=== PATIENT | male | born 1990 | race Caucasian/White ===

== ENCOUNTER 2021-03-14 10:24 | Observation (INO) | payer OTHER, SELFPAY ==
[2021-03-14] VITALS (25 sets, daily range): BP systolic 106–146; BP diastolic 57–96; PULSE 90–110; RESP 12–28; TEMP 36.2–38.9; O2SAT 98–100; BMI 34.5; BMI 48.9
--- NOTE | ~2021-03-14 | XR_ITS ---
EXAMINATION: XR abdomen obstructive series DATE: 03/15/2021 08:59 INDICATION: Assess for free intraperineal gas TECHNIQUE: Frontal supine and upright views of the abdomen were obtained. COMPARISON: CT dated 03/14/2021 FINDINGS: Small amount of gas scattered throughout the nondilated colon. No dilated gas-filled loops of bowel t o suggest obstruction. No free intraperitoneal gas appreciated. Visualized lung bases are clear. Hea rt size is normal. IMPRESSION: 1. No free intraperitoneal gas or dilated gas-filled loops of bowel to suggest obstruction. Reviewed, dictated and finalized at location A.
--- NOTE | ~2021-03-14 | CT_ITS ---
EXAMINATION: CT abdomen pelvis w con DATE: 03/14/2021 12:49 INDICATION: Left lower quadrant abdominal pain TECHNIQUE: Computed tomography (CT) of the abdomen and pelvis was performed with 100 mL Omnipaque-350 intravenous contrast. Automated exposure control and iterative reconstruction technique were employe d. The dose-length product was 1445.41 mGy-cm. COMPARISON: None FINDINGS: Lung bases are clear. Heart size is normal. No pericardial or pleural effusion. Liver, gallbladder, s pleen, pancreas, bilateral adrenal glands and kidneys are normal. Moderate diverticulosis with descen ding and sigmoid colon predominance. Prominent inflammatory stranding surrounding an approximately 4 x 3 cm region of phlegmonous change and a few small foci of extraluminal gas along the posterior aracelis in of the junction of the descending and sigmoid colon consistent with diverticulitis with microperfo ration. No organized abscess or more remote free intraperitoneal gas. Small bowel and appendix are no rmal. Bladder is normal. Minimal likely reactive free fluid in the deep pelvis. No pathologically enl arged abdominal or pelvic lymphadenopathy. Moderate thoracic and mild lumbar spondylosis. IMPRESSION: 1. Diverticulitis. Reviewed, dictated and finalized at location A. IMPRESSION: 1. Diverticulitis.
[2021-03-14 10:58] LABS: Basophils Absolute Auto 0.1 K/mm3 (0.0-0.1); Basophils Percent Auto 0.3 % (0.2-1.2); Eosinophils Absolute Auto 0.1 K/mm3 (0-0.3); Eosinophils Percent Auto 0.5 % (0-4.4); Hematocrit 39.4 % (42.0-52.0); Hemoglobin 13.1 g/dL (14.0-18.0); Immature Granulocyte Absolute 0.07 K/mm3 (0.00-0.031); Immature Granulocyte Percent A 0.4 % (0-0.5); Lymphocytes Absolute Auto 2.15 K/mm3 (0.9-3.2); Lymphocytes Percent Auto 11.7 % (18.3-44.2); Mean Corpuscular HGB Conc 33.2 g/dl (32-36); Mean Corpuscular Hemoglobin 27.8 pg (26-34); Mean Corpuscular Volume 83.7 fl (80-100); Monocytes Absolute Auto 1.8 K/mm3 (0.1-0.6); Monocytes Percent Auto 9.7 % (2.6-8.5); Neutrophils Absolute Auto 14.3 K/mm3 (1.3-6.7); Neutrophils Percent Auto 77.4 % (45.5-73.1); Platelet Count Result 327 k/mm3 (150-375); Red Blood Count 4.71 M/mm3 (4.6-6.20); Red Cell Distribution Width 13.9 % (11.5-14.5); White Blood Count 18.4 K/mm3 (4.5-10.0)
[2021-03-14 11:06] LABS: Add Urine Microscopic? YES; Appearance Urine Clear (Clear); Bilirubin Urine Negative (Negative); Blood Urine Negative (Negative); Color Urine Amber (Yellow); Glucose Urine UA Negative (Negative); Ketones Urine Negative (Negative); Leukocyte Esterase Ur Negative LEU/UL (Negative); Mucus Urine Few /lpf; Nitrate Urine Negative (Negative); Protein Urine 3+ mg/dL (Negative); RBC Urine 0-2 /hpf (0-2); Urobilinogen Urine Negative mg/dL (<2.0)
[2021-03-14 11:08] LABS: Alanine Aminotransferase 25 U/L (4-50); Albumin Level 4.3 g/dL (3.5-5.1); Alkaline Phosphatase 93 U/L (38-126); Anion Gap 13 mmol/L (8-16); Aspartate Amino Transferase 17 U/L (17-59); Bilirubin,Total 0.9 mg/dL (0.2-1.3); Blood Urea Nitrogen 9 mg/dL (9-20); Calcium 9.4 mg/dL (8.4-10.2); Carbon Dioxide 25 mmol/L (22-30); Chloride 101 mmol/L (98-107); Estimated CRCL calculation 98 ml/min; Estimated Glomerular Filt Rate > 60; Glucose 93 mg/dL (65-110); Lipase 71 U/L (23-300); Potassium 4.2 mmol/L (3.4-5.0); Sodium 139 mmol/L (137-145)
[2021-03-14 11:09] LABS: Specific Grav Ur 1.033 (1.001-1.035)
--- NOTE | 2021-03-14 13:16 | ED.ABDPAIN ---
HPI - Abdominal Pain General Chief Complaint: Abdominal Pain Stated Complaint: ABD PAIN Time Seen by Provider: 03/14/21 12:09 History of Present Illness HPI narrative: Patient is a 30-year-old male who presents ER with left side abdominal pain. Ongoing for 8 days. Tender to touch and with movement. Also worsens with eating. Radiates to the midline suprapubic region. Reports chronic diarrhea. No blood in it. Denies fevers or chills or sweats. No nausea or vomiting. Has been on ciprofloxacin for 2 days after seeing an urgent care. Related Data Home Medications Medication Instructions Recorded Confirmed ciprofloxacin HCl 500 mg PO BID 03/14/21 03/14/21 Allergies Allergy/AdvReac Type Severity Reaction Status Date / Time No Known Allergies Allergy Verified 03/14/21 15:52 Review of Systems Review of Systems: All systems reviewed & are unremarkable except as noted in HPI and below Constitutional: Constitutional: Denies chills, Denies fever(s) and Denies weakness ENT: Denies nasal congestion and Denies sore throat Respiratory: Respiratory: Denies cough and Denies dyspnea Gastrointestinal: Gastrointestinal: Reports abdominal pain, Reports diarrhea, Denies nausea and Denies vomiting Genitourinary: Genitourinary: Denies dysuria and Denies urinary frequency PMFSH Past Medical History Medical History Healthy adult male Obesity (BMI 35.0-39.9 without comorbidity) Surgical History Surgical History No history of previous surgery Family History Family History Grandparent Diabetes mellitus Coronary artery disease involving coronary bypass graft Mother Hypertension Grandparent Bladder cancer Social History Social History Smoking status: Current every day smoker Tobacco type: e-cigarettes/vaping Second hand tobacco smoke exposure: Yes Additional smoking assessment comments: patient vapes Alcohol intake: current Substance use: never Substance use type: does not use Last use: rarely drinks alcohol Gender identity (if verbalized by the patient): Male Spiritual care concerns: No Exam Narrative: GENERAL: Well-appearing, well-nourished, and in no acute distress. HEAD: Normocephalic, atraumatic. EYES: PERRL and EOMI. CHEST: Clear to auscultation. No respiratory distress. HEART: Regular rate and rhythm. Normal peripheral pulses. ABDOMEN: Soft, tender palpation left lower quadrant with guarding, nondistended. EXTREMITIES: Normal range of motion. No edema. SKIN: Warm, dry, no rash. NEURO: Alert and oriented x3. PSYCH: Normal mood and affect. Course Course Emergency Course: Admit to hospitalist service. General surgery consulting. Patient aware of diagnosis and treatment plan. Vital Signs Vital signs: Vital Signs Temperature 97.5 F L 03/14/21 10:26 Pulse Rate 100 03/14/21 10:26 Respiratory Rate 20 03/14/21 10:26 Blood Pressure 143/96 H 03/14/21 10:26 Pulse Oximetry 100 03/14/21 10:26 Temperature 99.6 F 03/14/21 21:51 Pulse Rate 110 H 03/14/21 21:51 Respiratory Rate 16 03/14/21 21:51 Blood Pressure 119/76 03/14/21 21:51 Pulse Oximetry 98 03/14/21 21:51 MDM - Abdominal Pain Lab Data Result diagrams: 03/14/21 10:35 03/14/21 10:35 Labs: Lab Results 03/14/21 03/14/21 03/14/21 Range/Units 10:35 10:35 10:42 WBC 18.4 H (4.5-10.0) K/mm3 RBC 4.71 (4.6-6.20) M/mm3 Hgb 13.1 L (14.0-18.0) g/dL Hct 39.4 L (42.0-52.0) % MCV 83.7 (80-100) fl MCH 27.8 (26-34) pg MCHC 33.2 (32-36) g/dl RDW 13.9 (11.5-14.5) % Plt Count 327 (150-375) k/mm3 MPV 10.0 (7.4-10.4) fl Immature Gran % (Auto) 0.4 (0-0.5) % Neut % (Auto) 77.4 H (45.5-7
[2021-03-14] MEDS: MORPHINE SULFATE (*CRX) 4 MG/ML INJ IV PUSH ×2 (13:58→17:34)
--- NOTE | 2021-03-14 14:44 | PM.CNGS ---
Assessment and Plan Assessment and plan (1) Diverticulitis of large intestine with perforation without abscess or bleeding: Onset Date: ~02/2021 Code(s): K57.20 - Diverticulitis of large intestine with perforation and abscess without bleeding Status: Acute Assessment and Plan: is the main reason for the patient's admission. We would like to put him in on IV antibiotics for several days. Keep him NPO overnight and repeat abdominal film to make sure there is not increased free air tomorrow morning. If there is not consider gradually advancing his diet. Then he will go home so that he will get a total of 10-14 days of antibiotics. Discussed with him possible colonoscopy as a follow-up afterwards to determine the extent of the diverticuli. May need to get GI involved in doing this since the patient is significantly overweight. I have explained diverticulitis to him provided with the patient information min regarding this for him to read and I will answer more questions tomorrow. (2) Obesity (BMI 35.0-39.9 without comorbidity): Code(s): E66.9 - Obesity, unspecified Status: Acute Additional Plan IV fluid rehydration IV antibiotics Repeat labs in a.m. Repeat abdominal film in a.m. to rule out increased amount of free air. Ambulate in the hallway t.i.d. History of Present Illness Consult details Consult date: 03/14/21 Reason for consult: abdominal pain Requesting physician: Roly Covarrubias MD Narrative: Patient is a 30-year-old male who presents to the ER with left side lower abdominal pain. He says this started about 8 days. Patient states that it gradually without worse. He was seen in urgent care for evaluation several days ago and got put on soft ciprofloxacin and prickly. Do not know if his previous CT was done for that. Prior to this he has never known that he had diverticulitis.Tender to touch and with movement. Also, it worsens with eating. Radiates to the midline suprapubic region. Reports chronic diarrhea. No blood in it. Denies fevers or chills or sweats. No nausea or vomiting. Has been on ciprofloxacin for 2 days after seeing an urgent care. I was called after the workup in the emergency room today at [facility] shows significant inflammation for a 2-6 cm segment of sigmoid colon with some small air bubbles near by. No other free air within the abdomen and no other specific abnormalities within the abdomen. Patient states he thinks he has lost about 10 lb in weight over the last week to 10 days. Prior to that he thinks he weighed 320 lb. Review of Systems Constitutional: Constitutional: Reports as per HPI and Denies headache(s) Eyes: Eyes: Denies loss of vision and Denies eye pain ENT: Reports Normal hearing present, Denies change in voice, Denies dizziness and Denies headache(s) Cardiovascular: Cardiovascular: Denies chest pain and Denies dyspnea Respiratory: Respiratory: Denies dyspnea and Denies wheezing Gastrointestinal: Gastrointestinal: Reports abdominal pain ( Mainly below the level umbilicus, left greater than right), Reports change in stool character, Reports diarrhea ( loose stools least 3 times a day for most of his life and now slightly ---), Denies nausea and Denies vomiting Comments: and now the loose stools are slightly more frequent over the last 6 days. Genitourinary: Genitourinary: Reports no additional male genitourinary complaints Musculoskeletal: Musculoskeletal: Denies back pain and Denies arthralgias Neurologic: Reports Normal hearing present, Denies dizziness, Denies headache(s), Denies loss of vision and Denies memory loss Psychiatric: Psychiatric: Denies memory loss and Denies panic attacks Endocrine: Endocrine: Reports no additional endocrine complaints Hematologic/Lymphatic: Hematologic/Lymphatic: Reports no additional hematologic/lymphatic complaints Allergic/Immunologic: Allergic/Immunologic: Denies wheezing PMFSH Past Medical History Med
--- NOTE | 2021-03-14 15:45 | ADMGEN ---
This patient, Oscar Kebede, was admitted to Medical Room 250-. Patient/family oriented to hospital policies and general routines including ID bracelet, bed and alarms, visiting hours, pain management, procedures, bathroom and other care routines, personal items, smoking policy, room service/diet, and visiting hours. Information on how to activate the Rapid Response Team has been discussed. Patient/Family are encouraged to report perceived risks to care and to ask questions if they do not understand what they are told or what they should do.
--- NOTE | 2021-03-14 16:05 | PM.IMHP ---
H&P: HPI History of Present Illness Date/Time: 03/14/21 16:05 Chief Complaint: abdominal pain Narrative: Oscar Kebede is a 30 year man with a past medical history of obesity and vaping who has been admitted after presenting to the ED with complaints of worsening lower abdominal pain. He denies any similar symptoms in the past. He tells me the pain started last Tuesday. He reports associated diarrhea and increased pain with eating. He denies any fever, chills, nausea or vomiting. He was seen in the urgent care 2 days ago and prescribed ciprofloxacin. He was taking ibuprofen with no improvement in pain. ED evaluation included and revealed: WBC 18.4; CT of A/P showed moderate diverticulosis with prominent inflammatory stranding surrounding an approximately 4x3 cm region of phlegmonous change and a few small foci of extraluminal gas along the posterior margin of the junction of the descending and sigmoid colon consistent with diverticulitis with microperforation. IV antibiotics were initiated and general surgery was consulted. The patient has been admitted for further evaluation and treatment. Review of Systems Review of Systems: All systems reviewed & are unremarkable except as noted in HPI and below PMFSH Past Medical History Medical History Healthy adult male Obesity (BMI 35.0-39.9 without comorbidity) Surgical History Surgical History No history of previous surgery Family History Family History Grandparent Diabetes mellitus Coronary artery disease involving coronary bypass graft Mother Hypertension Grandparent Bladder cancer Social History Social History Smoking status: Current every day smoker Tobacco type: e-cigarettes/vaping Second hand tobacco smoke exposure: Yes Additional smoking assessment comments: patient vapes Alcohol intake: current Substance use: never Substance use type: does not use Last use: rarely drinks alcohol Gender identity (if verbalized by the patient): Male Spiritual care concerns: No Meds Home Medications and Allergies Home Medications Medication Instructions Recorded Confirmed Type ciprofloxacin HCl 500 mg PO BID 03/14/21 03/14/21 History Allergies Allergy/AdvReac Type Severity Reaction Status Date / Time No Known Allergies Allergy Verified 03/14/21 15:52 Vital Signs Vital Signs - 24 hr 03/14/21 10:26 03/14/21 12:14 03/14/21 12:15 Temperature 36.4 C L Pulse Rate 100 91 94 Respiratory Rate 20 17 22 H Blood Pressure 143/96 H Pulse Oximetry 100 99 99 03/14/21 12:16 03/14/21 12:30 03/14/21 12:31 Temperature Pulse Rate 93 92 93 Respiratory Rate 17 22 H 14 Blood Pressure 139/57 L 142/94 H Pulse Oximetry 100 100 03/14/21 12:52 03/14/21 12:53 03/14/21 12:54 Temperature Pulse Rate 91 94 104 H Respiratory Rate 20 20 19 Blood Pressure 136/66 Pulse Oximetry 100 100 100 03/14/21 13:01 03/14/21 13:02 03/14/21 13:15 Temperature Pulse Rate 95 92 93 Respiratory Rate 23 H 21 H 22 H Blood Pressure 126/84 Pulse Oximetry 100 100 99 03/14/21 13:16 03/14/21 13:52 03/14/21 14:00 Temperature Pulse Rate 90 92 95 Respiratory Rate 26 H 28 H 20 Blood Pressure 129/79 Pulse Oximetry 100 100 100 03/14/21 14:01 03/14/21 14:15 03/14/21 14:16 Temperature Pulse Rate 91 93 90 Respiratory Rate 22 H 20 20 Blood Pressure 141/78 H 129/80 Pulse Oximetry 100 99 99 03/14/21 14:30 03/14/21 14:34 03/14/21 15:20 Temperature Pulse Rate 90 90 92 Respiratory Rate 12 20 14 Blood Pressure 144/92 H 106/69 Pulse Oximetry 99 100 99 Exam Const: General: no acute distress, alert and awake Orientation/consciousness: patient oriented x3 HENMT: Head: normocephalic an
[2021-03-14] MEDS: SODIUM CHLORIDE 0.9% IV 1,000 ML 75 ML IV CONT (17:00)
[2021-03-14] MEDS: NICOTINE (*PBKC) 14 MG PATCH 1 PATCH TRANSDERM (17:01)
[2021-03-14] MEDS: HEPARIN SODIUM 5,000 UNITS/ML VIAL 5000 UNITS SUB-Q (17:09)
[2021-03-14] MEDS: ACETAMINOPHEN 325 MG TABLET 650 MG PO (20:54)
[2021-03-15 00:38] VITALS: TEMP 37.2
[2021-03-15 05:29] LABS: Basophils Absolute Auto 0.1 K/mm3 (0.0-0.1); Basophils Percent Auto 0.4 % (0.2-1.2); Eosinophils Absolute Auto 0.2 K/mm3 (0-0.3); Eosinophils Percent Auto 1.7 % (0-4.4); Hematocrit 37.4 % (42.0-52.0); Hemoglobin 12.1 g/dL (14.0-18.0); Immature Granulocyte Absolute 0.06 K/mm3 (0.00-0.031); Immature Granulocyte Percent A 0.4 % (0-0.5); Lymphocytes Absolute Auto 2.63 K/mm3 (0.9-3.2); Mean Corpuscular HGB Conc 32.4 g/dl (32-36); Mean Corpuscular Hemoglobin 27.4 pg (26-34); Mean Corpuscular Volume 84.8 fl (80-100); Monocytes Absolute Auto 1.5 K/mm3 (0.1-0.6); Monocytes Percent Auto 10.8 % (2.6-8.5); Neutrophils Absolute Auto 9.4 K/mm3 (1.3-6.7); Neutrophils Percent Auto 67.7 % (45.5-73.1); Platelet Count Result 273 k/mm3 (150-375); Red Blood Count 4.41 M/mm3 (4.6-6.20); Red Cell Distribution Width 14.2 % (11.5-14.5); White Blood Count 13.8 K/mm3 (4.5-10.0)
[2021-03-15 05:45] LABS: Anion Gap 12 mmol/L (8-16); Blood Urea Nitrogen 8 mg/dL (9-20); Calcium 8.9 mg/dL (8.4-10.2); Carbon Dioxide 23 mmol/L (22-30); Chloride 102 mmol/L (98-107); Estimated CRCL calculation 144 ml/min; Estimated Glomerular Filt Rate > 60; Glucose 84 mg/dL (65-110); Magnesium 1.7 mg/dL (1.6-2.3); Potassium 3.8 mmol/L (3.4-5.0); Sodium 137 mmol/L (137-145)
[2021-03-15 06:00] VITALS: BP 135/72; PULSE 75; RESP 18; TEMP 36.2; O2SAT 100
[2021-03-15] MEDS: HEPARIN SODIUM 5,000 UNITS/ML VIAL 5000 UNITS SUB-Q ×2 (06:02→17:04)
[2021-03-15] MEDS: NICOTINE (*PBKC) 14 MG PATCH 1 PATCH TRANSDERM (08:03)
[2021-03-15] MEDS: SODIUM CHLORIDE 0.9% IV 1,000 ML 75 ML IV CONT (08:05)
[2021-03-15 14:00] VITALS: BP 131/75; PULSE 87; RESP 16; TEMP 36.4; O2SAT 98
--- NOTE | 2021-03-15 15:38 | PM.IMPN ---
Progress Note: A&P Assessment and Plan (1) Diverticulitis of large intestine with perforation without abscess or bleeding: Onset Date: ~02/2021 Code(s): K57.20 - Diverticulitis of large intestine with perforation and abscess without bleeding Status: Acute Assessment and Plan: CT of A/P noted above IV zosyn Pain management NPO GS consulted, recommendations appreciated Monitor Repeat abdominal x-ray today showed no free intraperitoneal gas or dilated gas-filled loops of the bowel to suggest obstruction. (2) Pharmacologic contraindication to deep vein thrombosis (DVT) prophylaxis: Code(s): Z53.09 - Procedure and treatment not carried out because of other contraindication Status: Acute Assessment and Plan: Heparin (3) Vaping nicotine dependence, non-tobacco product: Code(s): F17.200 - Nicotine dependence, unspecified, uncomplicated Status: Acute Assessment and Plan: Cessation advised Nitroderm (4) Morbid obesity: Code(s): E66.01 - Morbid (severe) obesity due to excess calories Status: Acute Assessment and Plan: Lifestyle modifications encouraged Subjective Date/time seen: 03/15/21 07:30 Interval history: Oscar Kebede is a 30 year man with a past medical history of obesity and vaping who has been admitted after presenting to the ED with complaints of worsening lower abdominal pain. Patient states he is feeling lot better today with his belly pain is not as bad. He also stated that he was very hungry and he was felt a little weak and fatigued today. He has had a BM today however he said with liquid which he claims some most of the time his BMs are liquid. Patient denied chest pain, shortness of breath, nausea, vomiting, chills. Review of Systems Review of Systems: All systems reviewed & are unremarkable except as noted in HPI and below Exam Const: General: no acute distress, alert and awake Orientation/consciousness: patient oriented x3 HENMT: Head: normocephalic and atraumatic Ears: hearing grossly normal bilaterally and external ears normal Face and sinus: face symmetric Mouth: Yes Normal oral and palatal mucosa present Eyes: Pupils: Equal, round and reactive pupils present EOM: EOMs intact bilaterally Neck: Neck: full ROM, trachea midline and no JVD Thyroid: thyroid normal Chest: Chest palpation & inspection: normal inspection of the chest Resp: Effort & Inspection: normal respiratory effort Auscultation: clear to auscultation bilaterally Cardio: Jugular venous distension: no JVD Rate: regular rate Rhythm: regular rhythm Heart sounds: S1 normal heart sound present and S2 normal heart sound present GI: Inspection: normal to inspection Auscultation: normal bowel sounds : General: Yes no CVA tenderness Back/Spine/Pelvis: Back: no CVA tenderness Skin: General skin exam: normal color Rashes: no rashes Neuro: General: patient oriented x3 and CN's II-XI intact bilaterally Cranial nerves: Yes Equal, round and reactive pupils present Speech: normal speech Psych: Appearance: grossly normal Affect: normal affect Judgement: Good judgement present (Psych) Objective Data Vital Signs Vital Signs: Vital Signs - 24 hr 03/14/21 16:00 03/14/21 20:54 03/14/21 21:50 Temperature 36.2 C L 38.8 C H 37.6 C Pulse Rate 91 Respiratory Rate 16 Blood Pressure 146/71 H Pulse Oximetry 100 03/14/21 21:51 03/15/21 00:38 03/15/21 06:00 Temperature 37.6 C 37.2 C 36.2 C L Pulse Rate 110 H 75 Respiratory Rate 16 18 Blood Pressure 119/76 135/72 Pulse Oximetry 98 100 03/15/21 14:00 Temperature 36.4 C Pulse Rate 87 Respiratory Rate 98 H Blood Pressure 131/75 Pulse Oximetry 16 L Intake/Output Intake/Output: Intake & Output 03/12/21 03/13/21 03/14/21 03/15/21 23:59 23:59 23:59 23:59 Intake Total 100 1150 Balance 100 1150 Meds/Results Medications: Active Medications Generic Name Dose Rou
--- NOTE | 2021-03-15 16:58 | PM.PNGS ---
Progress Note: A&P Assessment and Plan (1) Diverticulitis of large intestine with perforation without abscess or bleeding: Onset Date: ~02/2021 Code(s): K57.20 - Diverticulitis of large intestine with perforation and abscess without bleeding Status: Acute Assessment and Plan: This is the main reason for the patient's admission. We would like to put him in on IV antibiotics for several days. Keep him NPO overnight and repeat abdominal film to make sure there is not increased free air tomorrow morning. If there is not consider gradually advancing his diet. Then he will go home on Cipro and Flagyl so that he will get a total of 10-14 days of antibiotics. Discussed with him possible colonoscopy as a follow-up afterwards to determine the extent of the diverticuli. May need to get GI involved in doing this since the patient is significantly overweight. I have explained diverticulitis to him provided with the patient information manaul regarding this for him to read and I will answer more questions as I continue to see him. (2) Obesity (BMI 35.0-39.9 without comorbidity): Code(s): E66.9 - Obesity, unspecified Status: Acute Additional Plan IV fluid rehydration IV antibiotics Repeat labs in a.m. WBC sown some today). Ambulate in the hallway t.i.d. Subjective Subjective Date/Time Seen: 03/15/21 16:58 Patient reports: no new complaints and feels better Interval history: patient states he needed morphine for some pain yesterday but today it is better any does not need it. He has about 3/10 pain and refused even Tylenol for this. He is hungry and would like to start a diet. Positive flatus no bowel movement yet in the hospital. Review of Systems Constitutional: Constitutional: Reports no additional constitutional complaints ENT: Reports other (Mucous Membranes moist.) Cardiovascular: Cardiovascular: Denies dyspnea Respiratory: Respiratory: Denies pain on inspiration and Denies dyspnea Musculoskeletal: Musculoskeletal: Reports other (No calf swelling or edema) Integumentary/Breasts: Skin/Breast: Reports system reviewed and no additional complaints, except as docu Exam Const: General: cooperative, no acute distress, alert and awake Orientation/consciousness: patient oriented x3 HENMT: Mouth: Yes moist mucous membranes Neck: Neck: normal visual inspection Chest: Chest palpation & inspection: normal inspection of the chest Resp: Effort & Inspection: normal respiratory effort Auscultation: clear to auscultation bilaterally Cardio: Jugular venous distension: no JVD Rate: regular rate Rhythm: regular rhythm GI: GI Palp: Yes Tenderness to palpation present (GI) ( Mild in left lower quadrant but improved elsewhere.) Auscultation: normal bowel sounds Rectal Exam: deferred Neuro: General: patient oriented x3 and moves all extremities Speech: normal speech Extrem: General: normal exam except as noted Psych: Mental Status: mental status grossly normal Speech and movement: Normal speech and movement present Affect: normal affect Thought content: Yes Normal thought content present Objective Data Vital Signs Vital Signs: Vital Signs - 24 hr 03/14/21 20:54 03/14/21 21:50 03/14/21 21:51 Temperature 38.8 C H 37.6 C 37.6 C Pulse Rate 110 H Respiratory Rate 16 Blood Pressure 119/76 Pulse Oximetry 98 03/15/21 00:38 03/15/21 06:00 03/15/21 14:00 Temperature 37.2 C 36.2 C L 36.4 C Pulse Rate 75 87 Respiratory Rate 18 98 H Blood Pressure 135/72 131/75 Pulse Oximetry 100 16 L Intake/Output Intake/Output: Intake & Output 03/12/21 03/13/21 03/14/21 03/15/21 23:59 23:59 23:59 23:59 Intake Total 100 1150 Balance 100 1150 Meds/Results Medications: Active Medications Generic Name Dose Route Start Last Admin Trade Name Freq PRN Reason Stop Dose Admin Acetaminophen 650 mg 03/14/21 13:31 03/14/21 20:54 Acetaminophen 325 Mg Tablet PO 65
[2021-03-15] MEDS: metroNIDAZOLE 250 MG TABLET 500 MG PO ×2 (17:08→23:46)
[2021-03-15 21:41] VITALS: BP 140/83; PULSE 84; RESP 16; TEMP 36.2; O2SAT 97
[2021-03-16 05:58] VITALS: BP 117/59; BP 117/72; PULSE 76; PULSE 79; RESP 16; TEMP 36.6; TEMP 37.1; O2SAT 94; O2SAT 97
[2021-03-16 06:21] LABS: Hematocrit 36.7 % (42.0-52.0); Hemoglobin 11.7 g/dL (14.0-18.0); Mean Corpuscular HGB Conc 31.9 g/dl (32-36); Mean Corpuscular Hemoglobin 27.1 pg (26-34); Mean Corpuscular Volume 85.2 fl (80-100); Platelet Count Result 279 k/mm3 (150-375); Red Blood Count 4.31 M/mm3 (4.6-6.20); White Blood Count 7.7 K/mm3 (4.5-10.0)
[2021-03-16] MEDS: HEPARIN SODIUM 5,000 UNITS/ML VIAL 5000 UNITS SUB-Q (06:24)
[2021-03-16] MEDS: metroNIDAZOLE 250 MG TABLET 500 MG PO ×2 (06:24→13:54)
[2021-03-16 06:45] LABS: Alanine Aminotransferase 34 U/L (4-50); Albumin Level 3.4 g/dL (3.5-5.1); Alkaline Phosphatase 74 U/L (38-126); Anion Gap 9 mmol/L (8-16); Aspartate Amino Transferase 27 U/L (17-59); Bilirubin,Total 0.3 mg/dL (0.2-1.3); Blood Urea Nitrogen 6 mg/dL (9-20); Carbon Dioxide 24 mmol/L (22-30); Chloride 106 mmol/L (98-107); Estimated CRCL calculation 130 ml/min; Estimated Glomerular Filt Rate > 60; Glucose 85 mg/dL (65-110); Potassium 4.2 mmol/L (3.4-5.0); Sodium 139 mmol/L (137-145)
[2021-03-16] MEDS: NICOTINE (*PBKC) 14 MG PATCH 1 PATCH TRANSDERM (08:05)
--- NOTE | 2021-03-16 13:34 | PM.DS ---
DS: Admitting Diagnosis Admitting Diagnosis diverticulitis DS: Discharge Diagnosis Discharge Diagnosis (1) Diverticulitis of large intestine with perforation without abscess or bleeding: Onset Date: ~02/2021 Code(s): K57.20 - Diverticulitis of large intestine with perforation and abscess without bleeding Status: Acute Assessment and Plan: CT of A/P noted above IV zosyn Pain management NPO GS consulted, recommendations appreciated Monitor Repeat abdominal x-ray today showed no free intraperitoneal gas or dilated gas-filled loops of the bowel to suggest obstruction. (2) Pharmacologic contraindication to deep vein thrombosis (DVT) prophylaxis: Code(s): Z53.09 - Procedure and treatment not carried out because of other contraindication Status: Acute Assessment and Plan: Heparin (3) Vaping nicotine dependence, non-tobacco product: Code(s): F17.200 - Nicotine dependence, unspecified, uncomplicated Status: Acute Assessment and Plan: Cessation advised Nitroderm (4) Morbid obesity: Code(s): E66.01 - Morbid (severe) obesity due to excess calories Status: Acute Assessment and Plan: Lifestyle modifications encouraged DS: Summary Hospital Course Hospital Course: Date of service 03/16/2021 at 10:15 Oscar Kebede is a 30 year man with a past medical history of obesity and vaping who has been admitted after presenting to the ED with complaints of worsening lower abdominal pain. since admission patient was treated for diverticulitis. Abdomen and pelvis CT showed diverticulitis with predominant inflammatory stranding surrounding approximate 4 x 3 cm region of the phlegmonous. patient also had a repeat abdominal x-ray that showed no free intra peritoneal gas or dilated gas-filled loops on bowel to suggest obstruction. General surgery has been consulted and has been following the patient. General surgery had recommended the patient get a colonoscopy in roughly 2 weeks. GI was consulted get a set up. Patient stated that he has had this happened to him before. Patient does report having bowel movements which he has had has been watery which he states all of his bowel movements usually are watery. WBCs started off at 18.4 and 7.7 today hemoglobin hematocrit remained stable. Electrolytes have been balancing kidney function is good according to labs. Vital signs have been stable throughout admission. Patient has no current complaints or issues. Patient denies chest pain, shortness of breath, nausea, vomiting, abdominal pain, weakness or fatigue. Status at Discharge Functional status at discharge: independent ambulation Overall status at discharge: patient is back to baseline Time Spent with Patient Time attestation: Total time spent providing and/or coordinating discharge services: 63 minutes Time spent: Greater than 30 minutes Specific discharge activities: coordination of care, documentation, lab review, result review, physical exam Exam Const: General: no acute distress, alert, awake and Physically active Orientation/consciousness: oriented to person, oriented to place, oriented to time and patient oriented x3 HENMT: Head: normocephalic and atraumatic Ears: hearing grossly normal bilaterally and external ears normal Face and sinus: face symmetric Mouth: Yes Normal oral and palatal mucosa present Eyes: Pupils: Equal, round and reactive pupils present EOM: EOMs intact bilaterally Neck: Neck: full ROM, trachea midline and no JVD Thyroid: thyroid normal Chest: Chest palpation & inspection: normal inspection of the chest Resp: Effort & Inspection: normal respiratory effort Auscultation: clear to auscultation bilaterally Cardio: Jugular venous distension: no JVD Rate: regular rate Rhythm: regular rhythm Heart sounds: S1 normal heart sound present and S2 normal heart sound present GI: Inspection: normal to inspection Auscultation: normal bowel s
[2021-03-16 14:00] VITALS: BP 127/76; PULSE 87; RESP 16; TEMP 36.2; O2SAT 100
--- NOTE | 2021-03-16 16:02 | WPDGICN ---
Assessment and Plan Assessment and plan (1) Diverticulitis of large intestine with perforation without abscess or bleeding: Onset Date: ~02/2021 Code(s): K57.20 - Diverticulitis of large intestine with perforation and abscess without bleeding Status: Acute Assessment and Plan: he was evaluated by surgery and plan was medical treatment with iv antibiotics, only had microperforation and he is responding to current treatment. No more pain and now with normal wbc. Complete 10 more days of antibiotics My office will set up a colonoscopy in another 6 more weeks (he is agreeable to have one) once diverticulitis is completely resolved. low fiber diet for now (2) LLQ pain: Code(s): R10.32 - Left lower quadrant pain Status: Acute Assessment and Plan: resolved (3) Leukocytosis: Code(s): D72.829 - Elevated white blood cell count, unspecified Status: Acute Assessment and Plan: resolved after antibiotics (4) Vaping nicotine dependence, non-tobacco product: Code(s): F17.200 - Nicotine dependence, unspecified, uncomplicated Status: Acute (5) Morbid obesity: Code(s): E66.01 - Morbid (severe) obesity due to excess calories Status: Acute Assessment and Plan: diet GI Consult Note Consult date/time: 03/16/21 16:02 Reason for consult: diverticulitis HPI: Oscar Kebede is a 30 year old male with history of obesity and vaping, denies chronic medical illness and he is not taking any meds in regular basis. He was admitted 3 days ago with worsening lower abdominal pain that started 7 days prior to his admission and got severe, mostly localized in the LLQ. He denies any similar symptoms in the past. He went to urgent care and given empirically on ciprofloxacin. Because pain was severe, he came here and CT scan a/p obtained, reviewed- Moderate diverticulosis with descending and sigmoid colon predominance. Prominent inflammatory stranding surrounding an approximately 4 x 3 cm region of phlegmonous change and a few small foci of extraluminal gas along the posterior margin of the junction of the descending and sigmoid colon consistent with diverticulitis with microperforation. No organized abscess or more remote free intraperitoneal gas. He also had leukocytosis 18k, today normal. He has been getting iv antibiotics and pain now is gone, also tolerating diet. No blood in stools, at baseline he has 2 loose stools. Never had a colonoscopy. Review of Systems Constitutional: Constitutional: Reports chills Eyes: Eyes: Denies blurry vision ENT: Reports Normal hearing present Cardiovascular: Cardiovascular: Denies chest pain Respiratory: Respiratory: Denies dyspnea Gastrointestinal: Gastrointestinal: Reports abdominal pain Genitourinary: Genitourinary: Denies urinary incontinence Musculoskeletal: Musculoskeletal: Denies neck pain Integumentary/Breasts: Skin/Breast: Denies dry skin Neurologic: Denies headache(s) Psychiatric: Psychiatric: Denies behavioral changes [facility] Past Medical History Medical History (Updated 03/16/21 @ 16:08 by Chris Curry MD) Healthy adult male Leukocytosis LLQ pain Obesity (BMI 35.0-39.9 without comorbidity) Surgical History Surgical History No history of previous surgery Family History Family History Grandparent Diabetes mellitus Coronary artery disease involving coronary bypass graft Mother Hypertension Grandparent Bladder cancer Social History Social History Smoking status: Current every day smoker Tobacco type: e-cigarettes/vaping Second hand tobacco smoke exposure: Yes Additional smoking assessment comments: patient vapes Alcohol intake: current Substance use: never Substance use type: does not use
== END 2021-03-16 16:43 | disposition home or self-care (01) ==
LOC: ANHED 13:39 → ANH2MED 15:35
PROVIDERS: Emergency Medicine; Nurse Practitioner; Nurse Practitioner Adult Health; Admitting Provider Internal Medicine; Emergency Provider Emergency Medicine; Visit Provider Student in an Organized Health Care Education/Training Program
DX: K57.20 Diverticulitis of large intestine with perforation and abscess without bleeding (principal); Z68.42 Body mass index [BMI] 45.0-49.9, adult; E66.01 Morbid (severe) obesity due to excess calories; F17.210 Nicotine dependence, cigarettes, uncomplicated
CPT/HCPCS: 36415; 74019; 74177; 80048; 80053; 81001; 83690; 83735; 85025; 85027; 96361; 96365; 96366; 96372; 96375; 96376; 99285; A9270; G0378; G0379; J1644; J2270; J2543; J7030; Q9967

== ENCOUNTER 2021-04-10 03:08 | Day surgery (SDC) | payer OTHER, SELFPAY ==
[2021-03-31 13:45] VITALS: BMI 49.4
[2021-04-10 06:57] VITALS: BP 146/97; PULSE 81; RESP 18; TEMP 35.8; O2SAT 98; BMI 48.6
[2021-04-10] MEDS: LACTATED RINGERS 1,000 ML 150 ML IV CONT (07:54)
--- NOTE | 2021-04-10 07:56 | WPDANESEPPF ---
Anes - Initial Pre Proc Eval Procedure: Operation Date: 04/10/21 08:00 Proposed Procedures p Colonoscopy - Chris Curry MD Date/Time: 04/10/21 07:56 Surgeon: Chris Curry MD Pre Op Diagnosis: Diverticulitis Patient Data Age: 30 Gender: M Height: 1.7 m Weight: 141 kg Last Vital Signs Temp 96.5 F L 04/10/21 06:57 Pulse 81 04/10/21 06:57 Resp 18 04/10/21 06:57 BP 146/97 H 04/10/21 06:57 Pulse Ox 98 04/10/21 06:57 Allergies Allergy/AdvReac Type Severity Reaction Status Date / Time No Known Allergies Allergy Verified 04/10/21 06:56 Home Medications Medication Instructions Recorded Confirmed Type No Home Medications 03/31/21 03/31/21 History Patient hx anesthesia problems: none Family hx anesthesia problems: none PMFSH Past Medical History Medical History (Updated 03/16/21 @ 16:08 by Chris Curry MD) Healthy adult male Leukocytosis LLQ pain Obesity (BMI 35.0-39.9 without comorbidity) Surgical History Surgical History No history of previous surgery Family History Family History Grandparent Diabetes mellitus Coronary artery disease involving coronary bypass graft Mother Hypertension Grandparent Bladder cancer Social History Social History Smoking status: Current every day smoker Tobacco type: e-cigarettes/vaping Second hand tobacco smoke exposure: Yes Additional smoking assessment comments: patient vapes Alcohol intake: current Substance use: never Substance use type: does not use Last use: rarely drinks alcohol Living arrangements: with family Gender identity (if verbalized by the patient): Male Spiritual care concerns: No Anes - Eval Final PreProcedure Day of Procedure 04/10/21 07:56 Patient weight: morbidly obese Heart: regular rate and rhythm Lungs: clear to auscultation Airway: Mallampati scale class III Neurological: alert and oriented Last oral intake: >/= 8 hours ASA classification: III Emergent: no Anesthetic plan: proceed Anesthesia type and monitoring: general GIVS and standard monitoring Informed Consent: The patient's anesthetic plan and its attendant risks and benefits were discussed with the patient/family/POA. Questions were solicited and answers provided to the satisfaction of the patient/family/POA.
--- NOTE | 2021-04-10 08:04 | PM.HPGS ---
History of Present Illness History of Present Illness Consent: Risks, benefits, and alternatives have been discussed and questions answered. Patient agrees to proceed with procedure. Chief complaint: Diverticulitis Narrative: Oscar Kebede is a 30 year old male that several weeks ago was diagnosed with descending and sigmoid colon diverticulitis with microperforation, treated medically. Never had colonoscopy Review of Systems Constitutional: Constitutional: Denies headache(s) and Denies weakness Eyes: Eyes: Denies blurry vision ENT: Reports Normal hearing present, Denies headache(s) and Denies neck pain Cardiovascular: Cardiovascular: Denies chest pain and Denies dyspnea Respiratory: Respiratory: Denies dyspnea Gastrointestinal: Gastrointestinal: Reports no additional gastrointestinal complaints Genitourinary: Genitourinary: Denies dysuria Musculoskeletal: Musculoskeletal: Denies neck pain Integumentary/Breasts: Skin/Breast: Denies dry skin Neurologic: Reports Normal hearing present, Denies headache(s) and Denies weakness Psychiatric: Psychiatric: Denies anxiety Endocrine: Endocrine: Denies change in body appearance Hematologic/Lymphatic: Hematologic/Lymphatic: Denies easy bleeding Allergic/Immunologic: Allergic/Immunologic: Denies urticaria PMFSH Past Medical History Medical History (Updated 03/16/21 @ 16:08 by Chris Curry MD) Healthy adult male Leukocytosis LLQ pain Obesity (BMI 35.0-39.9 without comorbidity) Surgical History Surgical History No history of previous surgery Family History Family History Grandparent Diabetes mellitus Coronary artery disease involving coronary bypass graft Mother Hypertension Grandparent Bladder cancer Social History Social History Smoking status: Current every day smoker Tobacco type: e-cigarettes/vaping Second hand tobacco smoke exposure: Yes Additional smoking assessment comments: patient vapes Alcohol intake: current Substance use: never Substance use type: does not use Last use: rarely drinks alcohol Living arrangements: with family Gender identity (if verbalized by the patient): Male Spiritual care concerns: No Meds Home Medications and Allergies Home Medications Medication Instructions Recorded Confirmed Type No Home Medications 03/31/21 03/31/21 History Allergies Allergy/AdvReac Type Severity Reaction Status Date / Time No Known Allergies Allergy Verified 04/10/21 06:56 Vital Signs Vital Signs - 24 hr 04/10/21 06:57 Temperature 96.5 F L Pulse Rate 81 Respiratory Rate 18 Blood Pressure 146/97 H Pulse Oximetry 98 Exam Const: General: comfortable and no acute distress HENMT: General nose exam: Normal nares present Eyes: General: appearance normal, both eyes and all related structures Neck: Neck: no JVD Resp: Auscultation: clear to auscultation bilaterally Cardio: Rate: regular rate Rhythm: regular rhythm GI: Inspection: non-distended GI Palp: Yes Soft to palpation Skin: General skin exam: normal color Neuro: General: gait normal Speech: normal speech Extrem: General: normal to inspection Psych: Mental Status: mental status grossly normal Assessment and Plan Assessment and plan (1) Diverticulitis of large intestine with perforation without abscess or bleeding: Onset Date: ~02/2021 Code(s): K57.20 - Diverticulitis of large intestine with perforation and abscess without bleeding Status: Acute Assessment and Plan: colonoscopy, he is asymptomatic now
[2021-04-10 08:29] VITALS: BP 122/81; PULSE 92; RESP 17; O2SAT 98
[2021-04-10 08:39] VITALS: BP 133/92; PULSE 72; RESP 24; O2SAT 98
[2021-04-10 08:49] VITALS: BP 154/90; PULSE 68; RESP 24; O2SAT 99
== END 2021-04-10 09:02 | disposition home or self-care (01) ==
PROVIDERS: Visit Provider Internal Medicine Gastroenterology
PROC: 0DJD8ZZ Inspection of Lower Intestinal Tract, Via Natural or Artificial Opening Endoscopic (ICD-10-PCS; CPT 45378; principal; 2021-04-10 08:00)
DX: K57.30 Diverticulosis of large intestine without perforation or abscess without bleeding (principal); E66.9 Obesity, unspecified; K64.8 Other hemorrhoids; F17.290 Nicotine dependence, other tobacco product, uncomplicated
CPT/HCPCS: 45378; J2704; J7120

== ENCOUNTER 2022-05-10 04:14 | Emergency (ER) | payer OTHER, SELFPAY ==
--- NOTE | ~2022-05-10 | CT_ITS ---
EXAMINATION: CT abdomen pelvis w con DATE: 05/10/2022 05:48 INDICATION: Generalized abdominal pain. Nausea and vomiting. TECHNIQUE: Computed tomography (CT) of the abdomen and pelvis was performed with 100 mL Omnipaque 350 intravenous contrast. Automated exposure control and iterative reconstruction technique were employe d. The dose-length product was 1602.11 mGy-cm. COMPARISON: CT abdomen and pelvis 03/14/2021 FINDINGS: The visualized portions of the lung bases are clear without pneumonia or pleural effusion. The heart size is normal. No pericardial effusion. The liver, gallbladder, spleen, pancreas, adrenal glands, and kidneys are normal. There are scattered diverticula in the colon. There is fat stranding around a diverticulum of sigmoid colon, consistent with diverticulitis. The appendix is normal. There are no dilated loops of bowel. There are no pathologically enlarged lymph nodes. There is no free in traperitoneal fluid. There is moderate thoracolumbar spondylosis. IMPRESSION: 1. Mild acute sigmoid diverticulitis. No perforation or abscess. Reviewed, dictated and finalized at location A.
[2022-05-10 04:19] VITALS: BP 166/106; PULSE 86; RESP 18; TEMP 36.2; O2SAT 99
[2022-05-10 04:33] VITALS: BP 163/92; PULSE 80; RESP 16; O2SAT 98
[2022-05-10 04:48] LABS: Basophils Percent Auto 0.4 % (0.2-1.2); Eosinophils Absolute Auto 0.4 K/mm3 (0-0.3); Eosinophils Percent Auto 3.8 % (0-4.4); Hemoglobin 14.5 g/dL (14.0-18.0); Immature Granulocyte Absolute 0.04 K/mm3 (0.00-0.031); Immature Granulocyte Percent A 0.4 % (0-0.5); Lymphocytes Percent Auto 17.9 % (18.3-44.2); Mean Corpuscular Hemoglobin 28.3 pg (26-34); Mean Corpuscular Volume 85.8 fl (80-100); Mean Platelet Volume 10.4 fl (7.4-10.4); Monocytes Absolute Auto 0.6 K/mm3 (0.1-0.6); Monocytes Percent Auto 5.6 % (2.6-8.5); Neutrophils Absolute Auto 7.7 K/mm3 (1.3-6.7); Neutrophils Percent Auto 71.9 % (45.5-73.1); Platelet Count Result 241 k/mm3 (150-375); Red Blood Count 5.13 M/mm3 (4.6-6.20); White Blood Count 10.6 K/mm3 (4.5-10.0)
[2022-05-10] MEDS: SODIUM CHLORIDE 0.9% IV 1,000 ML 999 ML IV CONT (04:48)
[2022-05-10] MEDS: ONDANSETRON INJ 4 MG/2 ML VIAL IV PUSH (04:48)
--- NOTE | 2022-05-10 04:48 | ED.GENADULT ---
HPI - General Adult General Chief complaint: Abdominal Pain Stated complaint: abd pain Time Seen by Provider: 05/10/22 04:36 History of Present Illness HPI narrative: Patient 31-year-old gentleman who presents the emergency department with chief complaint of abdominal pain. The patient reports that this evening he started having multiple episodes of nausea and vomiting. The patient reports that he has a sour stomach and reports that he has pain in the epigastric and right upper quadrant region. The patient reports that has had no prior abdominal surgeries reports that he has no fever reports that he had some loose stool earlier today. The patient reports that he is had prior episode of diverticulitis in the past. Related Data Home Medications Medication Instructions Recorded Confirmed bupropion HCl 300 mg 24 hr tablet, mg PO 05/10/22 extended release calcitriol 0.25 mcg capsule mcg 05/10/22 dulaglutide 0.75 mg/0.5 mL mg subcut 05/10/22 subcutaneous pen injector (Trulicity) duloxetine 60 mg capsule,delayed mg PO 05/10/22 release losartan 25 mg tablet mg 05/10/22 Allergies Allergy/AdvReac Type Severity Reaction Status Date / Time No Known Allergies Allergy Verified 05/10/22 04:33 Review of Systems Review of Systems: A 10 system review of systems was completed on the patient and is negative except for what is stated in the HPI. Nursing and ancillary documentation was reviewed. [facility] Past Medical History Medical History Healthy adult male Leukocytosis LLQ pain Obesity (BMI 35.0-39.9 without comorbidity) Surgical History Surgical History No history of previous surgery Family History Family History Grandparent Diabetes mellitus Coronary artery disease involving coronary bypass graft Mother Hypertension Grandparent Bladder cancer Social History Social History Smoking status: Current every day smoker Tobacco type: e-cigarettes/vaping Second hand tobacco smoke exposure: Yes Additional smoking assessment comments: patient vapes Alcohol intake: current Substance use: never Substance use type: does not use Last use: rarely drinks alcohol Gender identity (if verbalized by the patient): Male Spiritual care concerns: No Exam Narrative: GENERAL: Well-appearing, well-nourished, and in no acute distress. HEAD: Normocephalic, atraumatic. EYES: PERRLA and EOMI. ENT: Nares clear, no rhinorrhea or epistaxis. Mucous membranes moist. NECK: Supple. CHEST: Clear to auscultation. No respiratory distress. HEART: Regular rate and rhythm. No murmur heard. Normal peripheral pulses. ABDOMEN: Soft, tenderness in the epigastric and right upper quadrant, nondistended, normal active bowel sounds. EXTREMITIES: Normal range of motion. No edema. SKIN: Warm, dry, no rash. NEURO: No focal deficits. Alert and oriented x3. PSYCH: Normal mood and affect. Course Course Emergency Course: CT scan showed acute uncomplicated diverticulitis. Patient was started on p.o. Augmentin and recommended to follow-up with his primary care provider Vital Signs Vital signs: Vital Signs Temperature 36.2 C L 05/10/22 04:19 Pulse Rate 86 05/10/22 04:19 Respiratory Rate 18 05/10/22 04:19 Blood Pressure 166/106 H 05/10/22 04:19 Pulse Oximetry 99 05/10/22 04:19 Temperature 36.2 C L 05/10/22 04:19 Pulse Rate 80 05/10/22 04:33 Respiratory Rate 16 05/10/22 04:33 Blood Pressure 163/92 H 05/10/22 04:33 Pulse Oximetry 98 05/10/22 04:33 Medical Decision Making Vital Signs Vital Signs: Vital Signs Temperature 36.2 C L 05/10/22 04:19 Pulse Rate 86 05/10/22 04:19 Respiratory Rate 18 05/10/22 04:19 Blood Pressure
[2022-05-10 04:57] LABS: Appearance Urine Turbid (Clear); Bilirubin Urine 1+ (Negative); Blood Urine Negative (Negative); Color Urine Yellow (Yellow); Glucose Urine UA Negative (Negative); Ketones Urine Negative (Negative); Leukocyte Esterase Ur Negative LEU/UL (Negative); Nitrate Urine Negative (Negative); Protein Urine 3+ mg/dL (Negative); Specific Grav Ur >= 1.030 (1.001-1.035); Urobilinogen Urine 0.2 mg/dL (<2.0)
[2022-05-10 04:58] LABS: Alanine Aminotransferase 30 U/L (6-50); Albumin Level 4.6 g/dL (3.5-5.1); Alkaline Phosphatase 72 U/L (38-126); Anion Gap 11 mmol/L (8-16); Aspartate Amino Transferase 26 U/L (17-59); Bilirubin,Total 0.5 mg/dL (0.2-1.3); Blood Urea Nitrogen 12 mg/dL (9-20); Calcium 8.9 mg/dL (8.4-10.2); Carbon Dioxide 26 mmol/L (22-30); Chloride 103 mmol/L (98-107); Estimated CRCL calculation 141 ml/min; Estimated Glomerular Filt Rate > 60; Glucose 118 mg/dL (65-110); Lipase 119 U/L (23-300); Mucus Urine Few /lpf; Potassium 4.1 mmol/L (3.4-5.0); RBC Urine 0-2 /hpf (0-2); Sodium 140 mmol/L (137-145); Squamous Epithelial Cell Urine Rare /hpf (Few); WBC Urine 0-3 /hpf
[2022-05-10 05:01] LABS: Add Urine Microscopic? YES
[2022-05-10] MEDS: MORPHINE SULFATE (*CRX) 4 MG/ML INJ IV PUSH (06:09)
[2022-05-10] MEDS: AMOXICILLIN/CLAVULANATE K 875-125 MG TAB 1 TABLET PO (06:48)
[2022-05-10 06:50] VITALS: BP 149/94; PULSE 70; RESP 16; O2SAT 96
== END 2022-05-10 06:51 | disposition home or self-care (01) ==
PROVIDERS: Emergency Provider Emergency Medicine; PCP Nurse Practitioner Family
DX: K57.32 Diverticulitis of large intestine without perforation or abscess without bleeding (principal); E66.9 Obesity, unspecified; Z68.42 Body mass index [BMI] 45.0-49.9, adult; F17.290 Nicotine dependence, other tobacco product, uncomplicated
CPT/HCPCS: 36415; 74177; 80053; 81001; 83690; 85025; 96361; 96374; 96375; 99284; A9270; J2270; J2405; J7030; Q9967

== ENCOUNTER 2022-06-06 17:27 | Emergency (ER) | payer OTHER, SELFPAY ==
[2022-06-06] VITALS (8 sets, daily range): BP systolic 124–160; BP diastolic 80–110; PULSE 89–95; RESP 17–20; TEMP 36.4–36.6; O2SAT 97–99
--- NOTE | ~2022-06-06 | CT_ITS ---
EXAMINATION: CT abdomen pelvis w con INDICATION: Nausea and vomiting TECHNIQUE: Computed tomographic images of the abdomen and pelvis were obtained after the administrati on of 100 cc of Omnipaque 350 intravenous contrast. The dose-length product (DLP) was 1570.82 mGy-cm. Automated exposure control and iterative reconstruction technique were employed. COMPARISON: 05/10/2022 FINDINGS: Minimal dependent atelectasis is present in the lung bases. The heart size is normal. The l iver, spleen, pancreas, gallbladder, and adrenal glands are normal. The kidneys are unremarkable. No pathologically enlarged abdominal or pelvic lymph nodes are identified. There is no free intraperiton eal gas or evidence of bowel obstruction. Colonic diverticulosis is again noted. There are subtle inf lammatory change adjacent to the sigmoid colon with slight interval improvement. There is moderate michael mbar spondylosis. The appendix is normal. IMPRESSION: 1. Sigmoid diverticulitis with slight interval improvement. Reviewed, dictated and finalized at location F.
[2022-06-06 17:58] LABS: Basophils Percent Auto 0.4 % (0.2-1.2); Eosinophils Absolute Auto 0.3 K/mm3 (0-0.3); Hematocrit 46.9 % (42.0-52.0); Hemoglobin 15.3 g/dL (14.0-18.0); Immature Granulocyte Absolute 0.03 K/mm3 (0.00-0.031); Immature Granulocyte Percent A 0.3 % (0-0.5); Lymphocytes Absolute Auto 1.49 K/mm3 (0.9-3.2); Lymphocytes Percent Auto 13.2 % (18.3-44.2); Mean Corpuscular HGB Conc 32.6 g/dl (32-36); Mean Corpuscular Hemoglobin 28.1 pg (26-34); Mean Corpuscular Volume 86.1 fl (80-100); Mean Platelet Volume 10.1 fl (7.4-10.4); Monocytes Absolute Auto 0.8 K/mm3 (0.1-0.6); Monocytes Percent Auto 6.9 % (2.6-8.5); Neutrophils Absolute Auto 8.6 K/mm3 (1.3-6.7); Neutrophils Percent Auto 76.2 % (45.5-73.1); Platelet Count Result 247 k/mm3 (150-375); Red Blood Count 5.45 M/mm3 (4.6-6.20); White Blood Count 11.3 K/mm3 (4.5-10.0)
[2022-06-06 18:13] LABS: Alanine Aminotransferase 34 U/L (6-50); Albumin Level 4.7 g/dL (3.5-5.1); Alkaline Phosphatase 70 U/L (38-126); Anion Gap 16 mmol/L (8-16); Aspartate Amino Transferase 24 U/L (17-59); Bilirubin,Total 0.7 mg/dL (0.2-1.3); Blood Urea Nitrogen 11 mg/dL (9-20); Carbon Dioxide 24 mmol/L (22-30); Chloride 102 mmol/L (98-107); Estimated CRCL calculation 138 ml/min; Estimated Glomerular Filt Rate > 60; Glucose 107 mg/dL (65-110); Lipase 122 U/L (23-300); Potassium 3.9 mmol/L (3.4-5.0); Sodium 142 mmol/L (137-145)
--- NOTE | 2022-06-06 19:49 | ED.NAVMDI ---
HPI - Nausea/Vomiting/Diarrhea General Chief complaint: Nausea/Vomiting/Diarrhea Stated complaint: NVD, hx of diverticulitis Time Seen by Provider: 06/06/22 19:36 History of Present Illness HPI Narrative: Patient is a 31-year-old male with a history of hypertension, diverticulitis presenting with abdominal pain and vomiting. Patient states that starting last night he developed discomfort in his epigastrium. States that he then began vomiting this morning. States he has had multiple episodes of diarrhea. States this feels similar to a prior episode of diverticulitis. Denies fevers or chills. Denies headache, chest pain, shortness of breath, cough, dysuria. Related Data Home Medications Medication Instructions Recorded Confirmed bupropion HCl 300 mg 24 hr tablet, mg PO 05/10/22 extended release calcitriol 0.25 mcg capsule mcg 05/10/22 dulaglutide 0.75 mg/0.5 mL mg subcut 05/10/22 subcutaneous pen injector (Trulicity) duloxetine 60 mg capsule,delayed mg PO 05/10/22 release losartan 25 mg tablet mg 05/10/22 Allergies Allergy/AdvReac Type Severity Reaction Status Date / Time No Known Allergies Allergy Verified 06/06/22 19:41 Review of Systems Review of Systems: All systems reviewed & are unremarkable except as noted in HPI and below PMFSH Past Medical History Medical History Healthy adult male Leukocytosis LLQ pain Obesity (BMI 35.0-39.9 without comorbidity) Surgical History Surgical History No history of previous surgery Family History Family History Grandparent Diabetes mellitus Coronary artery disease involving coronary bypass graft Mother Hypertension Grandparent Bladder cancer Social History Social History Smoking status: Current every day smoker Tobacco type: e-cigarettes/vaping Second hand tobacco smoke exposure: Yes Additional smoking assessment comments: patient vapes Alcohol intake: current Substance use: never Substance use type: does not use Last use: rarely drinks alcohol Gender identity (if verbalized by the patient): Male Spiritual care concerns: No Exam Narrative: GENERAL: Well-appearing, well-nourished, and in no acute distress. HEAD: Normocephalic, atraumatic. EYES: PERRLA and EOMI. ENT: Nares clear, no rhinorrhea or epistaxis. Mucous membranes moist. NECK: Supple. CHEST: Clear to auscultation. No respiratory distress. HEART: Regular rate and rhythm. No murmur heard. Normal peripheral pulses. ABDOMEN: Soft, TTP LLQ, normal active bowel sounds. EXTREMITIES: Normal range of motion. No edema. SKIN: Warm, dry, no rash. NEURO: No focal deficits. Alert and oriented x3. PSYCH: Normal mood and affect. Course Course Emergency Course: Patient is a 31-year-old male presenting with abdominal pain and vomiting. Patient is hypertensive, though his vitals are within normal limits. Exam is remarkable for left lower quadrant tenderness. Blood work with leukocytosis. Lipase is normal. CMP is unremarkable. CT abdomen pelvis shows mild colonic diverticulitis. On reevaluation, patient states he feels improved. Will send him home with augmentin and some Zofran. Advised to follow-up with PCP and GI. Appropriate return precautions given. Patient voiced understanding and is agreeable with plan. Discharged in stable condition. Vital Signs Vital signs: Vital Signs Temperature 97.9 F 06/06/22 17:47 Pulse Rate 95 06/06/22 17:47 Respiratory Rate 20 06/06/22 17:47 Blood Pressure 160/110 H 06/06/22 17:47 Pulse Oximetry 98 06/06/22 17:47 Oxygen Delivery Room Air 06/06/22 17:47 Temperature 97.6 F 06/06/22 19:38 Pulse Rate 89 06/06/22 21:04 Respiratory Rate 17 06/06/22 21:04 Blood Pressure 134/99
[2022-06-06] MEDS: FAMOTIDINE 20 MG/2 ML VIAL IV PUSH (19:57)
[2022-06-06] MEDS: ONDANSETRON INJ 4 MG/2 ML VIAL IV PUSH (19:57)
[2022-06-06] MEDS: SODIUM CHLORIDE 0.9% IV 1,000 ML 999 ML IV CONT (19:57)
--- NOTE | 2022-06-06 20:17 | PC.NURSE ---
Patient in CT at this time.
[2022-06-06 20:49] LABS: Add Urine Microscopic? YES; Appearance Urine Cloudy (Clear); Bilirubin Urine Negative (Negative); Blood Urine Negative (Negative); Color Urine Yellow (Yellow); Glucose Urine UA Negative (Negative); Ketones Urine Negative (Negative); Leukocyte Esterase Ur Negative LEU/UL (Negative); Mucus Urine Moderate /lpf; Nitrate Urine Negative (Negative); Protein Urine 2+ mg/dL (Negative); Squamous Epithelial Cell Urine Rare /hpf (Few); Urobilinogen Urine Negative mg/dL (<2.0); WBC Urine 0-3 /hpf
[2022-06-06 20:50] LABS: Specific Grav Ur 1.045 (1.001-1.035)
[2022-06-06] MEDS: AMOXICILLIN/CLAVULANATE K 875-125 MG TAB 1 TABLET PO (21:03)
== END 2022-06-06 21:18 | disposition home or self-care (01) ==
PROVIDERS: Emergency Medicine; Emergency Provider Emergency Medicine; PCP Nurse Practitioner Family
DX: K57.32 Diverticulitis of large intestine without perforation or abscess without bleeding (principal); I10 Essential (primary) hypertension; E66.9 Obesity, unspecified; Z68.42 Body mass index [BMI] 45.0-49.9, adult; F17.290 Nicotine dependence, other tobacco product, uncomplicated
CPT/HCPCS: 36415; 74177; 80053; 81001; 83690; 85025; 96361; 96374; 96375; 99284; A9270; J2405; J7030; Q9967

== ENCOUNTER 2023-01-11 14:12 | Emergency (ER) | payer BC, OTHER, SELFPAY ==
--- NOTE | ~2023-01-11 | CT_ITS ---
EXAMINATION: CT abdomen pelvis w con DATE: 01/11/2023 16:54 INDICATION: Nausea vomiting diarrhea, history of diverticuliti TECHNIQUE: Computed tomography (CT) of the abdomen and pelvis was performed with 100 mL Omnipaque-350 intravenous contrast. Automated exposure control and iterative reconstruction technique were employe d. The dose-length product was 1593.89 mGy-cm. COMPARISON: 06/06/2022, 05/10/2022. FINDINGS: Lower thorax: Unremarkable Liver: Normal. Biliary/Gallbladder: Gallbladder is normal. No bile duct dilation. Pancreas: No mass or duct dilation. Spleen: Normal. Adrenals:No mass. Kidneys: No mass, stone, or hydronephrosis. GI tract: No small or large bowel dilation. Normal appendix. Diverticulosis. Very minimal pericolonic stranding in the proximal sigmoid colon, no abscess or free air. Mesentery/Peritoneum: No ascites, mass, or free air. Retroperitoneum: No mass. Pelvis: Pelvic organs are within normal limits. Soft Tissues: Soft tissues and body wall unremarkable. Bones: No acute osseous finding. IMPRESSION: Minimal pericolonic stranding in the proximal sigmoid colon, in a region of previous diverticulitis, not significantly changed from the prior study, may represent mild recurrent diverticulitis in the ap propriate clinical context. Reviewed, dictated and finalized at location K. IMPRESSION: Minimal pericolonic stranding in the proximal sigmoid colon, in a region of pre vious diverticulitis, not significantly changed from the prior study, may repre sent mild recurrent diverticulitis in the appropriate clinical context.
[2023-01-11 15:10] VITALS: BP 148/99; PULSE 90; RESP 16; TEMP 36.9; O2SAT 96
[2023-01-11 16:14] LABS: Basophils Percent Auto 0.3 % (0.2-1.2); Eosinophils Absolute Auto 0.3 K/mm3 (0-0.3); Eosinophils Percent Auto 2.2 % (0-4.4); Hemoglobin 15.2 g/dL (14.0-18.0); Immature Granulocyte Absolute 0.07 K/mm3 (0.00-0.031); Immature Granulocyte Percent A 0.6 % (0-0.5); Lymphocytes Absolute Auto 1.56 K/mm3 (0.9-3.2); Lymphocytes Percent Auto 12.6 % (18.3-44.2); Mean Corpuscular Hemoglobin 28.2 pg (26-34); Mean Corpuscular Volume 85.3 fl (80-100); Mean Platelet Volume 9.6 fl (7.4-10.4); Monocytes Absolute Auto 0.8 K/mm3 (0.1-0.6); Monocytes Percent Auto 6.2 % (2.6-8.5); Neutrophils Absolute Auto 9.6 K/mm3 (1.3-6.7); Neutrophils Percent Auto 78.1 % (45.5-73.1); Platelet Count Result 269 k/mm3 (150-375); Red Blood Count 5.39 M/mm3 (4.6-6.20); Red Cell Distribution Width 14.4 % (11.5-14.5); White Blood Count 12.3 K/mm3 (4.5-10.0)
--- NOTE | 2023-01-11 16:20 | ED.ABDPAIN ---
HPI - Abdominal Pain General Chief Complaint: Abdominal Pain Stated Complaint: throwing up, abd pain Time Seen by Provider: 01/11/23 15:56 History of Present Illness HPI narrative: 32-year-old male history of diverticulitis presented to the ED for evaluation of nausea vomiting diarrhea. Patient reports that his symptoms started last night and have progressed to the day today. Patient initially denied any abdominal pain but did have some tenderness to palpation. Patient reports he has had multiple issues with diverticulitis previously. Patient denies having any prior abdominal surgeries. Related Data Home Medications Medication Instructions Recorded Confirmed bupropion HCl 300 mg 24 hr tablet, mg PO 05/10/22 07/23/22 extended release calcitriol 0.25 mcg capsule mcg 05/10/22 07/23/22 dulaglutide 0.75 mg/0.5 mL mg subcut 05/10/22 07/23/22 subcutaneous pen injector (Trulicity) duloxetine 60 mg capsule,delayed mg PO 05/10/22 07/23/22 release losartan 25 mg tablet mg 05/10/22 07/23/22 Allergies Allergy/AdvReac Type Severity Reaction Status Date / Time No Known Allergies Allergy Verified 01/11/23 16:06 Review of Systems Review of Systems: All systems reviewed & are unremarkable except as noted in HPI and below PMFSH Past Medical History Medical History (Updated 01/11/23 @ 17:40 by Ellis Elias MD) Diverticulitis large intestine Healthy adult male Hematochezia Leukocytosis LLQ pain Obesity (BMI 35.0-39.9 without comorbidity) Surgical History Surgical History No history of previous surgery Family History Family History Grandparent Diabetes mellitus Coronary artery disease involving coronary bypass graft Mother Hypertension Grandparent Bladder cancer Social History Social History Smoking status: Current every day smoker Tobacco type: e-cigarettes/vaping Second hand tobacco smoke exposure: Yes Additional smoking assessment comments: patient vapes Alcohol intake: current Substance use: never Substance use type: does not use Last use: rarely drinks alcohol Living arrangements: with family Gender identity (if verbalized by the patient): Male Spiritual care concerns: No Exam Narrative: APPEARANCE: Well appearing, no pain, no distress, well-nourished. HEAD: normocephalic, atraumatic. EYES: PERRLA/EOMI, conjunctivae clear. NOSE: Normal no drainage NECK: Supple. No adenopathy, no masses. RESPIRATORY: Airway patent, respirations nonlabored. Clear to auscultation bilaterally, no rales, rhonchi, wheezing. CARDIOVASCULAR: Regular rate and rhythm without murmurs rubs or gallops. ABDOMINAL: Soft, left lower quadrant and suprapubic tenderness to palpation MUSCULOSKELETAL: Moves all extremities. Strength/ROM intact, No edema, No calf tenderness. NEURO: Alert. Cranial nerves II through XII intact. Grossly intact SKIN: Warm, dry. Normal Color Course Course Emergency Course: 32-year-old male presented to ED for evaluation of nausea vomiting diarrhea. Patient did have some lower abdominal tenderness to palpation so CT abdomen pelvis with contrast being ordered to evaluate for diverticulitis. Patient was afebrile but does have a leukocytosis of 12.3. Patient was provided medications for nausea control and IV fluids. Patient was updated on the plan for imaging. All questions and concerns were addressed. Patient is being discharged on Cipro and Flagyl for concern for underlying diverticulitis. Patient was updated on the results of the CT scan. Patient was also encouraged on close follow-up with GI. All questions concerns were addressed and patient was comfortable with the plan for discharge and close follow-up. Vital Signs Vital signs: Vital Signs Temperature 98.4 F 01/11/23 15:10 Pulse Rate
[2023-01-11 16:21] LABS: Appearance Urine Clear (Clear); Bacteria Urine None Seen /hpf; Bilirubin Urine Negative (Negative); Blood Urine Negative (Negative); Color Urine Dark Yellow (Yellow); Glucose Urine UA Negative (Negative); Ketones Urine Trace mg/dL (Negative); Leukocyte Esterase Ur Negative LEU/UL (Negative); Nitrate Urine Negative (Negative); Non Pathogenic Casts 0-2; Protein Urine 3+ mg/dL (Negative); RBC Urine 0-2 /hpf (0-2); Specific Grav Ur 1.027 (1.001-1.035); Squamous Epithelial Cell Urine Occasional /hpf (Few); Urobilinogen Urine 0.2 mg/dL (<2.0); WBC Urine 0-5 /hpf; pH Urine 5.5 (5.0-9.0)
[2023-01-11 16:25] LABS: Alanine Aminotransferase 45 U/L (6-50); Albumin Level 4.8 g/dL (3.5-5.1); Alkaline Phosphatase 71 U/L (38-126); Anion Gap 8 mmol/L (8-16); Aspartate Amino Transferase 26 U/L (17-59); Bilirubin,Total 0.8 mg/dL (0.2-1.3); Blood Urea Nitrogen 15 mg/dL (9-20); Calcium 8.7 mg/dL (8.4-10.2); Carbon Dioxide 28 mmol/L (22-30); Chloride 102 mmol/L (98-107); Estimated CRCL calculation 113 ml/min; Estimated Glomerular Filt Rate > 60; Glucose 95 mg/dL (65-110); Lipase 95 U/L (23-300); Potassium 4.2 mmol/L (3.4-5.0); Sodium 138 mmol/L (137-145)
[2023-01-11] MEDS: SODIUM CHLORIDE 0.9% IV 1,000 ML 999 ML IV CONT (16:26)
[2023-01-11] MEDS: ONDANSETRON INJ 4 MG/2 ML VIAL IV PUSH (16:26)
[2023-01-11 16:27] LABS: Add Urine Microscopic? YES
[2023-01-11] MEDS: metroNIDAZOLE 500 MG/ISO 100ML 500 MG/100 ML BAG 100 MG IVPB (17:23)
[2023-01-11] MEDS: CIPROFLOXACIN 400 MG/D5W 200ML 200 ML 200 MG IVPB (17:24)
== END 2023-01-11 18:33 | disposition home or self-care (01) ==
PROVIDERS: Emergency Provider Emergency Medicine; PCP Nurse Practitioner Family
DX: K57.32 Diverticulitis of large intestine without perforation or abscess without bleeding (principal); E66.9 Obesity, unspecified; Z68.42 Body mass index [BMI] 45.0-49.9, adult; F17.290 Nicotine dependence, other tobacco product, uncomplicated
CPT/HCPCS: 36415; 74177; 80053; 81001; 83690; 85025; 96361; 96365; 96368; 96375; 99284; J0744; J2405; J7030; Q9967

== ENCOUNTER 2024-10-25 00:12 | Emergency (ER) | payer OTHER, SELFPAY ==
--- NOTE | ~2024-10-25 | CT_ITS ---
CT of the Abdomen and Pelvis: Indication: Abdominal pain Technique: 2.5 mm axial scans were obtained through the abdomen and pelvis following intravenous adm inistration of 100 cc of Omnipaque 350. Dose reduction technique was used on this scan by utilizing a utomated exposure control and iterative reconstruction technique. The dose-length product (DLP) was 1 962.42 mGy-cm. COMPARISON: 01/11/2023 Findings: Scans through the lung bases are unremarkable. The liver, spleen, pancreas, gallbladder, adrenals and kidneys are within normal limits. No evidence of aortic aneurysm. No lymphadenopathy. There is focal inflammatory change about diverticulum at the proximal sigmoid colon, compatible with mild acute diverticulitis. No abscess or free air. No bowel obstruction. Images through the pelvis were performed. Urinary bladder unremarkable. No pelvic mass seen. No ascit es. Impression: Mild acute diverticulitis of the proximal sigmoid colon. No bowel obstruction. No abscess or free air . Reviewed, dictated and finalized at location . Impression: Mild acute diverticulitis of the proximal sigmoid colon. No bowel obstruction. No abscess or free air.
[2024-10-25 00:13] VITALS: BP 166/122; PULSE 93; RESP 16; TEMP 36.7; O2SAT 97
--- OUTSIDE RECORDS SUMMARY | 2024-10-25 00:13 | XMS_ITS ---
Author Organization [facility] Address [address] [place] [address] Care Team Providers Care Smart Energy Specialist Name Role Phone Cecelia Agee Primary Care Provider REASON FOR VISIT Shilo DONALDSON Social History Sex Assigned At : Social History Observation Description Sex Assigned At Male Encounters Encounter Location Date Provider Diagnosis [address] [place] [address] 10/22/2024 Cecelia Agee Plan Of Treatment No Information Progress Notes * KEZIAOscar FUNKDOB: 0 (34 yo M)Acc No.[id number]:10/22/2024 UNLOCKED PROGRESS NOTE Patient: Oscar COPELAND :1990 A ge:34 Y S ex:Male [address] [place] [address] * * Date:
--- OUTSIDE RECORDS SUMMARY | 2024-10-25 00:13 | XMS_ITS | Referral Summary ---
Author Organization [facility] Address [address] [place] [address] Care Team Providers Care Excel Specialist Name Role Phone Unavailable Primary Care Provider Unavailabl e Source Comments [facility],non-owned Affiliates and Associated Physician Practices is amultiple site organization consisting of ambulatory clinics and hospital sitesin [place], [place], [place] and [place]. This disclosure is being madepursuant to the Care Everywhere program and may not contain all information available regarding this patient. Last updated 18.[facility] Social History Tobacco Use Types Packs/Day Years Used Date Smoking Tobacco: Never Assessed Sex and Gender Information Value Date Recorded Sex Assigned at Not on file Gender Identity Not on file Sexual Orientation Not on file Last Filed Vital Signs Vital Sign Reading Time Taken Comments Blood Pressure 133/67 07/31/2016 7:32 AM BLOOD BANK SUPERVISOR Pulse 91 07/31/2016 7:32 AM BLOOD BANK SUPERVISOR Temperature 37 C (98.6 F) 07/31/2016 7:32 AM BLOOD BANK SUPERVISOR Respiratory Rate 18 07/31/2016 7:32 AM BLOOD BANK SUPERVISOR Oxygen Saturation 98% 07/31/2016 7:32 AM BLOOD BANK SUPERVISOR Inhaled Oxygen Concentration - - Weight 129.3 kg (285 lb) 07/31/2016 7:32 AM BLOOD BANK SUPERVISOR Height 170.2 cm (5' 7 ) 07/31/2016 7:32 AM BLOOD BANK SUPERVISOR Body Mass Index 44.64 07/31/2016 7:32 AM BLOOD BANK SUPERVISOR Plan of Treatment Not on file
--- OUTSIDE RECORDS SUMMARY | 2024-10-25 00:14 | XMS_ITS | Patient Health Record ---
Author Organization [facility] Address [address] [place] [address] Care Team Providers Care Licensed Practical Nurse Clinic Nurse Name Role Phone Cecelia Agee Primary Care Provider Allergies No Known Allergies Results Component Value Reference Range Notes 12 Panel Urine Drug Screen Reviewed date:10/22/2024 10:15:49 AM Interpretation: Performing Lab: Notes/Report: THC pos ANITHA neg MOP (OPI) neg AMP neg MET neg BAR neg BZO neg MDMA neg MTD neg OXY neg PCP neg BUP neg Reason For Referral No Information Medications Medication SIG (Take, Route, Frequency, Duration) Notes Start Date End Date Status DULoxetine HCl 40 MG TAKE 1 CAPSULE BY M OUTH EVERY DAY FOR 30 DAYS for 90 days Active Vyvanse 30 MG 1 capsule in the morning Orally Once a day for 30 days 10/22/2024 Active buPROPion HCl ER (XL) 150 MG 1 tablet in the morning Orally Once a day for 30 days Active Ozempic once a week Active DULoxetine HCl 40 MG 1 capsule Orally On ce a day for 30 days Active buPROPion HCl ER (XL) 150 MG TAKE 1 TABLET BY MOUTH EVERY DAY AT MORNING TIME for 90 days Active Social History Tobacco Use: Social History Observation Description Date Details (start date - stop date) Unknown Sex Assigned At : Social History Observation Description Sex Assigned At Male Tobacco Control (Standard) Question Answer Notes Tobacco use: Uses tobacco in other forms Additional Findings: Tobacco user e-cigarette Problems Problem Type SNOMED Code ICD Code Onset Dates Problem Status W/U Status Risk Notes Problem Generalized anxiety disorder (18171896) Generalized anxiety disorder (F41.1) Active confirmed Problem Major depression (348063797) Major depression (F32.9) Active confirmed Problem Obese (759487841) Obese (E66.9) Active confirme d Problem Attention deficit hyperactivity disorder (207291545) Adult ADHD (F90.9) Active confirmed Vital Signs Heart Rate 92 /min 10/22/2024 Temperature 98.5 degrees Fahrenheit 10/22/2024 Respiratory Rate 16 /min 10/22/2024 Oximetry 98 % 10/22/2024 Blood pressure diastolic 98 mm Hg 10/22/2024 Height 67 in in 10/22/2024 Blood pressure systolic 128 mm Hg 10/22/2024 Weight 320 lbs lbs 10/22/2024 BMI 50.11 kg/m2 10/22/2024 Encounters Encounter Location Date Provider Diagnosis [address] [facility] [place] [address] 11/02/2023 Cecelia Agee Generalized anxiety disorder F41.1 ; Major depression F32.9 ; Adult ADHD F90.9 ; Obese E66.9 and Medication monitoring encounter Z51.[address] [place] [address] 09/04/2024 Cecelia Agee Generalized anxiety disorder F41.1 ; Major depression F32.9 ; Adult ADHD F90.9 ; Obese E66.9 and Medication monitoring encounter Z51.[address] [place] [address] 10/22/2024 Cecelia Agee Nutritional counseling Z71.3 ; Generalized anxiety disorder F41.1 ; Major depression F32.9 ; Adult ADHD F90.9 ; Obese E66.9 and Medication monitoring encounter Z51.[address] [place] [address] 10/22/2024 Cecelia Agee [facility] [address] [place] [address] 10/31/2023 Cecelia Medelnnan [address] [place] [address] 09/04/2024 Cecelia Agee [address] [place] [address] 10/30/2023 Cecelia Agee [address] [place] [address] 11/01/2023 Cecelia Agee Adult ADHD F90.9 Assessments Encounter Date Diagnosis (ICD Code) Assessment Notes Treatment Notes Treatment Clinical Notes Section Notes 11/01/2023 Adult ADHD (ICD-10 - F90.9) 11/02/2023 Generalized anxiety disorder (ICD-10 - F41.1) 09/04/2024 Generalized anxiety disorder (ICD-10 - F41.1) 10/22/2024 Nutritional counseling (ICD-10 - Z71.3) 10/22/2024 Generalized anxiety disorder (ICD-10 - F41.1) 09/04/2024 Major depression (ICD-10 - F32.9) Client restarting medications as he reports not being able to function well without them. Reports depression, anxiety, and poor attention. Client was on Cymbalta 120mg, Bupropion XL 300mg, and Vyvanse 40mg. Client was doing well on these medications without SE. Restarting and will plan to titrate up if/as needed. PDMP checked without concerns. 11/02/2023 Major depression (ICD-10 - F32.9) Lancing agreement to continue current regimen as client reports doing well. 11/02/2023 Adult ADHD (ICD-10 - F90.9) Discussed r/b/se. 10/22/2024 Major depression (ICD-10 - F32.9) Client restarting medications as he reports not being able to function well without them. Reports depression, anxiety, and poor attention. Client was on Cymbalta 120mg, Bupropion XL 300mg, and Vyvanse 40mg. Client was doing well on these medications without SE. Restarting and will plan to titrate up if/as needed. PDMP checked without concerns. 09/04/2024 Adult ADHD (ICD-10 - F90.9) Stimulant education - reviewed risks including HTN, cardiac arrhythmias, sudden , stroke, seizures, clint, wt loss, insomnia, and harm. Strongly encouraged client to resume his CPAP at night. 09/04/2024 Obese (ICD-10 - E66.9) Encouraged healthy diet, exercise. Continue Ozempic. 10/22/2024 Adult ADHD (ICD-10 - F90.9) Stimulant education - reviewed risks including HTN, cardiac arrhythmias, sudden , stroke, seizures, clint, wt loss, insomnia, and harm. Client has tried Strattera, is not wanting to try Adderall due to addiction potential, started on Vyvanse and doing well. 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 PDMP checked without concerns. 11/02/2023 Obese (ICD-10 - E66.9) Encouraged healthy diet, exercise. 09/04/2024 Medication monitoring encounter (ICD-10 - Z51.81) 11/02/2023 Medication monitoring encounter (ICD-10 - Z51.81) 10/22/2024 Obese (ICD-10 - E66.9) Encouraged healthy diet, exercise. Continue Ozempic. 10/22/2024 Medication monitoring encounter (ICD-10 - Z51.81) 11/02/2023 Other Reasons, potential benefits, potential risks, interactions and side effects of all medications were discussed. The Patient/Guardian asked appropriate questions, appeared to understand the answers, and decided to accept the treatment and continue being followed. Alternatives and expected course without treatment were reviewed. The Patient/Guardian is aware of the need to contact the office or return for an earlier appointment if any problems or concerns arise. May also contact the 24-hour crisis hotline ([facility]), refer to the closest emergency room or call 911 if new symptoms arise of existing symptoms worsen. The Patient/Guardian is aware that this would apply to symptoms like: suicidal ideation, homicidal ideation, high risk behaviors, manic symptoms, psychotic symptoms, physical symptoms, or any other symptoms that may be dangerous to self or others. Greater than 50% of time spent on coordination and counseling where psychopharmacology as well as psychotherapeutic interventions were discussed along with review of treatments in the past. Education provided concerning need for adequate hydration. Patient/Guardian verbalized understanding of education, treatment plan and follow up. This session was completed telephonically with client/parental/guard greta consent: Unable to determine movement status, assess appearance, affect, AIMS, or vital signs. 09/04/2024 Other Reasons, potential benefits, potential risks, interactions and side effects of all medications were discussed. The Patient/Guardian asked appropriate questions, appeared to understand the answers, and decided to accept the treatment and continue being followed. Alternatives and expected course without treatment were reviewed. The Patient/Guardian is aware of the need to contact the office or return for an earlier appointment if any problems or concerns arise. May also contact the 24-hour crisis hotline ([facility]), refer to the closest emergency room or call 911 if new symptoms arise of existing symptoms worsen. The Patient/Guardian is aware that this would apply to symptoms like: suicidal ideation, homicidal ideation, high risk behaviors, manic symptoms, psychotic symptoms, physical symptoms, or any other symptoms that may be dangerous to self or others. Greater than 50% of time spent on coordination and counseling where psychopharmacology as well as psychotherapeutic interventions were discussed along with review of treatments in the past. Education provided concerning need for adequate hydration. Patient/Guardian verbalized understanding of education, treatment plan and follow up. This session was completed telephonically with client/parental/guard greta consent: Unable to determine movement status, assess appearance, affect, AIMS, or vital signs. 10/22/2024 Other Reasons, potential benefits, potential risks, interactions and side effects of all medications were discussed. The Patient/Guardian asked appropriate questions, appeared to understand the answers, and decided to accept the treatment and continue being followed. Alternatives and expected course without treatment were reviewed. The Patient/Guardian is aware of the need to contact the office or return for an earlier appointment if any problems or concerns arise. May also contact the 24-hour crisis hotline ([facility]), refer to the closest emergency room or call 911 if new symptoms arise of existing symptoms worsen. The Patient/Guardian is aware that this would apply to symptoms like: suicidal ideation, homicidal ideation, high risk behaviors, manic symptoms, psychotic symptoms, physical symptoms, or any other symptoms that may be dangerous to self or others. Greater than 50% of time spent on coordination and counseling where psychopharmacology as well as psychotherapeutic interventions were discussed along with review of treatments in the past. Education provided concerning need for adequate hydration. Patient/Guardian verbalized understanding of education, treatment plan and follow up. Plan Of Treatment No Information Insurance Providers Payer Name Payer Address Payer Phone Subscriber Number Group Number Insured Name Patient Relationship to Insured Coverage Start Date Coverage End Date [facility] Att[facility] Claims Department [address] [place] [address] [phone] [id number] Oscar Kebede Self - patient is the insured 3 [facility] [address] [place] [address] [phone] [id number] Oscar Kebede Self - patient is the insured 3 4 Medical (General) History Medical History History ICD Code sleep apnea Hospitalization History Reason Date(Month/Year) sleep study diverticulitis 2020
--- OUTSIDE RECORDS SUMMARY | 2024-10-25 00:14 | XMS_ITS | CONTINUITY OF CARE DOCUMENT ---
Author Name rose rose Address Unknown Organization [facility] Address [address] [place] [address] Phone [phone] Care Team Providers Care Furnace Operator And Tender Name Role Phone Nando PUGH, Diego Unavailable EMERITA AUGUST Unavailable [phone] EMERITA AUGUST Unavailable [phone] INSURANCE PROVIDERS Payer name Policy type / Coverage type [place] red democr[id number] MEDICAID (2) Medicaid [id number]
--- OUTSIDE RECORDS SUMMARY | 2024-10-25 00:14 | XMS_ITS ---
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 Name Role Phone Cecelia Agee Primary Care Provider REASON FOR VISIT 4 week F/U Medications Medication SIG (Take, Route, Frequency, Duration) Notes Start Date End Date Status DULoxetine HCl 40 MG TAKE 1 CAPSULE BY M OUTH EVERY DAY FOR 30 DAYS for 90 days Active Vyvanse 30 MG 1 capsule in the morning Orally Once a day for 30 days 10/22/2024 Active Ozempic once a week Active DULoxetine HCl 40 MG 1 capsule Orally On ce a day for 30 days Active buPROPion HCl ER (XL) 150 MG TAKE 1 TABLET BY MOUTH EVERY DAY AT MORNING TIME for 90 days Active buPROPion HCl ER (XL) 150 MG 1 tablet in the morning Orally Once a day for 30 days Active Social History Sex Assigned At : Social History Observation Description Sex Assigned At Male Vital Signs Weight 320 lbs lbs 10/22/2024 Height 67 in in 10/22/2024 BMI 50.11 kg/m2 10/22/2024 Blood pressure systolic 128 mm Hg 10/23/19 25 Blood pressure diastolic 98 mm Hg 025 Heart Rate 92 /min 10/22/2024 Oximetry 98 % 10/22/2024 Temperature 98.5 degrees Fahrenheit 10/23/19 25 Respiratory Rate 16 /min 10/22/2024 Encounters Encounter Location Date Provider Diagnosis [address] [place] [address] 10/22/2024 Cecelia Agee Nutritional counseling Z71.3 ; Generalized anxiety disorder F41.1 ; Major depression F32.9 ; Adult ADHD F90.9 ; Obese E66.9 and Medication monitoring encounter Z51.81 Assessments Encounter Date Diagnosis (ICD Code) Assessment Notes Treatment Notes Treatment Clinical Notes Section Notes 10/22/2024 Nutritional counseling (ICD-10 - Z71.3) 10/22/2024 Generalized anxiety disorder (ICD-10 - F41.1) 10/22/2024 Major depression (ICD-10 - F32.9) Client restarting medications as he reports not being able to function well without them. Reports depression, anxiety, and poor attention. Client was on Cymbalta 120mg, Bupropion XL 300mg, and Vyvanse 40mg. Client was doing well on these medications without SE. Restarting and will plan to titrate up if/as needed. PDMP checked without concerns. 10/22/2024 Adult ADHD (ICD-10 - F90.9) Stimulant education - reviewed risks including HTN, cardiac arrhythmias, sudden , stroke, seizures, clint, wt loss, insomnia, and harm. Client has tried Strattera, is not wanting to try Adderall due to addiction potential, started on Vyvanse and doing well. 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 PDMP checked without concerns. 10/22/2024 Obese (ICD-10 - E66.9) Encouraged healthy diet, exercise. Continue Ozempic. 10/22/2024 Medication monitoring encounter (ICD-10 - Z51.81) 10/22/2024 Other Reasons, potential benefits, potential risks, [...] May also contact the 24-hour crisis hotline (R), refer to the closest emergency room or [...] plan and follow up. Plan Of Treatment Medication Medication Name Sig Start Date Stop Date Notes Vyvanse 30 MG 1 capsule in the mor camilo Orally Once a day for 30 days 10/22/2024 DULoxetine HCl 40 MG 1 capsule Orally On ce a day for 30 days buPROPion HCl ER (XL) 150 MG 1 tablet in the morning Orally Once a day for 30 days Treatment Notes Assessment Notes Major depression Client restarting medications as he reports not being able to function well without them. Reports depression, anxiety, and poor attention. Client was on Cymbalta 120mg, Bupropion XL 300mg, and Vyvanse 40mg. Client was doing well on these medications without SE. Restarting and will plan to titrate up if/as needed. PDMP checked without concerns. Adult ADHD Stimulant education - reviewed risks including HTN, cardiac arrhythmias, sudden , stroke, seizures, clint, wt loss, insomnia, and harm. Client has tried Strattera, is not wanting to try Adderall due to addiction potential, started on Vyvanse and doing well. 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 PDMP checked without concerns. Obese Encouraged healthy diet, exercise. Continue Ozempic. Other Reasons, potential benefits, potential risks, interactions [...] May also contact the 24-hour crisis hotline (R), refer to the closest emergency room or [...] of education, treatment plan and follow up. Next Appt Details Follow Up: 3 Months, Reason: Psych F/U in-office Progress Notes * Oscar CLEARYDOB: 0 (34 yo M)Acc No.[id number]:10/22/2024 Patient: Oscar COPELAND Provider: Radha Agee, MSN, ASSISTANT PROFESSOR, AUCTION CLERK-C :1990 A ge:34 Y S ex:Male Date:10/22/2024 Address:[address] [place], [place] [id number] Subjective: * Chief Complaints: * 4 week F/U * HPI: S creening: Jackman Suicide Severity Rating Scale (LF) D o you want to initiate with S creener form, 1 . Wish to be : Have you wished you were or wished you could go to sleep and not wake up? N o, 2 . Suicidal Thoughts: Have you actually had any thoughts of killing yourself? N o, 6 . Suicide Behavior Question: Have you ever done anything,started to do anything, or prepared to end your life? N o, I nterpretation: L ow Risk. C SSRS Interpretation and Follow Up Plan: CSSRS Interpretation and Follow Up Plan C SSRS Screen documented using SF Y es, R isk Disposition from SF L ow - No Follow Up Plan Required, F ollow Up Plan N o Follow Up Plan required at this time.. D epression Screening: PHQ-9 L ittle interest or pleasure in doing things N ot at all, F eeling down, depressed, or hopeless N ot at all, T rouble falling or staying asleep, or sleeping too much N ot at all, F eeling tired or having little energy N ot at all, P oor appetite or overeating N ot at all, F eeling bad about yourself or that you are a failure, or have let yourself or your family down N ot at all, T rouble concentrating on things, such as reading the newspaper or watching television S everal days, M oving or speaking so slowly that other people could have noticed; or the opposite, being so fidgety or restless that you have been moving around a lot more than usual N ot at all, T houghts that you would be better off or of hurting yourself in some way N ot at all, T otal Score 1 ,?Interpretation M inimal Depression. M ood Disorder Questionnaire 02-03-22: Please answer each question to the best of your ability. Questions P lease answer each question to the best of your ability. H as there ever been a time period when you were not your usual self and..., Y ou felt so good or hyper that other people thought you were not your normal self or you were so hyper that you got into trouble? Y es ., Y ou were so irritable that you shouted at people or started fights or arguments? N o ., Y ou got much less sleep than usual and found that you didn't really miss it? Y es ., Y ou felt much more self-confident than usual? N o ., Y ou were more talkative or spoke much faster than usual? N o ., T houghts raced through your head or you couldn't slow your mind down? N o ., Y ou were so easily distracted by things around you that you had trouble concentrating or staying on track? Y es ., Y ou had more energy than usual? Y es ., Y ou were more active or did many more things than usual? Y es ., Y ou were more social or outgoing than usual, for example, you telephoned friends in the middle of the night? N o ., Y ou were more interested in sex than usual? N o ., Y ou did things that were usual for you or that other people might have thought were excessive, foolish, or risky??No ., S pending money got you or your family in trouble? N o ., I f you checked YES to more than one of the above, have several of these ever happened during the same period of time??Yes ., H ow much of a problem did any of these cause you - like being unable to work; having family, money or legal troubles; getting into arguments or fights? N o problems .. P sychiatric Assessment - Current Symptoms: How ct. doing today? Client is a 34 yo M in-office today reporting he has been doing well. Back on medications for 2 months now. Definitely doing better. States has been working on vaping less. Reports taking medications well. Denies SE. States they are helpful. 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 Reports going to [facility] night program. Social: Help at home for work, just got a car and working on insurance. Reports family is doing well. Depression: Denies Anxiety: A little, like when I am driving. Anger/irritability: Denies Sleep: Decent Appetite: Low with the Ozempic. Drinking protein shakes. Hallucinations/paranoia: Denies Drugs/ETOH: Denies Therapy: Denies, not currently Denies SI/HI. Medical: Working to get PCP. * ROS: P sych ROS: Constitutional D enies. E yes D enies. E ars/Nose/Mouth/Throat R eports, s leep apnea. R espiratory D enies. A llergic/Immunologic D enies. C ardiovascular R eports, H TN,Hyperlipidemia. G I D enies. G U D enies. M usculoskeletal D enies. N eurological Denies. I ntegumentary D enies. E ndocrine D enies. H ematological/Lymphatic?Denies. P sych D enies SI/HI/AH/VH. * Medical History: * Surgical History: N o Surgical History documented. * Hospitalization/Major Diagno stic Procedure: d iverticulitis le study * Family History: F ather: unknown. M other: alive, diagnosed with Unspecified essential hypertension. 1 brother(s) , 1 sister(s) - healthy. 1 son(s) - healthy. . * Social History: P rimary Social History: L iving Arrangement L iving Arrangement: I ndependent Living and son, I s this a supportive environment? Y es. A lcohol Use A lcohol Use Frequency: M onthly or less. I llicit Substance Usage I llicit Substance Usage: N o. E mployment Status E mployment Status: E mployed [employer]. * Medications: T akingOzempic , Notes to Pharmacist: once a weekVyvanse 30 MG Capsule 1 capsule in the morning Orally Once a day buPROPion HCl ER (XL) 150 MG Tablet Extended Release 24 Hour TAKE 1 TABLET BY MOUTH EVERY DAY AT MORNING TIME DULoxetine HCl 40 MG Capsule Delayed Release Particles TAKE 1 CAPSULE BY MOUTH EVERY DAY FOR 30 DAYS Medication List reviewed and reconciled with the patientTaking Irma , Notes to Pharmacist: once a weekTaking Vyvanse 30 MG Capsule 1 capsule in the morning Orally Once a day Taking buPROPion HCl ER (XL) 150 MG Tablet Extended Release 24 Hour TAKE 1 TABLET BY MOUTH EVERY DAY AT MORNING TIME Taking DULoxetine HCl 40 MG Capsule Delayed Release Particles TAKE 1 CAPSULE BY MOUTH EVERY DAY FOR 30 DAYS Medication List reviewed and reconciled with the patient * Allergies: n o[Allergies Verified] Objective: * Vitals: I nitials: sle, Wt:320 lbs, Ht: 67 in, BMI:50.11, BP:128/98, HR:92, Oxygen sat %:98, Temp:98.5, RR:16, Pain scale:0. * Examination: M ental Status Exam: SENSORIUM AND COGNITION Alert, Oriented to Person, Oriented to Place, Oriented to Time, Oriented to Situation. ATTENTION AND CONCENTRATION I mpaired attention/concentration. APPEARANCE A ppropriate. ATTITUDE AND BEHAVIOR Cooperative, Receptive. MEMORY Immediate, Recent, Remote. EYE CONTACT G ood. AFFECT B road/Full. MOOD Euthymic. SPEECH QUANTITY Appropriate. SPEECH QUALITY Appropriate volume. THOUGHT PROCESS Coherent and goal directed. THOUGHT CONTENT Appropriate - WNL. MOTOR ACTIVITY N ormal gait, No abnormal movements or tics noted. SUICIDAL IDEATION Denies suicidal ideation. HOMICIDAL IDEATION Denies homicidal ideation. HALLUCINATIONS Denies hallucinations. INSIGHT G ood. JUDGMENT G ood. FUND OF KNOWLEDGE G ood. ABILITY TO PARTICIPATE IN TREATMENT M oderate. WILLINGNESS TO PARTICIPATE IN TREATMENT H igh. ? Assessment: * Assessment: 1. N utritional counseling - Z71.3 2 . G eneralized anxiety disorder - F41.1 3 . M ajor depression - F32.9 (Primary) 4 . A dult ADHD - F90.9 5 . O bese - E66.9 6 . M edication monitoring encounter - Z51.81 Plan: * Treatment: 2. G eneralized anxiety disorder Refill DULoxetine HCl Capsule Delayed Release Particles, 40 MG, 1 capsule Orally Once a day, 30 days, 30 Capsule, Refills 2. 3. A dult ADHD Refill Vyvanse Capsule, 30 MG, 1 capsule in the morning, Orally, Once a day, 30 days, 30 Capsule, Refills 0. L AB: 12 Panel Urine Drug Screen (Ordered for 10/22/2024) (Collection Date & Time - 10/22/2024 10:14 AM) Value Reference Range T HC pos * C OC neg * M OP (OPI) neg * A MP neg * M ET neg * B AR neg * B ZO neg * M DMA neg * M TD neg * O XY neg * P CP neg * B UP neg Notes: Stimulant education - reviewed risks including HTN, cardiac arrhythmias, sudden , stroke, seizures, clint, wt loss, insomnia, and harm. Client has tried Strattera, is not wanting to try Adderall due to addiction potential, started on Vyvanse and doing well. 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 PDMP checked without concerns.??4.?Obese? Notes: Encouraged healthy diet, exercise. Continue Ozempic.??5.?Others? Notes: Reasons, potential benefits, potential risks, interactions and [...] or concerns arise. May also contact the 24- hour crisis hotline (R), [facility] or call 911 if new [...] understanding of education, treatment plan and follow up.?? * Recommended Wellness and Pre vention Guidelines: * S tatus A lert L ast Done N ext Due A ction Taken N ONCOMPLIANT A lcohol use screening - 0 10/22/2024 - N ONCOMPLIANT D epression followup 0 09/04/2024 0 10/22/2024 - N ONCOMPLIANT H IV screening - 0 10/22/2024 - N ONCOMPLIANT I nfluenza vaccine (high risk) - 0 10/22/2024 - N ONCOMPLIANT T etanus - 0 10/22/2024 - N ONCOMPLIANT T etanus and Pertussi - 0 10/22/2024 - * Procedure Codes: 3 008F BODY MASS INDEX [id number] MEDICAL NUTRITION, INDIV, [id number] TOBACCO NON-USER * Preventive Medicine: Counseling: C are goal follow-up plan: B NE management provided Birdie huffman, Nataly nagy Normal BMI Follow-up L ifestyle education regarding diet. * Follow Up: 3 Months (Reason: Psych F/U in-office) * * Sign off status: Completed true * Provider: Radha Agee, MSN, ASSISTANT PROFESSOR, AUCTION CLERK-C Date: 0 10/22/2024 Generated for [employer]/Brian/Lorraineransmitting on: 0 10/25/2024 12:14 AM CDT History and Physical Notes * HPI (History of Present Illness) Category Sub-Category Detail Notes Category Not es Depression Screening PHQ-9 Little inte rest or pleasure in doing things: Not at all Feeling down, depressed, or hopeless: No t at all Trouble falling or staying asleep, or sl eeping too much: Not at all Feeling tired or having little energy: N ot at all Poor appetite or overeating: Not at all Feeling bad about yourself o r that you are a failure, or have let yourself or your family down: Not at all Trouble concentrating on thi ngs, such as reading the newspaper or watching television: Several days Moving or speaking so slowly that other people could have noticed; or the opposite, being so fidgety or restless that you have been moving around a lot more than usual: Not at all Thoughts that you would be b juliocesar off or of hurting yourself in some way: Not at all Total Score: 1 Interpretation: Minimal Depression Psychiatric Assessment - Current Symptoms How ct. doing today? Client is a 34 yo M in-office today reporting he has been doing well. Back on medications for 2 months now. Definitely doing better. States has been working on vaping less. Reports taking medications well. Denies SE. States they are helpful. 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 Reports going to [facility] night program. Social: Help at home for work, just got a car and working on insurance. Reports family is doing well. Depression: Denies Anxiety: A little, like when I am driving. Anger/irritability: Denies Sleep: Decent Appetite: Low with the Ozempic. Drinking protein shakes. Hallucinations/paranoia: Denies Drugs/ETOH: Denies Therapy: Denies, not currently Denies SI/HI. Medical: Working to get PCP Screening Jackman Suicide Severity Rating Scale (LF) Do you want to initiate with: Screener form 1. Wish to be : Have you wished you were or wished you could go to sleep and not wake up?: No 2. Suicidal Thoughts: Have you actually had any thoughts of killing yourself?: No 6. Suicide Behavior Question: Have you ever done anything,started to do anything, or prepared to end your life?: No Interpretation:: Low Risk Mood Disorder Questionnaire 02-03-22 Questions Please answer each question to the best of your ability.: Has there ever been a time period when you were not your usual self and... You felt so good or hyper th at other people thought you were not your normal self or you were so hyper that you got into trouble?: Yes . You were so irritable that y ou shouted at people or started fights or arguments?: No . You got much less sleep than usual and found that you didn't really miss it?: Yes . You felt much more self-confident than u sual?: No . You were more talkative or spoke much fa ster than usual?: No . Thoughts raced through your head or you couldn't slow your mind down?: No . You were so easily distracte d by things around you that you had trouble concentrating or staying on track?: Yes . You had more energy than usual?: Yes . You were more active or did many more th ings than usual?: Yes . You were more social or outg oing than usual, for example, you telephoned friends in the middle of the night?: No . You were more interested in sex than usu al?: No . You did things that were usu al for you or that other people might have thought were excessive, foolish, or risky?: No . Spending money got you or your family in trouble?: No . If you checked YES to more t rojo one of the above, have several of these ever happened during the same period of time?: Yes . How much of a problem did an y of these cause you - like being unable to work; having family, money or legal troubles; getting into arguments or fights?: No problems . CSSRS Interpretation and Follow Up Plan CSSRS Interpretation and Follow Up Plan CSSRS Screen documented using SF: Yes Risk Disposition from SF: Low - No Follo w Up Plan Required Follow Up Plan: No Follow Up Plan requir ed at this time. Examination Category Sub-Category Detail Notes Category Not es Mental Status Exam SENSORIUM AND COGNITION Alert , Oriented to Person, Oriented to Place, Oriented to Time, Oriented to Situation ATTENTION AND CONCENTRATION Impaired att ention/concentration APPEARANCE Appropriate ATTITUDE AND BEHAVIOR Cooperative, Personnel Research Scientist tive MEMORY Immediate, Recent, R emote EYE CONTACT Good AFFECT Broad/Full MOOD Euthymic SPEECH QUANTITY Appropriate SPEECH QUALITY Appropriate volume THOUGHT PROCESS Coherent and goal di rected THOUGHT CONTENT Appropriate - WNL MOTOR ACTIVITY Normal gait, No abno rmal movements or tics noted SUICIDAL IDEATION Denies suicidal idea tion HOMICIDAL IDEATION Denies homicidal corey ation HALLUCINATIONS Denies hallucination s INSIGHT Good JUDGMENT Good FUND OF KNOWLEDGE Good ABILITY TO PARTICIPATE IN TREATMENT Mode rate WILLINGNESS TO PARTICIPATE I N TREATMENT High
--- OUTSIDE RECORDS SUMMARY | 2024-10-25 00:14 | XMS_ITS ---
Author Organization [facility] Address [address] [place] [address] Care Team Providers Care After School Program Coordinator Name Role Phone Cecelia Agee Primary Care Provider REASON FOR VISIT LM to R/S - mlr 4 week Social History Sex Assigned At : Social History Observation Description Sex Assigned At Male Encounters Encounter Location Date Provider Diagnosis [address] [address] 10/01/2024 Cecelia Agee Plan Of Treatment No Information Progress Notes * Oscar CLEARYDOB: 0 (34 yo M)Acc No.[id number]:10/01/2024 UNLOCKED PROGRESS NOTE Patient: Oscar COPELAND Provider: REE Alvarenga, DIE CLEANER, LANDSCAPE DESIGNER-C :1990 A ge:34 Y S ex:Male Date:10/01/2024 Address:[address] [place], [place] [id number] Subjective: * Chief Complaints: * 1 . LM to R/S - mlr 4 week. * Medical History: Objective: * Vitals: Assessment: Plan: * Treatment: * * Electronic signature of Leonor Agee , [id number] on 10/25/2024 at 12:14 AM CDT Sign off status: Pending * Provider: REE Alvarenga, DIE CLEANER, LANDSCAPE DESIGNER-C Date: 0 10/01/2024 Generated for Printi ng/Faxing/eTransmitting on: 0 10/25/2024 12:14 AM CDT
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
--- OUTSIDE RECORDS SUMMARY | 2024-10-25 00:14 | XMS_ITS | Clinical Summary ---
Author Organization [facility] [employer] Address [address] [place] [address] Care Team Providers Care Extern Name Role Phone Unavailable Primary Care Provider Unavailabl e Source Comments [facility],non-owned Affiliates and Associated Physician Practices is amultiple site organization consisting of ambulatory clinics and hospital sitesin [place], [place], [place] and [place]. This disclosure is being madepursuant to the Care Everywhere program and may not contain all information available regarding this patient. Last updated 18.[facility] [employer] Social History Tobacco Use Types Packs/Day Years Used Date Smoking Tobacco: Never Assessed Sex and Gender Information Value Date Recorded Sex Assigned at Not on file Gender Identity Not on file Sexual Orientation Not on file Last Filed Vital Signs Vital Sign Reading Time Taken Comments Blood Pressure 133/67 07/31/2016 7:32 AM VOCATIONAL REHABILITATION TECHNICIAN Pulse 91 07/31/2016 7:32 AM VOCATIONAL REHABILITATION TECHNICIAN Temperature 37 C (98.6 F) 07/31/2016 7:32 AM VOCATIONAL REHABILITATION TECHNICIAN Respiratory Rate 18 07/31/2016 7:32 AM VOCATIONAL REHABILITATION TECHNICIAN Oxygen Saturation 98% 07/31/2016 7:32 AM VOCATIONAL REHABILITATION TECHNICIAN Inhaled Oxygen Concentration - - Weight 129.3 kg (285 lb) 07/31/2016 7:32 AM VOCATIONAL REHABILITATION TECHNICIAN Height 170.2 cm (5' 7 ) 07/31/2016 7:32 AM VOCATIONAL REHABILITATION TECHNICIAN Body Mass Index 44.64 07/31/2016 7:32 AM VOCATIONAL REHABILITATION TECHNICIAN Plan of Treatment Health Maintenance Due Date Last Done Comments HIV SCREENING 2005 HEPATITIS C SCREENING 06/11/2008 DTAP/TDAP/TD VACCINES (1 - Tdap) 2009 HEPATITIS B VACCINE (1 of 3 - 19+ 3-dose series) 2009 COVID-19 VACCINE ( - 2023-2 5 season) 2024 INFLUENZA VACCINE (#1) 2024 DEPRESSION SCREENING 08/15/2024 ZOSTER VACCINE (1 of 2) 2040 HIB VACCINE Aged Out No longer eligi ble based on patient's age to complete this topic HPV VACCINE Aged Out No longer eligi ble based on patient's age to complete this topic MENINGOCOCCAL (Group B) VACC INE SHARED DECISION-MAKING Aged Out No longer eligibl e based on patient's age to complete this topic MENINGOCOCCAL GROUPS A/C/Y/W VACCINE Aged Out No longer eligible b ased on patient's age to complete this topic PNEUMOCOCCAL VACCINE Aged Out No long er eligible based on patient's age to complete this topic
--- OUTSIDE RECORDS SUMMARY | 2024-10-25 00:14 | XMS_ITS | Patient Health Record ---
Author Organization [facility] Office Address [address] [facility] [address] [facility] [address] [place] [id number] REASON FOR REFERRAL No Information MEDICATIONS Medication SIG (Take, Route, Frequency, Duration) Notes Start Date End Date Status Losartan Potassium 25 MG TAKE 1 TABLET B Y MOUTH EVERY DAY for 90 Active Calcitriol 0.25 MCG TAKE 1 CAPSULE BY MO UTH EVERY DAY for 30 Active PROBLEMS Problem Type ICD Code Onset Dates Problem Status W/U Status Risk SNOMED Code Notes Problem Secondary hyperparathyroid ism, not elsewhere classified (E21.1) Active confirmed Secondary hyperparathyroidism (92717505) Problem Essential (primary) hypertension (I10) Active confirmed Essential hypertension (93152829) Problem Chronic kidney disease, stage 2 (mild) (N18.2) Active confirmed Chronic kidne y disease stage 2 (820083995) Problem Renal osteodystrophy (N25.0) Active confirmed Renal osteodyst rophy (81644933) Problem Other proteinuria (R80.8) Active confirmed Proteinuria (57079283) PLAN OF TREATMENT No Information
--- OUTSIDE RECORDS SUMMARY | 2024-10-25 00:15 | XMS_ITS | Clinical Summary ---
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 Gender Identity Not on file Sexual Orientation Not on file Plan of Treatment Health Maintenance Due Date Last Done Comments Hepatitis C Virus (HCV) Screening 1990 TdaP Immunization 1990 Hepatitis B Immunization (3 of 3 - 19+ 3-dose series) 03/08/2016 11/07/2015, 09/08/2015 Influenza Immunization (#1) 2024 05/29/2019 SARS-COV-2 Immunization ( season) 2024 09/03/2021, 12/05/2020, 11/14/2020, Additional history exists Respiratory Syncytial Virus (RSV) Immunization (Adult) (1 - 1-dose 75+ series) 2065 Meningococcal Immunization (ACWY) Aged Out No longer eligible based on patient's age to complete this topic Pneumococcal Immunization Combined Aged Out No longer eligible based on patient's age to complete this topic Rotavirus Immunization Aged Out No lo nger eligible based on patient's age to complete this topic
--- OUTSIDE RECORDS SUMMARY | 2024-10-25 00:15 | XMS_ITS | Data Portability ---
Author Organization [place] - [facility], Main Office Address [address] [place] [address] Assessment Encounter Date Assessment Date Assessment LastModified by Organization Details LastModified Time 01/24/2023 01/24/202302/19/22 Call office if worse, ER if life threatening illness RTC in 1month He voices understanding of plan and agrees [email or web address] Not available 01/24/2023 14:22:57 01/27/2023 01/27/2023 Spent up to 50 minutes preparing to see the patient (eg, review of tests), obtaining and/or reviewing separately obtained history, performing a medically appropriate examination and evaluation, counseling and educating the patient, ordering medications, tests, along with documenting clinical information in the electronic health record, independently interpreting results and communicating results to the patient. [email or web address] Not available 01/27/2023 14:01:02 03/04/2023 03/04/2023 JADE03/04/23 Call office if worse, ER if life threatening illness RTC in 4 months He voices understanding of plan and agrees Not available 03/04/2023 17:22:51 03/29/2023 03/29/2023 The patient gave verbal consent using TeleHealth services and the consent is documented in the medical record prior to using the service. The patient has been informed of what a TeleMedicine visit is. Patient is located at home. Provider is located at office. Names and roles of persons in addition to the patient and provider participating in telemedicine services include none. The patient had a 11 minute TeleMedicine consultation via [employer] to discuss the following: [email or web address] Not available 03/29/2023 14:19:42 05/10/2023 05/10/2023 The patient gave verbal consent using TeleHealth services and the consent is documented in the medical record prior to using the service. The patient has been informed of what a TeleMedicine visit is. Patient is located at home. Provider is located at office. Names and roles of persons in addition to the patient and provider participating in telemedicine services include none. The patient had a 12 minute TeleMedicine consultation via [employer] to discuss the following: Not available 05/10/2023 15:47:16 Plan of Treatment Reminders Order Date Submit Date Provider Last Modified By Organization Details Last Modified Time Details Appointments None recorded. Lab None recorded. Referral psychiatris t referral - adhd eval 2022 023 [email or web address] [facility], [address] [facility], [place], [address], 4 12:09:29 cardiologis t referral 2022 023 [email or web address] Robert Miner MD, [address] [facility], [facility] [[email or web address]] [address], [place], [address], 4 12:09:30 Procedures None recorded. Surgeries None recorded. Imaging None recorded. Medication Orders losartan 100 mg tablet 2022 023 [facility] #[id number], [address], [place], [address], 3 16:35:12 losartan 100 mg tablet 2022 023 [facility]armacy #[id number], [address] , [place], [address], 3 14:19:08 Patient TargetsNo targets recorded. Patient Instructions Encounter Date Encounter Id Patient Instructions Last Modified By Organization Details Last Modified Time 03/04/2023 [id number] INFLUENZA VACCIN E TD/TDAP Recommended today, patient declined Ordered P atient will get at local pharmacy/health department COLORECTAL SCREENING Recommended today, but patient declined Ordered C olonoscopy declined. Cologuard ordered No screening necessary until age 45 DEPRESSION SCREENING Positive, History of depression, continue current medication BMI Overweight Appropr iate Underweight O besity continue your current weight loss efforts try to lose 5% of your body weight try to lose 10% of your body weight NUTRITION Continue healthy eating & exercise PHYSICAL ACTIVITY Need more activity minimum of 10-20 minutes of activity that causes mild breathlessness/day minimum of 20-30 minutes activity that causes mild breathlessness/day minimum of 30-40 minutes of activity that causes mild breathlessness/day VISION Ordered Recommende d today ALCOHOL USE No alcohol use TOBACCO USE former smoker current tobacco use Patient is not interested in smoking cessation at this time- Handout given SEXUALLY ACTIVE Yes, Patient is in monogamous relationship GLUCOSE SCREENING Not needed LIPID SCREENING Not needed [email or web address] Not available 03/04/2023 17:24:19 03/29/2023 [id number] Due to the COVID-19 (Novel Coronavirus) pandemic, it is within this context (and with the understanding that this method of patient encounter is in the patient s best interest as well as the health and safety of other patients and the public) that t elehealth is being provided for this patient encounter rather than a lptm-ai-faqo visit. This patient encounter is appropriate at this time. This patient has been advised of the potential risks and limitations of this mode of treatment (including, but not limited to, the absence of in-person examination) and has agreed to be treated in a remote fashion despite these risks. Any and all of the patient s /patient s family s questions on this issue have been answered, and I have made no promises or guarantees to the patient. The patient has also been advised to contact this office for worsening conditions or problems, and seek emergency medical treatment and/or call 911 if the patient deems either necessary. HPI and/or vitals, if listed, were provided by the patient. [email or web address] Not available 03/29/2023 12:06:21 05/10/2023 [id number] Due to the COVID-19 (Novel Coronavirus) pandemic, it is within this context (and with the understanding that this method of patient encounter is in the patient s best interest as well as the health and safety of other patients and the public) that t elehealth is being provided for this patient encounter rather than a wabr-ex-tchf visit. This patient encounter is appropriate at this time. This patient has been advised of the potential risks and limitations of this mode of treatment (including, but not limited to, the absence of in-person examination) and has agreed to be treated in a remote fashion despite these risks. Any and all of the patient s /patient s family s questions on this issue have been answered, and I have made no promises or guarantees to the patient. The patient has also been advised to contact this office for worsening conditions or problems, and seek emergency medical treatment and/or call 911 if the patient deems either necessary. HPI and/or vitals, if listed, were provided by the patient. Not available 05/10/2023 12:18:29 Reason for Referral Psychiatrist Referral for Un able to concentrate adhd eval Referring Physician: Rachel Julio, Internal Medicine, Encounter Date: 01/24/2023 Payroll Benefits Clerk Referral for Es sential hypertension Referring Physician: Rachel Julio, Internal Medicine, Encounter Date: 01/24/2023 Results Created Date Observation Date Name Description Value Unit Range Abnormal Flag Note LastModifiedBy Organization Detail LastModifiedTime 12/30/19 23 12/29/2022 PPD (charu fied prote in deriv ative ), skin test TB negati ve Not Available [facility] Internal Med [address] [facility], [address], [place], [address], 12/27/2022 10:12:22 01/12/20 23 01/11/2023 CT, abdom en + pelvi s, w/ contr ast No observ ation record ed. [email or web address], [place], [address], 01/12/2023 13:58:48 Result Notes None recorded. Problems Name Problem SNOMED Code Status Onset Date Resolution Date Notes Provider Name and Address Organization Details Recorded Time Proteinuria 02938287 Active 2021 Not Available [facility] 3 10:46:53 Diverticuliti s 962069561 Active 2021 Not Available [facility] 3 10:46:53 Vitamin D deficiency 67882120 Active 2021 Not Available [facility] 3 10:46:53 Hyperlipidemi a 39515245 Active 2022 Not Available [facility] 3 10:46:53 Unable to concentrate 54136079 Active 2022 Not Available [facility] 3 10:46:53 Mixed anxiety and depressive disorder 297091622 Active 2022 Not Available [facility] 3 10:46:53 Sleep apnea 32422222 Active 2022 Not Available [facility] 3 10:46:53 Obesity 570145253 Active 2022 Not Available [facility] 3 10:46:53 Nicotine dependence with current use 321436813 Active 2022 Not Available [facility] 3 10:46:53 Essential hypertension 85323734 Active 2022 Not Available [facility] 3 10:46:53 Prediabetes 428862729 Active 2022 Not Available [facility] 3 10:46:53 Obstructive sleep apnea syndrome 23426152 Active 2022 Not Available [facility] 3 10:46:53 Fatigue 05592601 Active 2022 Not Available [facility] 3 10:46:53 Notes:Medical History: Nicot ine dependence Anxiety/Depression Obesity with mild OSAHS, AHI = 8, 03/05/22, on CPAP Mixed hyperlipidemia Proteinuria PLMD Vit D deficiency Problem Notes None recorded. Procedures Surgical History None recorded. Imaging Results Imaging Date Name Status LastModified by Organiz ation Details LastModified Time 01/11/2023 CT, abdomen + pelvis, w/ contrast completed [address] [facility] [address], [place], [address], 01/12/2023 13:58:48 Procedure Notes None recorded. Medical Equipment None Reported. Allergies No known drug allergies Medications Name Sig Start Date Stop Date Status Note LastModified by Organization Details LastModified Time nicotine 14 mg/24 hr daily transderm al patch APPLY 1 PATCH DAILY TO SKIN 2022 active Not Available Not Available Not Avai lable cetirizin e 10 mg tablet TAKE 1 TABLET BY MOUTH EVERY DAY 01/19 completed Not Available Not Available Not Available ibuprofen 800 mg tablet TAKE 1 TABLET BY MOUTH TWICE A DAY FOR 10 DAYS active Not Available Not Available No t Available metronida zole 500 mg tablet TAKE 1 TABLET BY MOUTH EVERY 8 HOURS 01/19 completed Not Available Not Available Not Available amlodipin e 5 mg tablet TAKE 1 TABLET BY MOUTH EVERY DAY active Not Available Not Available No t Available ciproflox acin 500 mg tablet TAKE 1 TABLET BY MOUTH EVERY 12 HOURS 01/19 completed Not Available Not Available Not Available amoxicill in 500 mg tablet TAKE 1 TABLET BY MOUTH THREE TIMES A DAY FOR 10 DAYS active Not Available Not Available No t Available amlodipin e 10 mg tablet TAKE 1 TABLET BY MOUTH EVERY DAY active Not Available Not Available No t Available losartan 25 mg tablet TAKE 1 TABLET BY MOUTH EVERY DAY 01/24 completed Not Available Not Available Not Available ergocalci ferol (vitamin D2) 1,250 mcg (50,000 unit) capsule TAKE 1 CAPSULE BY MOUTH ONCE WEEKLY active Not Available Not Available No t Available methylpre dnisolone 4 mg tablets in a dose pack TAKE 6 TABLETS ON DAY 1 DIRECTED ON PACKAGE AND DECREASE BY 1 TAB EACH DAY FOR A TOTAL OF 6 DAYS 02/19 completed Not Available Not Available Not Available albuterol sulfate HFA 90 mcg/actua tion aerosol inhaler INHALE 1-2 PUFFS BY MOUTH ONCE EVERY 4-6 HOURS NEEDED FOR SHORTNES S OF BREATH/W HEEZING 03/19 completed Not Available Not Available Not Available ondansetr on 4 mg disintegr ating tablet DISSOLVE 1 TABLET ON TONGUE EVERY 8 HOURS NEEDED FOR NAUSEA AND VOMITING . active Not Available Not Available No t Available losartan 100 mg tablet TAKE 1 TABLET BY MOUTH EVERY DAY active Not Available Not Available No t Available fluticaso ne propionat e 50 mcg/actua tion nasal spray,[place] pension INSTILL 1 SPRAY INTO EACH NOSTRIL TWICE DAILY 02/19 completed Not Available Not Available Not Available calcitrio l 0.25 mcg capsule TAKE 1 CAPSULE BY MOUTH EVERY DAY active Not Available Not Available No t Available amoxicill in 875 mg-potass ium clavulana te 125 mg tablet TAKE 1 TABLET BY MOUTH EVERY 12 HOURS 01/24 completed Not Available Not Available Not Available Strattera 40 mg capsule TAKE 1 CAPSULE BY MOUTH EVERY DAY IN THE MORNING FOR 30 DAYS active Not Available Not Available No t Available rosuvasta tin 5 mg tablet TAKE 1 TABLET BY MOUTH EVERY DAY active Not Available Not Available No t Available bupropion HCl XL 300 mg 24 hr tablet, extended release TAKE 1 TABLET BY MOUTH EVERY DAY active Not Available Not Available No t Available bupropion HCl XL 150 mg 24 hr tablet, extended release TAKE 1 TABLET BY MOUTH EVERY DAY IN THE MORNING 03/19 completed Not Available Not Available Not Available duloxetin e 30 mg capsule,d elayed release TAKE 1 CAPSULE BY MOUTH EVERY DAY 07/13 completed Not Available Not Available Not Available duloxetin e 60 mg capsule,d elayed release TAKE 1 CAPSULE BY MOUTH EVERY DAY active Not Available Not Available No t Available Vyvanse 30 mg capsule TAKE 1 CAPSULE BY MOUTH EVERY DAY IN THE MORNING FOR 30 DAYS active Not Available Not Available No t Available Vyvanse 40 mg capsule TAKE 1 CAPSULE BY MOUTH EVERY DAY IN THE MORNING FOR 30 DAYS active Not Available Not Available No t Available Trulicity 1.5 mg/0.5 mL subcutane ous pen injector Inject 1.5 mg every week by subcutan eous route. 12/17 completed dosage increase d to 3mg Not Available Not Available Not Available Trulicity 0.75 mg/0.5 mL subcutane ous pen injector INJECT THE CONTENTS OF 1 PEN UNDER THE SKIN ONCE EVERY 7 DAYS 12/17 completed dosage increase d to 3mg Not Available Not Available Not Available ID NOW COVID-19 Test Kit DIRECTED 01/19 completed Not Available Not Available Not Available Trulicity 3 mg/0.5 mL subcutane ous pen injector INJECT THE CONTENTS OF 1 PEN UNDER THE SKIN ONCE WEEKLY active Not Available Not Available No t Available Vitals Date Recorded Body height Body mass index (BMI) Body weight Body temperature Heart rate Oxygen saturation Oxygen saturation in Arterial blood by Pulse oximetry Systolic blood pressure Diastolic blood pressure Provider Name and Address Organization Details Last Updated DateTime 3 170.18 cm 46.5 kg/m2 513951. 93 g 98 [degF] 110 /min 97 % 97 % 168 mm[Hg] 92 mm[Hg] Sadie Phillip, [facility] [facility] [employer] [facility] 3 14:00:19 Date Recorded Body height Body mass index (BMI) Body weight Heart rate Oxygen saturation Oxygen saturation in Arterial blood by Pulse oximetry Systolic blood pressure Diastolic blood pressure Provider Name and Address Organization Details Last Updated DateTime 3 170.18 cm 46.9 kg/m2 738050. 84 g 104 /min 97 % 97 % 138 mm[Hg] 76 mm[Hg] Chelo Carroll [facility] [employer] [facility] 3 12:47:01 Date Recorded Body height Body mass index (BMI) Body weight Body temperature Heart rate Oxygen saturation Oxygen saturation in Arterial blood by Pulse oximetry Systolic blood pressure Diastolic blood pressure Provider Name and Address Organization Details Last Updated DateTime 3 170.18 cm 46.4 kg/m2 201164. 34 g 98.1 [degF] 106 /min 98 % 98 % 136 mm[Hg] 78 mm[Hg] Sadie Phillip MA [facility] [employer] [facility] 3 16:24:23 Date Recorded Body height Provider Name an d Address Organization Details Last Updated DateTime 03/29/2023 170.18 cm Alivia Linda MA [facility] [employer] [facility] 03/29/2023 12:06:28 Social History Question Answer Notes LastModified by Organization Details LastModified Time Tobacco Smoking Status Never Smoker Not Available [facility] 10/14/2022 00:58:08 What Is Your Level Of Alcohol Consumption? Occasional MIGRATION.382 [id number] Information not available 10/14/2022 What Is Your Level Of Caffeine Consumption? Moderate MIGRATION.373 [id number] Information not available 10/14/2022 In The 14 Days Before Symptom Onset, Have You Had Close Contact With A Laboratory-conf irmed COVID-19 While That Case Was Ill? No MIGRATION.297 [id number] Information not available 10/14/2022 In The 14 Days Before Symptom Onset, Have You Had Close Contact With A Person Who Is Under Investigation For COVID-19 While That Person Was Ill? No MIGRATION.126 [id number] Information not available 10/14/2022 What Type Of Diet Are You Following? REGULAR No Nuts MIGRATION.856 [id number] Information not available 10/14/2022 Do You Or Have You Ever Used E-cigarettes Or Vape? Current User Of Electronic Cigarettes Vapes Non Nicotine Ocassionally MIGRATION.510 [id number] Information not available 10/14/2022 What Is The Highest Grade Or Level Of School You Have Completed Or The Highest Degree You Have Received? 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 Yes MIGRATION.768 [id number] Information not available 10/14/2022 What Is The Fluoride Status Of Your Home? Unknown MIGRATION.253 [id number] Information not available 10/14/2022 Are There Any Guns Present In Your Home? No MIGRATION.988 [id number] Information not available 10/14/2022 Do You Use Insect Repellent Routinely? No MIGRATION.721 [id number] Information not available 10/14/2022 Where Do You Live? [place] MIGRATION.963 [id number] Information not available 10/14/2022 What Was The Date Of Your Most Recent Tobacco Screening? 03/04/2023 [email or web address] Information not available 03/04/2023 Do You Have Any Pets? Yes MIGRATION.126 [id number] Information not available 10/14/2022 What Is Your Relationship Status? MIGRATION.802 [id number] Information not available 10/14/2022 Do You Use Your Seat Belt Or Car Seat Routinely? Yes MIGRATION.728 [id number] Information not available 10/14/2022 Do You Have Smoke And Carbon Monoxide Detectors In Your Home? Yes MIGRATION.402 2093594 Information not available 10/14/2022 Are You Passively Exposed To Smoke? Yes MIGRATION.871 [id number] Information not available 10/14/2022 Are There Any Smokers In Your House? No MIGRATION.482 [id number] Information not available 10/14/2022 Do You Feel Stressed (tense, Restless, Nervous, Or Anxious, Or Unable To Sleep At Night)? [id number] MIGRATION.967 4870120 Information not available 10/14/2022 Do You Use Any Illicit Or Recreational Drugs? No MIGRATION.637 [id number] Information not available 10/14/2022 Do You Use Sunscreen Routinely? No MIGRATION.665 [id number] Information not available 10/14/2022 Have You Recently Traveled Abroad? No MIGRATION.515 [id number] Information not available 10/14/2022 Do You Have Any Dietary Restrictions? No MIGRATION.252 [id number] Information not available 10/14/2022 Do You Or Have You Ever Used Any Other Forms Of Tobacco Or Nicotine? Yes MIGRATION.189 [id number] Information not available 10/14/2022 Sex: Unknown Functional Status Question Answer Note LastModified by Organizat ion Details LastModified Time What is your exercise level? Occasional [id number] Information not available 10/14/2022 Mental Status None recorded. Family History Relationship Description Onset Age of this Age Resolved Age Notes LastModified by Organization Details LastModified Time Father No current problems or disability MIGRATION.660 [id number] Not available 10/14/2022 00:58:56 Mother No current problems or disability MIGRATION.242 [id number] Not available 10/14/2022 00:58:56 Medical History Condition Response GI PROBLEMS Immunizations Vaccine Type Date Status Note Provider Nam e and Address Organization Details Recorded Time Influenza, split virus, quadrivalent, PF 07/16/2022 completed Not Available [facility] 01:55:05 COVID-19, mRNA, LNP-S, PF, karishma-sucrose, 30 mcg/0.3 mL 07/13/2023 completed IWLDER Cam[place] [facility] 07/26/2023 10:57:25 Past Encounters Encounter ID Performer Location Encounter Start Date Encounter Closed Date Diagnosis/Indication Diagnosis SNOMED-CT Code Diagnosis ICD10 Code Diagnosis Note [id number] [facility] [[email or web address] [address] , [address] [address] 01/19/2022 00:00:00 01/19/2022 17:21:35 [id number] [facility] [[email or web address] [address] [facility] [address] [address] 02/19/2022 00:00:00 02/19/2022 15:40:23 [id number] [facility] [[email or web address] [address] [place], [place] [address], [address] [address] 03/19/2022 00:00:00 03/19/2022 17:16:48 [id number] [facility] [address] , [address] [address] 04/30/2022 00:00:00 04/30/2022 17:17:16 [id number] [facility] [[email or web address] [address] [facility] [[email or web address]] 15 [place] [address] 06/04/2022 00:00:00 06/04/2022 11:17:39 [id number] [facility] [[email or web address]] [address] [place] [address] Ave[address] [address] 07/16/2022 00:00:00 07/16/2022 13:18:02 [id number] [facility] [address] [facility] [[email or web address] 15 [place] [address] 09/17/2022 00:00:00 09/17/2022 11:26:18 [id number] SHANDRA Marie [facility] [[email or web address]] [address] [place] [address] Ave[address] [address] 11/26/2022 14:22:33 11/26/2022 14:41:22 Mixed anxiety and depressive disorder 802049518 F41.8 on duloxetine - he is aware of side effects, risks, and benefitsCa office if any change in mood or behaviorHa s been referred to psychiatry - Joseph- encouraged him to call for his assesmentC diamond recommende d -names/num bers previously given to patient Encouraged him to use the resources available at his school including the [employer] for tutoring help Sleep apnea 41758706 G47 .30 had CPAP titration last night, awaiting report Vitamin D deficiency 347 92656 E55.9 on supplement Proteinuria 99595623 R80 .9 following nephrology - Dr. Vasquez Hyperlipidemia 85462788 E78.5 mild, no meds, work on diet/exerc ise Unable to concentrate 60 645566 R41.840 on Wellbutrin -he is aware of side effects, risks, and benefitsCa office if any change in mood or behaviorps psychiatric referral as above Obesity 392960117 E66.9 recommend healthy, well balanced mealsfocus on lean meats, fresh vegetables , fresh fruits, whole grainsredu ce fast/proce ssed foods or eating out to no more than 1-2 times per weekaim to get 30 min of exercise most days of the week- walking is a great choicealso recommend resistance training 2-3 times per week Nicotine d ependence with current use 535523931 F17.200 3 minutes spent with patient discussing risks, cessation options. Patient encouraged to quit. Wants to try nicotine patch, he is aware of side effects, risks, benefits Essential hypertension 33588397 I10 on losartan from nephrology on amlodipine , he is aware of side effects, risks, and benefitsge t appt with cardiology strongly encouraged him to stop smoking/va Liza precaution s discussed Prediabetes 734536880 R7 3.03 We discussed options to help with obesity, portion control and cravings. He elects a trial of Trulicityi ncrease trulicity per his request pt is aware of side effects, risks, benefitspt denies any personal or family history of MEN II or MTC, denies and personal history of pancreatit ispt knows to call the office if any severe n/v or abdominal pain [id number] Keri Carrillo, [facility] Pulmonolo [facility] [place] [address] [place] [address] 12/17/2022 09:51:56 12/20/2022 08:32:10 Obstructive sleep apnea syndrome 53014819 G47.33 Home study 02/2022 with [facility] 8Titration completed 11/2022 with best pressure obtainedOr rhea for PAP today at 12 cm V4WNevgwog ed set up, use, mask comfort, cleaningEn couraged 100% compliance with all sleepFollo w with PCM for labsAdvise d good sleep habits and patterns:- Set a goal for at least 7 to 8 hours of sleep time per day.-Use the bed mainly for sleep and to go to bed only when tired. If unable to fall asleep after 30 minutes, patient should get out of bed but should not engage in any activity that requires sustained mental alertness. -Maintain a regular bedtime and wake-up time even on weekends or days off of work.-Avoi d excessive naps during the daytime. If a nap is necessary, limit it to no more than 30 minutes.-M inimize environmen radha noise, bright lights, and extremes in bedroom temperatur e.-Avoid alcohol, caffeinate d beverages, and nicotine products for at least 6 hours prior to bedtime.-A void strenuous exercise and large meals for at least 4 hours prior to bedtime.He will RTC for compliance visit per insurance requiremen ts, call PRN for concerns Fatigue 73357935 R53.83 Multifacto ral, reassess after PAP initiation Essential hypertension 00506246 I10 Well controlled in office today, 122/70Foll ow with cardiology per PCM referral, BP log Body mass index 40+ - severely obese 184280396 Z68.42 Discussed weight management .DIscussed the [facility] ip between ONI and obesityHea lthy well balanced meals.Incr ease exercise, ideally 30 minutes most days of the week. [id number] SHANDRA Marie [facility] Internal Med [address] [facility], [place] [address] 12/17/2022 15:12:09 12/17/2022 16:07:40 Immunization status unknown 889298398 Z76.89 check titers Drug of abuse screen 897 59637 Z02.83 check drug screen Tuberculos is screening 873310326 Z11.1 check PPD- he is aware he needs to come back Tuesday to have it read, then come back the following Tuesday for the 2nd test and the following Tuesday to have that one read Mixed anxi ety and depressive disorder 742768151 F41.8 on duloxetine - he is aware of side effects, risks, and benefitsCa office if any change in mood or behaviorHa s been referred to psychiatry - [place]- encouraged him to call for his assesmentC diamond recommende d -names/num bers previously given to patient Encouraged him to use the resources available at his school including the [employer] for tutoring help Sleep apnea 30372206 G47 .30 on cpapnow following pulm- Keri Carrillo Vitamin D deficiency 347 24534 E55.9 on supplement Proteinuria 50241447 R80 .9 following nephrology - Dr. Vasquez Hyperlipidemia 74698301 E78.5 mild, no meds, work on diet/exerc ise Unable to concentrate 60 117167 R41.840 on Wellbutrin -he is aware of side effects, risks, and benefitsCa office if any change in mood or behaviorps ych referral as above Obesity 291179586 E66.9 recommend healthy, well balanced mealsfocus on lean meats, fresh vegetables , fresh fruits, whole grainsredu ce fast/proce ssed foods or eating out to no more than 1-2 times per weekaim to get 30 min of exercise most days of the week- walking is a great choicealso recommend resistance training 2-3 times per week Nicotine d ependence with current use 269638157 F17.200 3 minutes spent with patient discussing risks, cessation options. Patient encouraged to quit. Wants to try nicotine patch, he is aware of side effects, risks, benefits Essential hypertension 05065696 I10 on losartan from nephrology on amlodipine , he is aware of side effects, risks, and benefitsge t appt with cardiology - has been referredst peter encouraged him to stop smoking/beth De Jesus precaution s discussed Prediabetes 720069425 R7 3.03 We discussed options to help with obesity, portion control and cravings. He elects a trial of Trulicityi ncrease trulicity per his request pt is aware of side effects, risks, benefitspt denies any personal or family history of MEN II or MTC, denies and personal history of pancreatit ispt knows to call the office if any severe n/v or abdominal pain History an d physical examination, school 53902668 Z02.0 He needs to bring his Hep B and Tdap paperwork from the pharmacy next week so I can finish filling out his form [id number] SHANDRA Marie [facility] Internal Med [facility] [[email or web address]] [address] [place] [address] 12/29/2022 12:10:40 12/29/2022 12:29:42 [id number] SHANDRA Marie [facility] Internal Med [facility] [[email or web address] [address] [place] [address] 01/24/2023 13:50:32 01/24/2023 14:27:14 Mixed anxiety and depressive disorder 485673440 F41.8 on duloxetine - he is aware of side effects, risks, and benefitsCa office if any change in mood or behaviorHa s been referred to psychiatry - Joseph- encouraged him to call for his assesement Counseling recommende d -names/num bers previously given to patient Encouraged him to use the resources available at his school including the [employer] for tutoring help Sleep apnea 57886913 G47 .30 on cpapnow following pulm- Keri Carrillo Vitamin D deficiency 347 06699 E55.9 on supplement Proteinuria 83774085 R80 .9 following nephrology - Dr. Vasquez Hyperlipidemia 77873122 E78.5 mild, no meds, work on diet/exerc ise Unable to concentrate 60 762845 R41.840 on Wellbutrin -he is aware of side effects, risks, and benefitsCa office if any change in mood or behaviorps psychiatric referral as above Obesity 256128461 E66.9 recommend healthy, well balanced mealsfocus on lean meats, fresh vegetables , fresh fruits, whole grainsredu ce fast/proce ssed foods or eating out to no more than 1-2 times per weekaim to get 30 min of exercise most days of the week- walking is a great choicealso recommend resistance training 2-3 times per week Nicotine d ependence with current use 645986848 F17.200 3 minutes spent with patient discussing risks, cessation options. Patient encouraged to quit. Wants to try nicotine patch, he is aware of side effects, risks, benefits Essential hypertension 55373402 I10 increase losartanon amlodipine , he is aware of side effects, risks, and benefitsge t appt with cardiology - has been referredst peter encouraged him to stop smoking/va pingER precaution s discussed Prediabetes 627095348 R7 3.03 We discussed options to help with obesity, portion control and cravings. He elects a trial of Trulicityi ncrease trulicity per his request pt is aware of side effects, risks, benefitspt denies any personal or family history of MEN II or MTC, denies and personal history of pancreatit ispt knows to call the office if any severe n/v or abdominal pain [id number] Keri Carrillo, DIVORCE LAW[employer]-[facility] Pulmonolo gy [place] [address] [facility] [address] [place] [address] 01/27/2023 12:45:38 01/27/2023 13:51:39 Sleep apnea 58330226 G47.30 Obstructiv e sleep apnea syndrome 68410800 G47.33 Home study 02/2022 with AHI 8Titration completed 11/2022 with best pressure obtainedOr rhea for PAP at last OV - 12 cm Z5SOyyibot ed set up, use, mask comfort, cleaningEn couraged 100% compliance with all sleepFollo w with PCM for labsAdvise d good sleep habits and patterns:- Set a goal for at least 7 to 8 hours of sleep time per day.-Use the bed mainly for sleep and to go to bed only when tired. If unable to fall asleep after 30 minutes, patient should get out of bed but should not engage in any activity that requires sustained mental alertness. -Maintain a regular bedtime and wake-up time even on weekends or days off of work.-Avoi d excessive naps during the daytime. If a nap is necessary, limit it to no more than 30 minutes.-M inimize environmen radha noise, bright lights, and extremes in bedroom temperatur e.-Avoid alcohol, caffeinate d beverages, and nicotine products for at least 6 hours prior to bedtime.-A void strenuous exercise and large meals for at least 4 hours prior to bedtime.He has appt for set up 02/11/23He will RTC for compliance visit per insurance requiremen ts (OK for telehealth ), call PRN for concerns Fatigue 46646159 R53.83 Multifacto ral, reassess after PAP initiation Essential hypertension 68436027 I10 Well controlled in office todayFollo w with cardiology per PCM referral, BP log Body mass index 40+ - severely obese 722143685 Z68.42 Discussed weight management .Discussed the relationsh ip between ONI and obesityHea lthy well balanced meals.Incr ease exercise, ideally 30 minutes most days of the week. [id number] SHANDRA Marie [facility] Internal Med [place] [address] [place] [address] 03/04/2023 16:14:36 03/04/2023 16:35:57 Mixed anxiety and depressive disorder 698579825 F41.8 on duloxetine - he is aware of side effects, risks, and benefitsCa ll office if any change in mood or behaviorHa s been referred to psychiatry - Joseph- encouraged him to call for his assesement Counseling recommende d -names/num bers previously given to patient Encouraged him to use the resources available at his school including the [employer] for tutoring help Sleep apnea 14955184 G47 .30 on cpapnow following pulm- Keri Carrillo Vitamin D deficiency 347 74875 E55.9 on supplement Proteinuria 72727270 R80 .9 following nephrology - Dr. Vasquez Hyperlipidemia 79356979 E78.5 mild, no meds, work on diet/exerc ise Unable to concentrate 60 340687 R41.840 on Wellbutrin -he is aware of side effects, risks, and benefitsCa office if any change in mood or behaviorps psychiatric referral as above Obesity 673513232 E66.9 recommend healthy, well balanced mealsfocus on lean meats, fresh vegetables , fresh fruits, whole grainsredu ce fast/proce ssed foods or eating out to no more than 1-2 times per weekaim to get 30 min of exercise most days of the week- walking is a great choicealso recommend resistance training 2-3 times per week Nicotine d ependence with current use 848030285 F17.200 3 minutes spent with patient discussing risks, cessation options. Patient encouraged to quit. Wants to try nicotine patch, he is aware of side effects, risks, benefits Essential hypertension 77868673 I10 on losartanon amlodipine , he is aware of side effects, risks, and benefitsge t appt with cardiology - has been referred, he decided not to gostrongly encouraged him to stop smoking/va pingER precaution s discussed Prediabetes 791487061 R7 3.03 We discussed options to help with obesity, portion control and cravings. He elects a trial of Trulicityi ncrease trulicity per his request pt is aware of side effects, risks, benefitspt denies any personal or family history of MEN II or MTC, denies and personal history of pancreatit ispt knows to call the office if any severe n/v or abdominal pain Adult heal th examination 411800949 Z00.01 Depression screening 171 120328 Z13.31 [id number] Keri Carrillo, DIVORCE LAWYER-[facility] Pulmonolo gy [place] [address] [place] [address] 03/29/2023 12:05:27 03/30/2023 12:27:10 Obstructive sleep apnea syndrome 39839264 G47.33 Home study 02/2022 with AHI 8Titration completed 11/2022 with best pressure obtainedDo wnload today with 57% use greater than 4 hoursOn CPAP 12 cm H2O his AHI is 2.1Encoura ged 100% compliance with all sleepFollo w with PCM for labsAdvise d good sleep habits and patterns:- Set a goal for at least 7 to 8 hours of sleep time per day.-Use the bed mainly for sleep and to go to bed only when tired. If unable to fall asleep after 30 minutes, patient should get out of bed but should not engage in any activity that requires sustained mental alertness. -Maintain a regular bedtime and wake-up time even on weekends or days off of work.-Avoi d excessive naps during the daytime. If a nap is necessary, limit it to no more than 30 minutes.-M inimize environmen radha noise, bright lights, and extremes in bedroom temperatur e.-Avoid alcohol, caffeinate d beverages, and nicotine products for at least 6 hours prior to bedtime.-A void strenuous exercise and large meals for at least 4 hours prior to bedtime.He has appt for set up 02/11/23RT C in 4-6 weeks for compliance Fatigue 63694189 R53.83 Multifacto ral, reassess after PAP compliance [id number] Keri Carrillo, DIVOR[employer] LAW[employer]-[facility] Pulmonolo gy [place] [address] [place] [address] 05/10/2023 12:20:03 05/10/2023 15:50:44 Obstructive sleep apnea syndrome 31960492 G47.33 Home study 02/2022 with AHI 8Titration completed 11/2022 with best pressure obtainedDo wnload today with 17% use greater than 4 hoursOn CPAP 12 cm H2O his AHI is 3.0Encoura ged 100% compliance with all sleepFollo w with PCM for labsAdvise d good sleep habits and patterns:- Set a goal for at least 7 to 8 hours of sleep time per day.-Use the bed mainly for sleep and to go to bed only when tired. If unable to fall asleep after 30 minutes, patient should get out of bed but should not engage in any activity that requires sustained mental alertness. -Maintain a regular bedtime and wake-up time even on weekends or days off of work.-Avoi d excessive naps during the daytime. If a nap is necessary, limit it to no more than 30 minutes.-M inimize environmen radha noise, bright lights, and extremes in bedroom temperatur e.-Avoid alcohol, caffeinate d beverages, and nicotine products for at least 6 hours prior to bedtime.-A void strenuous exercise and large meals for at least 4 hours prior to bedtime.He should follow up in 6 months Health Concerns Section Related Observation LastModified by Organization Detai ls LastModified Time None Recorded Concern Status LastModified by Organization Details LastModified Time None Recorded Advance Directives Directive None Recorded Payers Encounter Date Sequence Insurance Name Policy Number Policy Herrera Covered Member ID Herrera Member ID Guarantor Name 01/24/2023 1 [facility] ON OR AFTER 02/12/21 (MEDICAID REPLACEMENT - HMO) Oscar Kebede [id number] Oscar Delio 01/27/2023 1 [facility] ON OR AFTER 02/12/21 (MEDICAID REPLACEMENT - HMO) Oscar Kebede [id number] Oscar Delio 03/04/2023 1 [facility] ON OR AFTER 02/12/21 (MEDICAID REPLACEMENT - HMO) Oscar Kebede [id number] Oscar Delio 03/29/2023 1 [facility] ON OR AFTER 02/12/21 (MEDICAID REPLACEMENT - HMO) Oscar Kebede [id number] Oscar Kebede 05/10/2023 1 [facility] ON OR AFTER 02/12/21 (MEDICAID REPLACEMENT - HMO) Oscar Kebede [id number] Oscar Kebede Notes Date Note Type Note Provider Name and Address Organization Details Recorded Time 01/24/2023 text/html Oscar presents today for follow-up. He tells me he was able to turn all of his paperwork and he starts the [employer] program in February. He is still struggling with difficulty focusing and he still would like to be evaluated for ADHD. He has been referred to Psychiatry but he has not yet set up that appointment yet. He would like to get another referrals he lost the phone number. His blood pressure remains elevated today. He is asymptomatic with this. Last visit, we did refer him to Cardiology, however he has not gone. He tells me he does not have that phone number knee more needs another referral. He continues on with the Trulicity without issue. He denies any side effects. He reports the duloxetine and wellbutrin are helping with his anxiety and depression. He feels like this is a good dose for him. He denies any SI or HI today. He has been working on quitting smoking. He is no longer vaping and is using the 14 mg nicotine patch. This is working well for him. Rachel Julio, BLU-C [address], [facility] [[email or web address]] [address] [place], [address], [employer] 01/24/2023 14:23:23 01/27/2023 text/html Mr Delio meraz ts today to follow up on +sleep study, fatigue, restless sleep.Continues to report fatigue and poor sleep patterns.Does not have a set bedtimeWakes around the same time each day regardless of bedtimeHe is in nursing school and tells me he has difficulty with concentration at times Keri Carrillo, BLU-BC [address] [employer], [facility] [[email or web address]] [address], [place], [address], [employer] 01/27/2023 14:29:40 03/04/2023 text/html Oscar presents today for follow-up. He is also due for annual wellness exam. His blood pressure is finally well controlled after we increased his losartan. He tells me he did not get an appointment with the irrigation manager. He has decided he does not want to go. He did see the psychiatrist and they started him on Strattera. He reports he has been doing very well on this. He has started [employer] school and tells me he is at the top of his class. He is getting all A's. He tells me he is very excited as this is better than he expected it would be. Mood is stable on his mood medications. He denies any SI or HI today. He did finally get his CPAP as well. He tells me he is sleeping so much better and wakes up and feels rested and refreshed. He is following with pulmonology for compliance. He continues to do well on the Trulicity. He is not having any side effects. He is still having quite a poor diet. He is not getting much exercise. He does still smoke. Is not interested in cessation at this time. BLU Marie-Juan [address], [place], [address], [employer] 03/04/2023 17:24:46 03/29/2023 text/html Mr Delio meraz ts today via [employer] to follow up on +sleep study, fatigue, restless sleep, new ONI.Reports that he has had significant improvement with PAP useHe does continue to forget to put it on some nights and can tell a difference in his sleep qualityMask fits well, he does not wake R/T mask leakHe is in nursing school and tells me he can focus better after he uses his PAP at nightDenies aerophagia and xerostomiaMild burping in the morning when he wakes upNo morning headaches DARRON TavarezBC [address], [address], [place], [address], [employer] 03/29/2023 14:22:37 05/10/2023 text/html Mr Delio meraz ts today via Facetime to follow up on +sleep study, fatigue, restless sleep, new ONI.Reports that he has had significant improvement with PAP useHe does continue to forget to put it on some nights and can tell a difference in his sleep qualityMask fits well, he does not wake R/T mask leakHe is in nursing school and tells me he can focus better after he uses his PAP at nightDenies aerophagia and xerostomiaMild burping in the morning when he wakes upNo morning headaches TOYIN Tavarez [address], [address], [place], [address], [employer] 05/10/2023 15:55:35
--- OUTSIDE RECORDS SUMMARY | 2024-10-25 02:04 | XMS_ITS | Clinical Summary ---
Author Organization [facility] [employer] Address [address] [facility] [place] [address] Care Team Providers Care Wide Piece Goods Inspector Name Role Phone Unavailable Primary Care Provider Unavailabl e Source Comments [facility] [employer],non-owned Affiliates and Associated Physician Practices is amultiple site organization consisting of ambulatory clinics and hospital sitesin [place], [place], [place] and [place]. This disclosure is being madepursuant to the Care Everywhere program and may not contain all information available regarding this patient. Last updated 18.[facility] [employer] Social History Tobacco Use Types Packs/Day Years Used Date Smoking Tobacco: Never Assessed Sex and Gender Information Value Date Recorded Sex Assigned at Not on file Gender Identity Not on file Sexual Orientation Not on file Last Filed Vital Signs Vital Sign Reading Time Taken Comments Blood Pressure 133/67 07/31/2016 7:32 AM DOUBLE CUTTER Pulse 91 07/31/2016 7:32 AM DOUBLE CUTTER Temperature 37 C (98.6 F) 07/31/2016 7:32 AM DOUBLE CUTTER Respiratory Rate 18 07/31/2016 7:32 AM DOUBLE CUTTER Oxygen Saturation 98% 07/31/2016 7:32 AM DOUBLE CUTTER Inhaled Oxygen Concentration - - Weight 129.3 kg (285 lb) 07/31/2016 7:32 AM DOUBLE CUTTER Height 170.2 cm (5' 7 ) 07/31/2016 7:32 AM DOUBLE CUTTER Body Mass Index 44.64 07/31/2016 7:32 AM DOUBLE CUTTER Plan of Treatment Health Maintenance Due Date [...]
--- OUTSIDE RECORDS SUMMARY | 2024-10-25 02:04 | XMS_ITS | Referral Summary ---
Author Organization [facility] Address [address] [place] [address] Care Team Providers Care Elementary Vocal Music Teacher Name Role Phone Unavailable Primary Care Provider Unavailabl e Source Comments [facility],non-owned Affiliates and Associated Physician Practices is amultiple site organization consisting of ambulatory clinics and hospital sitesin [place], [place], [place] and [place]. This disclosure is being madepursuant to the Care Everywhere program and may not contain all information available regarding this patient. Last updated 18.[facility] Social History Tobacco Use Types Packs/Day Years Used Date Smoking Tobacco: Never Assessed Sex and Gender Information Value Date Recorded Sex Assigned at Not on file Gender Identity Not on file Sexual Orientation Not on file Last Filed Vital Signs Vital Sign Reading Time Taken Comments Blood Pressure 133/67 07/31/2016 7:32 AM RN ADVICE Pulse 91 07/31/2016 7:32 AM RN ADVICE Temperature 37 C (98.6 F) 07/31/2016 7:32 AM RN ADVICE Respiratory Rate 18 07/31/2016 7:32 AM RN ADVICE Oxygen Saturation 98% 07/31/2016 7:32 AM RN ADVICE Inhaled Oxygen Concentration - - Weight 129.3 kg (285 lb) 07/31/2016 7:32 AM RN ADVICE Height 170.2 cm (5' 7 ) 07/31/2016 7:32 AM RN ADVICE Body Mass Index 44.64 07/31/2016 7:32 AM RN ADVICE Plan of Treatment Not on file
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
--- OUTSIDE RECORDS SUMMARY | 2024-10-25 02:05 | XMS_ITS | CONTINUITY OF CARE DOCUMENT ---
Author Name rose rose Address Unknown Organization [facility] Address [address] [place] [address] Phone [phone] Care Team Providers Care Clinical Applications Manager Name Role Phone Nando PUGH, iDego Unavailable EMERITA AUGUST Unavailable [phone] EMERITA AUGUST Unavailable [phone] INSURANCE PROVIDERS Payer name Policy type / Coverage type [employer] party ID [facility] MEDICA[facility] (2) Medicaid [id number]
--- OUTSIDE RECORDS SUMMARY | 2024-10-25 02:05 | XMS_ITS | Clinical Summary ---
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
[2024-10-25 02:36] VITALS: BP 149/108; PULSE 85; RESP 20; O2SAT 95
[2024-10-25 02:38] LABS: Basophils Absolute Auto 0.1 K/mm3 (0.0-0.1); Basophils Percent Auto 0.4 % (0.2-1.2); Eosinophils Absolute Auto 0.2 K/mm3 (0-0.3); Eosinophils Percent Auto 1.5 % (0-4.4); Hematocrit 44.3 % (42.0-52.0); Hemoglobin 14.8 g/dL (14.0-18.0); Immature Granulocyte Absolute 0.04 K/mm3 (0.00-0.031); Immature Granulocyte Percent A 0.3 % (0-0.5); Lymphocytes Percent Auto 10.3 % (18.3-44.2); Mean Corpuscular HGB Conc 33.4 g/dl (32-36); Mean Corpuscular Hemoglobin 27.8 pg (26-34); Mean Corpuscular Volume 83.1 fl (80-100); Mean Platelet Volume 10.1 fl (7.4-10.4); Monocytes Absolute Auto 0.9 K/mm3 (0.1-0.6); Monocytes Percent Auto 6.9 % (2.6-8.5); Neutrophils Percent Auto 80.6 % (45.5-73.1); Platelet Count Result 269 k/mm3 (150-375); Red Blood Count 5.33 M/mm3 (4.6-6.20); Red Cell Distribution Width 14.8 % (11.5-14.5); White Blood Count 13.6 K/mm3 (4.5-10.0)
[2024-10-25 02:50] LABS: Alanine Aminotransferase 23 U/L (6-50); Albumin Level 4.4 g/dL (3.5-5.1); Alkaline Phosphatase 78 U/L (38-126); Anion Gap 13 mmol/L (4-12); Aspartate Amino Transferase 17 U/L (17-59); Bilirubin,Total 0.8 mg/dL (0.2-1.3); Blood Urea Nitrogen 11 mg/dL (9-20); Calcium 9.1 mg/dL (8.4-10.2); Carbon Dioxide 23 mmol/L (22-30); Chloride 102 mmol/L (98-107); Estimated CRCL calculation 120 ml/min; Estimated Glomerular Filt Rate > 60; Glucose 127 mg/dL (65-110); Lipase 117 U/L (23-300); Potassium 3.9 mmol/L (3.4-5.0); Sodium 138 mmol/L (137-145)
--- NOTE | 2024-10-25 02:53 | ED.ABDPAIN ---
HPI - Abdominal Pain General Chief Complaint: Abdominal Pain Stated Complaint: abd pain Time Seen by Provider: 10/25/24 01:32 History of Present Illness HPI narrative: Patient is a 34-year-old male who presents emergency department this evening complaining of abdominal pain across his mid abdomen and down to his left lower quadrant. Patient admits to a history of diverticulitis and states that he has been seen our facility 2 times in the past few years both x4 diverticulitis. Patient states that this feels very similar to his diverticulitis. Denies any nausea, vomiting or diarrhea. Any recent illness, any fevers or chills. Patient states that when he 1st arrived to the emergency department he was in moderate pain but right now he is resting comfortably stating that the pain has significantly improved. Denies any additional symptoms or concerns at this time. Related Data Home Medications ?Medication ?Instructions ?Recorded ?Confirmed ?Last Taken ?Type bupropion HCl 300 mg 24 hr tablet, mg PO 05/10/22 07/23/22 Unknown History extended release calcitriol 0.25 mcg capsule mcg 05/10/22 07/23/22 Unknown History dulaglutide 0.75 mg/0.5 mL mg subcut 05/10/22 07/23/22 Unknown History subcutaneous pen injector (Trulicity) duloxetine 60 mg capsule,delayed mg PO 05/10/22 07/23/22 Unknown History release losartan 25 mg tablet mg 05/10/22 07/23/22 Unknown History Allergies Allergy/AdvReac Type Severity Reaction Status Date / Time No Known Allergies Allergy Verified 01/11/23 16:06 Review of Systems Review of Systems: All systems are reviewed and are negative unless stated otherwise in the HPI. [facility] Past Medical History Medical History Hematochezia Diverticulitis large intestine Leukocytosis LLQ pain Obesity (BMI 35.0-39.9 without comorbidity) Healthy adult male Surgical History Surgical History No history of previous surgery Family History Family History Grandparent Diabetes mellitus Coronary artery disease involving coronary bypass graft Mother Hypertension Grandparent Bladder cancer Social History Social History Smoking status: Current every day smoker Tobacco type: e-cigarettes/vaping Second hand tobacco smoke exposure: Yes Additional smoking assessment comments: patient vapes Alcohol intake: current Substance use: never Substance use type: does not use Last use: rarely drinks alcohol Living arrangements: with family Gender identity (if verbalized by the patient): Male Spiritual care concerns: No Exam Narrative: General: Alert, awake, afebrile, in no acute distress, obese. HEENT: PERRL, no rhinorrhea, no post nasal drip, oropharynx clear. Neck: Trachea midline, no JVD, no lymphadenopathy. Cardiovascular: Regular rate and rhythm, no murmurs, rubs or gallops, no peripheral edema. Respiratory: Clear to auscultation bilaterally, no tachypnea, no wheezing, no rhonchi, no rubs, no respiratory distress. Abdomen: Soft, nontender, nondistended, no rebound, no guarding, no peritoneal signs. Musculoskeletal: No joint swelling or deformity, normal muscle tone. Skin: No rashes or petechia, no signs of infection. Psychiatric: Alert and oriented, normal behavior and judgment for situation. Neurological: Alert and oriented to person, place, and time. Follows all commands. No focal deficits, speech is clear and fluent. Course Vital Signs Vital signs: Vital Signs Temperature 98.1 F 10/25/24 00:13 Pulse Rate 93 10/25/24 00:13 Respiratory Rate 16 10/25/24 00:13 Blood Pressure 166/122 H 10/25/24 00:13 Pulse Oximetry 97 10/25/24 00:13 Oxygen Delivery Room Air 10/25/24 00:13 Temperature 98.1 F 10/25/24 00:13 Pulse Rate 85 10/25/24 02:36 Respiratory Rate 20 10/25/24 02:36 Blood Pressure 149/108 H 10/25/24 02:36 Pulse Oximetry 95 10/25/24 02:36 Oxygen Delivery Room Air 10/25/24 00:13 MDM - Abdominal Pain MDM Narrative Medical decision making narrative: The patient was evaluated by myself in the emergency department. History is obtained from patient who is an independent historian and physical exam was performed. External medical records were reviewed at this time. IV was established and pertinent tests were ordered. Patient was administered 4 mg of IV morphine for and 4 mg of IV Zofran for nausea. Patient was also administered 1 L IV fluid bolus with normal saline. Laboratory results obtained revealing a leukocytosis of 13.6, otherwise unremarkable. Urinalysis revealed trace ketones otherwise unremarkable. Imaging studies obtained included CT abdomen and pelvis with IV contrast which was independently interpreted by me revealing focal wall thickening and inflammation with colonic diverticula compatible with acute diverticulitis, no evidence of perforation or abscess formation. Possible gallbladder inflammation. Patient was informed of these findings at bedside, patient great does not have any along his right upper quadrant, denies any history of gallstones as far as he is aware. Patient's liver enzymes and bilirubin noted to be within normal limits. Patient was informed that if he does develop right upper quadrant pain in the near future, does could be due to his gallbladder. Did recommend obtaining an outpatient right upper quadrant ultrasound and patient is agreeable with this plan. Initial dose of antibiotics for patient's diverticulitis were administered in the emergency department, 500 mg of oral Flagyl and 500 mg of oral Cipro. Medication profile and side effects were discussed with the patient at this time, including drug interactions with his duloxetine which he takes daily. Patient was informed that he will be taking both antibiotics for 10 days and instructed to take the duloxetine every other day starting on day 5 and patient is in agreement. Differential diagnosis considerations include bowel obstruction, pancreatitis, cholecystitis, diverticulitis and appendicitis. Comorbidities impacting this visit include history of diverticulitis. I have evaluated and discussed social determinants of health with the patient that could potentially impact subsequent diagnosis and treatment plans. On repeat assessment of the patient, reevaluation revealed that the patient is doing well and is in no acute distress. Patient symptoms have improved since he arrived to our emergency department. Repeat vital signs were all reviewed and noted to be stable. Differential diagnosis and treatment plan were discussed with the patient at bedside. Patient agrees with discussion and after shared medical decision making agrees with discharge. All questions were answered to the patient's satisfaction. Patient will follow up with his PCP in 3-5 days. Scripts for Cipro and flagyl were sent to patients pharmacy to take as prescribed. Patient was provided with strict return precautions and instructed to return to the emergency department if any new or worsening symptoms develop. The patient was discharged in stable condition. Lab Data 10/25/24 02:31 10/25/24 02:31 Labs: Lab Results 10/25/24 Range/Units 02:31 WBC 13.6 H (4.5-10.0) K/mm3 RBC 5.33 (4.6-6.20) M/mm3 Hgb 14.8 (14.0-18.0) g/dL Hct 44.3 (42.0-52.0) % MCV 83.1 (80-100) fl MCH 27.8 (26-34) pg MCHC 33.4 (32-36) g/dl RDW 14.8 H (11.5-14.5) % Plt Count 269 (150-375) k/mm3 MPV 10.1 (7.4-10.4) fl Immature Gran % (Auto) 0.3 (0-0.5) % Neut % (Auto) 80.6 H (45.5-73.1) % Lymph % (Auto) 10.3 L (18.3-44.2) % [place] % (Auto) 6.9 (2.6-8.5) % Eos % (Auto) 1.5 (0-4.4) % Baso % (Auto) 0.4 (0.2-1.2) % Lymph # (Auto) 1.40 (0.9-3.2) K/mm3 [place] # (Auto) 0.9 H (0.1-0.6) K/mm3 Eos # (Auto) 0.2 (0-0.3) K/mm3 Baso # (Auto) 0.1 (0.0-0.1) K/mm3 Abs Immat Gran (auto) 0.04 H (0.00-0.031) K/mm3 Absolute Neuts (auto) 11.0 H (1.3-6.7) K/mm3 Absolute Nucleated RBC 0.000 (0.0-0.012) K/mm3 Nucleated RBC % 0.0 (0.0-0.2) % Sodium 138 (137-145) mmol/L Potassium 3.9 (3.4-5.0) mmol/L Chloride 102 (98-107) mmol/L Carbon Dioxide 23 (22-30) mmol/L Anion Gap 13 H (4-12) mmol/L BUN 11 (9-20) mg/dL Creatinine 1.07 (0.7-1.3) mg/dL Estim Creat Clear Calc 120 ml/min Estimated GFR > 60 (59 - ) Glucose 127 H (65-110) mg/dL Calcium 9.1 (8.4-10.2) mg/dL Total Bilirubin 0.8 (0.2-1.3) mg/dL AST 17 (17-59) U/L ALT 23 (6-50) U/L Alkaline Phosphatase 78 (38-126) U/L Total Protein 8.0 (6.3-8.2) g/dL Albumin 4.4 (3.5-5.1) g/dL Lipase 117 (23-300) U/L Urine Color Dark yellow (Yellow) Urine Appearance Cloudy H (Clear) Urine pH 5.5 (5.0-9.0) Ur Specific [place] 1.036 H (1.001-1.035) Urine Protein 4+ H (Negative) mg/dL Urine Glucose (UA) Negative (Negative) mg/dL Urine Ketones Trace H (Negative) mg/dL Ur Blood (Man) Negative (Negative) Urine Nitrate Negative (Negative) Urine Bilirubin 1+ H (Negative) Urine Urobilinogen 1.0 (<2.0) mg/dL Add Ur Microanalysis Reviewed Leukocyte Esterase Rfl Negative (Negative) LITTLE/UL Urine RBC 6-10 H (0-2) /hpf Urine WBC 6-10 H (0-3) /hpf Ur Squamous Epith Cells Occasional (Few) /hpf Urine Bacteria None seen /hpf Urine Casts >20 Hyaline Casts Present (None) /lpf Urine Mucus Present /lpf Discharge Plan Discharge Clinical Impression: Diverticulitis large intestine Patient Disposition: Home, Self-Care Condition: Improved Instructions: Antibiotic Form, Diverticulitis (DC) Additional Instructions: Please take the prescribed antibiotics as instructed for your diverticulitis. You will take both antibiotics twice every day for the next 10 days. Return to the emergency department if any new or worsening symptoms develop. Follow-up with your family doctor within the next 3-5 days. Patient Language: Ukrainian Prescriptions: New ciprofloxacin HCl 500 mg tablet 500 mg PO Q12H 10 Days Qty: 20 0RF metronidazole 500 mg tablet 500 mg PO BID 10 Days Qty: 20 0RF No Action losartan 25 mg tablet calcitriol 0.25 mcg capsule bupropion HCl 300 mg tablet extended release 24 hr PO duloxetine 60 mg capsule,delayed release(DR/EC) PO Trulicity 0.75 mg/0.5 mL pen injector SUBCUT amoxicillin-pot clavulanate 875-125 mg tablet 1 tablet PO Q12H Qty: 14 0RF ondansetron 4 mg tablet,disintegrating 4 mg PO Q8H PRN (Reason: nausea and vomiting) Qty: 14 0RF ondansetron 4 mg tablet,disintegrating 4 mg PO Q8H PRN (Reason: nausea and vomiting) Qty: 20 0RF Follow-up/Referrals: PHYSICIAN,AIRLINE RESERVATIONIST [Primary Care Provider] - Andrei Lynne MD [Physician] - 3 Days Time of Disposition: 04:34
[2024-10-25 02:54] LABS: Add Urine Microscopic? YES; Appearance Urine Cloudy (Clear); Bacteria Urine None Seen /hpf; Bilirubin Urine 1+ (Negative); Blood Urine Negative (Negative); Color Urine Dark Yellow (Yellow); Glucose Urine UA Negative (Negative); Hyaline Casts Urine Present /lpf; Ketones Urine Trace mg/dL (Negative); Leukocyte Esterase Ur Negative LEU/UL (Negative); Mucus Urine Present /lpf; Need Manual Microscopic Reviewed; Nitrate Urine Negative (Negative); Non Pathogenic Casts >20; Protein Urine 4+ mg/dL (Negative); Specific Grav Ur 1.036 (1.001-1.035); Squamous Epithelial Cell Urine Occasional /hpf (Few); pH Urine 5.5 (5.0-9.0)
[2024-10-25] MEDS: SODIUM CHLORIDE 0.9% IV 1,000 ML 999 ML IV CONT (03:32)
[2024-10-25] MEDS: CIPROFLOXACIN 500 MG TAB PO (04:47)
[2024-10-25] MEDS: MORPHINE SULFATE (*CRX) 4 MG/ML INJ IV PUSH (04:47)
[2024-10-25] MEDS: metroNIDAZOLE 500 MG TABLET PO (04:47)
[2024-10-25] MEDS: ONDANSETRON INJ 4 MG/2 ML VIAL IV PUSH (04:51)
== END 2024-10-25 05:00 | disposition home or self-care (01) ==
PROVIDERS: Emergency Provider Emergency Medicine
DX: K57.32 Diverticulitis of large intestine without perforation or abscess without bleeding (principal); E66.9 Obesity, unspecified; Z68.43 Body mass index [BMI] 50.0-59.9, adult; F17.290 Nicotine dependence, other tobacco product, uncomplicated; Z79.85 Long-term (current) use of injectable non-insulin antidiabetic drugs; Z79.899 Other long term (current) drug therapy
CPT/HCPCS: 36415; 74177; 80053; 81001; 83690; 85025; 87086; 96361; 96374; 96375; 99284; A9270; J2270; J2405; J7030; Q9967

== ENCOUNTER 2025-06-03 07:08 | Emergency (ER) | payer OTHER, SELFPAY ==
--- OUTSIDE RECORDS SUMMARY | 2024-10-01 08:40 | XMS_ITS ---
Author Organization [facility] Address [address] [place] [address] Care Team Providers Care Semiautomatic Stitcher Operator Name Role Phone Cecelia Agee Primary Care Provider REASON FOR VISIT LM to R/S - mlr 4 week Social History Sex Assigned At : Social History Observation Description Sex Assigned At Male Encounters Encounter Location Date Provider Diagnosis [address] [address] 10/01/2024 Cecelia Agee Plan Of Treatment No Information Progress Notes * Oscar CLEARYDOB: 0 (34 yo M)Acc No.[id number]:10/01/2024 UNLOCKED PROGRESS NOTE Patient: Oscar COPELAND Provider: REE Alvarenga, CUPOLA CHARGER INSULATION, SALES TEAM RECRUITER-C :1990 A ge:34 Y S ex:Male Date:10/01/2024 Address:[address] [place], [place] [id number] Subjective: * Chief Complaints: * 1 . LM to R/S - mlr 4 week. * Medical History: Objective: * Vitals: Assessment: Plan: * Treatment: * * Electronic signature of Leonor Agee , [id number] on 06/03/2025 at 08:16 AM CDT Sign off status: Pending * Provider: REE Alvarenga, [employer], SALES TEAM RECRUITER-C Date: 0 10/01/2024 Generated for Printi ng/Faxing/eTransmitting on: 1 08:16 AM CDT
[2025-06-03] VITALS (7 sets, daily range): BP systolic 132–151; BP diastolic 79–87; PULSE 74–104; RESP 15–20; TEMP 36.3; O2SAT 95–100
--- NOTE | ~2025-06-03 | CT_ITS ---
CT abdomen pelvis w con Clinical History: lower AP . Comparison: 10/25/2024 Technique: Axial images lung bases to symphysis pubis IV contrast information not listed in PACS Coronal, sagittal reformats CT images acquired with automatic exposure control for dose reduction DLP: 1645 mGy-cm Findings: Lung bases: Clear. Visualized heart and pericardium: Unremarkable. Liver: Unremarkable. Gallbladder: Unremarkable. Spleen: Unremarkable. Pancreas: Unremarkable. Adrenal glands: Unremarkable. Kidneys: Right kidney- No hydronephrosis. No renal stones. Left kidney- No hydronephrosis. No renal stones. Distal esophagus/stomach: Unremarkable. Small bowel loops: Normal caliber and wall thickness. Colon: Diverticula. Trace pericolonic inflammation left lower quadrant. Trace wall thickening left lower quadrant loops. Normal RLQ appendix. Nodes: No enlarged nodes. Peritoneum: No ascites. No free air. Urinary bladder: Unremarkable. Prostate: Unremarkable. Bones: No acute bony abnormality. Soft tissues: Small umbilical hernia with fat. Aorta: No aneurysm or dissection. IVC: Unremarkable. Main portal vein/SMV/splenic vein: Patent. IMPRESSION: 1. Trace left lower quadrant diverticulitis. Reviewed, dictated and finalized at location R.
[2025-06-03 07:43] LABS: Hematocrit 42.5 % (42.0-52.0); Hemoglobin 13.9 g/dL (14.0-18.0); Immature Granulocyte Percent A 0.2 % (0-0.5); Lymphocytes Absolute Auto 1.86 K/mm3 (0.9-3.2); Mean Corpuscular HGB Conc 32.7 g/dl (32-36); Mean Corpuscular Hemoglobin 28.1 pg (26-34); Mean Corpuscular Volume 85.9 fl (80-100); Nucleated Red Blood Cells Absolute Auto 0.000 K/mm3 (0.0-0.012); Nucleated Red Blood Cells Perc 0.0 % (0.0-0.2); Platelet Count Result 289 k/mm3 (150-375); Red Blood Count 4.95 M/mm3 (4.6-6.20); White Blood Count 12.5 K/mm3 (4.5-10.0)
[2025-06-03] MEDS: PROMETHAZINE HCL 25 MG/ML AMPUL 12.5 MG IV PUSH (07:45)
[2025-06-03] MEDS: SODIUM CHLORIDE 0.9% IV 1,000 ML 999 ML IV CONT (07:45)
--- NOTE | 2025-06-03 07:47 | ED_ITS ---
HPI - Nausea/Vomiting/Diarrhea General Chief complaint: Nausea/Vomiting/Diarrhea Stated complaint: n/v/d Time Seen by Provider: 06/03/25 07:29 History of Present Illness HPI Narrative: Patient is a 34-year-old male who presents to the ER with periumbilical pain and cramping. Began early in the morning at 3:00 a.m.. Associated with diarrhea and vomiting. Has history of diverticulitis and feels like this is similar. No fevers or chills. No alleviating factors. He did try Zofran. Related Data Home Medications ?Medication ?Instructions ?Recorded ?Confirmed ?Last Taken ?Type bupropion HCl 300 mg 24 hr tablet, mg PO 05/10/22 12/0 05/06 Unknown History extended release calcitriol 0.25 mcg capsule mcg 05/10/22 07/23/22 Unkn own History dulaglutide 0.75 mg/0.5 mL mg subcut 05/10/22 07/23/22 Unknown History subcutaneous pen injector (Trulicity) duloxetine 60 mg capsule,delayed mg PO 05/10/22 Unknown History release losartan 25 mg tablet mg 05/10/22 07/23/22 Unknown History Allergies Allergy/AdvReac Type Severity Reaction Status Date / Time No Known Allergies Allergy Verified 06/03/25 07:20 Review of Systems 2 Review of Systems: All systems reviewed & are unremarkable except as noted in HPI and below Constitutional: Constitutional: Reports no additional constitutional complaints Cardiovascular: Cardiovascular: Reports no additional cardiovascular complaints Respiratory: Respiratory: Reports no additional respiratory complaints Gastrointestinal: Gastrointestinal: Reports no additional gastrointestinal complaints Genitourinary: Genitourinary: Reports no additional male genitourinary complaints PMFSH Past Medical History Medical History Hematochezia Diverticulitis large intestine Leukocytosis LLQ pain Obesity (BMI 35.0-39.9 without comorbidity) Healthy adult male Surgical History Surgical History No history of previous surgery Family History Family History Grandparent Diabetes mellitus Coronary artery disease involving coronary bypass graft Mother Hypertension Grandparent Bladder cancer Social History Social History Smoking status: Current every day smoker Tobacco type: e-cigarettes/vaping Second hand tobacco smoke exposure: Yes Additional smoking assessment comments: patient vapes Alcohol intake: current Substance use: never Substance use type: does not use Last use: rarely drinks alcohol Living arrangements: with family Gender identity (if verbalized by the patient): Male Spiritual care concerns: No Exam 2 Narrative: GENERAL: Well-appearing, morbidly obese, and in no acute distress. HEAD: Normocephalic, atraumatic. ENT: Mucous membranes moist. CHEST: Clear to auscultation. No respiratory distress. HEART: Regular rate and rhythm. Normal peripheral pulses. ABDOMEN: Soft, nontender, nondistended. EXTREMITIES: Normal range of motion. No edema. SKIN: Warm, dry, no rash. NEURO: Alert and oriented x3. PSYCH: Normal mood and affect. Course Vital Signs Vital signs: Vital Signs Temperature 97.4 F L 06/03/25 07:15 Pulse Rate 85 06/03/25 07:15 Respiratory Rate 20 06/03/25 07:15 Blood Pressure 139/79 06/03/25 07:15 Pulse Oximetry 97 06/03/25 07:15 Oxygen Delivery Room Air 06/03/25 07:15 Temperature 97.4 F L 06/03/25 07:15 Pulse Rate 89 06/03/25 09:21 Respiratory Rate 15 06/03/25 09:21 Blood Pressure 151/79 H 06/03/25 09:21 Pulse Oximetry 100 06/03/25 09:21 Oxygen Delivery Room Air 06/03/25 07:15 MDM - Nausea/Vomiting/Diarrhea Lab Data 06/03/25 07:37 06/03/25 07:37 Labs: Lab Results 06/03/25 06/03/25 Range/Units 07:37 09:18 WBC 12.5 H (4.5-10.0) K/mm3 RBC 4.95 (4.6-6.20) M/mm3 Hgb 13.9 L (14.0-18.0) g/dL Hct 42.5 (42.0-52.0) % MCV 85.9 (80-100) fl MCH 28.1 (26-34) pg MCHC 32.7 (32-36) g/dl RDW 13.9 (11.5-14.5) % Plt Count 289 (150-375) k/mm3 MPV 9.6 (7.4-10.4) fl Immature Gran % (Auto) 0.2 (0-0.5) % Neut % (Auto) 78.3 H (45.5-73.1) % Lymph % (Auto) 14.9 L (18.3-44.2) % Hayes % (Auto) 5.3 (2.6-8.5) % Eos % (Auto) 1.0 (0-4.4) % Baso % (Auto) 0.3 (0.2-1.2) % Lymph # (Auto) 1.86 (0.9-3.2) K/mm3 Hayes # (Auto) 0.7 H (0.1-0.6) K/mm3 Eos # (Auto) 0.1 (0-0.3) K/mm3 Baso # (Auto) 0.0 (0.0-0.1) K/mm3 Abs Immat Gran (auto) 0.03 (0.00-0.031) K/mm3 Absolute Neuts (auto) 9.8 H (1.3-6.7) K/mm3 Absolute Nucleated RBC 0.000 (0.0-0.012) K/mm3 Nucleated RBC % 0.0 (0.0-0.2) % Sodium 135 L (137-145) mmol/L Potassium 4.1 (3.4-5.0) mmol/L Chloride 101 (98-107) mmol/L Carbon Dioxide 25 (22-30) mmol/L Anion Gap 9 (4-12) mmol/L BUN 25 H D (9-20) mg/dL Creatinine 1.59 H (0.7-1.3) mg/dL Estim Creat Clear Calc 81 ml/min Estimated GFR 50 L (59 - ) Glucose 115 H (65-110) mg/dL Calcium 8.9 (8.4-10.2) mg/dL Total Bilirubin 0.6 (0.2-1.3) mg/dL AST 34 (17-59) U/L ALT 44 (6-50) U/L Alkaline Phosphatase 71 (38-126) U/L Total Protein 8.0 (6.3-8.2) g/dL Albumin 4.4 (3.5-5.1) g/dL Lipase 112 (23-300) U/L Urine Color Yellow (Yellow) Urine Appearance Clear (Clear) Urine pH 5.5 (5.0-9.0) Ur Specific [place] 1.018 (1.001-1.035) Urine Protein Negative (Negative) mg/dL Urine Glucose (UA) Negative (Negative) mg/dL Urine Ketones Negative (Negative) mg/dL Ur Blood (Man) Negative (Negative) Urine Nitrate Negative (Negative) Urine Bilirubin Negative (Negative) Urine Urobilinogen 0.2 (<2.0) mg/dL Leukocyte Esterase Rfl Negative (Negative) LITTLE/UL Imaging Data Radiologist's impression: ITS Impressions Abdomen/Pelvis CT 06/03/25 09:12 IMPRESSION: 1. Trace left lower quadrant diverticulitis. Discharge Plan Discharge Clinical Impression: Diverticulitis large intestine Patient Disposition: Home Condition: Stable Instructions: Diverticulitis (ED) Additional Instructions: Return to the emergency department if you develop severe abdominal pain, severe nausea and vomiting to the point where you are unable to keep down fluids, if you develop chest pain or difficulty breathing, blood in your stool, dizziness or fainting, or if you develop any other new or concerning symptoms as these could be signs of more serious medical illness. Try to stay well hydrated. Patient Language: Chilean Prescriptions: New amoxicillin-pot clavulanate 875-125 mg tablet 1 tablet PO TID Qty: 21 0RF No Action losartan 25 mg tablet calcitriol 0.25 mcg capsule bupropion HCl 300 mg tablet extended release 24 hr PO duloxetine 60 mg capsule,delayed release(DR/EC) PO Trulicity 0.75 mg/0.5 mL pen injector SUBCUT amoxicillin-pot clavulanate 875-125 mg tablet 1 tablet PO Q12H Qty: 14 0RF ondansetron 4 mg tablet,disintegrating 4 mg PO Q8H PRN (Reason: nausea and vomiting) Qty: 14 0RF ciprofloxacin HCl 500 mg tablet 500 mg PO Q12H 10 Days Qty: 20 0RF metronidazole 500 mg tablet 500 mg PO BID 10 Days Qty: 20 0RF ondansetron 4 mg tablet,disintegrating 4 mg PO Q8H PRN (Reason: nausea and vomiting) Qty: 20 0RF Follow-up/Referrals: PHYSICIAN,SUSTAINABILITY PURCHASING AGENT [Non-Staff, Internal Medicine] Andrei Lynne MD [Primary Care Provider, Family Practice]
[2025-06-03 07:52] LABS: Alanine Aminotransferase 44 U/L (6-50); Albumin Level 4.4 g/dL (3.5-5.1); Alkaline Phosphatase 71 U/L (38-126); Anion Gap 9 mmol/L (4-12); Aspartate Amino Transferase 34 U/L (17-59); Bilirubin,Total 0.6 mg/dL (0.2-1.3); Blood Urea Nitrogen 25 mg/dL (9-20); Calcium 8.9 mg/dL (8.4-10.2); Carbon Dioxide 25 mmol/L (22-30); Chloride 101 mmol/L (98-107); Estimated CRCL calculation 81 ml/min; Estimated Glomerular Filt Rate 50; Glucose 115 mg/dL (65-110); Lipase 112 U/L (23-300); Potassium 4.1 mmol/L (3.4-5.0); Sodium 135 mmol/L (137-145); Total Protein 8.0 g/dL (6.3-8.2)
--- OUTSIDE RECORDS SUMMARY | 2025-06-03 08:16 | XMS_ITS | Clinical Summary ---
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 This disclosure is being madepursuant to the Care Everywhere program and may not contain all information available regarding this patient. 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 Gender Identity Not on file Sexual Orientation Not on file Last Filed Vital Signs Vital Sign Reading Time Taken Comments Blood Pressure 133/67 07/31/2016 7:32 AM CHAINMAN Pulse 91 07/31/2016 7:32 AM CHAINMAN Temperature 37 C (98.6 F) 07/31/2016 7:32 AM CHAINMAN Respiratory Rate 18 07/31/2016 7:32 AM CHAINMAN Oxygen Saturation 98% 07/31/2016 7:32 AM CHAINMAN Inhaled Oxygen Concentration - - Weight 129.3 kg (285 lb) 07/31/2016 7:32 AM CHAINMAN Height 170.2 cm (5' 7) 07/31/2016 7:32 AM CHAINMAN Body Mass Index 44.64 07/31/2016 7:32 AM CHAINMAN Plan of Treatment Health Maintenance Due Date Last Done Comments HIV SCREENING 2005 HEPATITIS C SCREENING 06/11/2008 DTAP/TDAP/TD VACCINES (1 - Tdap) 2009 HEPATITIS B VACCINE (1 of 3 - 19+ 3-dose series) 2009 HPV VACCINE (1 - 3-dose SCDM series) 2017 DEPRESSION SCREENING 08/15/2024 COVID-19 VACCINE (1 - 2023-2 5 season) 2025 INFLUENZA VACCINE (#1) 2025 ZOSTER VACCINE (1 of 2) 2040 HIB [...]
--- OUTSIDE RECORDS SUMMARY | 2025-06-03 08:16 | XMS_ITS | Patient Health Record ---
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 Role Phone Cecelia Agee Primary Care Provider Allergies No Known Allergies Results Component Value Reference Range Notes 14 Panel Urine Drug Screen ( Not yet reviewed by provider) Interpretation: Performing Lab: Notes/Report: THC neg ANITHA neg MOP (OPI) neg AMP pos MET neg BAR neg BZO neg MDMA neg MTD neg OXY neg PCP neg BUP neg TCA neg FTY neg 12 Panel Urine Drug Screen Reviewed date:10/22/2024 10:15:49 AM Interpretation: Performing Lab: Notes/Report: THC pos ANITHA neg MOP (OPI) neg AMP neg MET neg BAR neg BZO neg MDMA neg MTD neg OXY neg PCP neg BUP neg Reason For Referral No Information Medications Medication SIG (Take, Route, Frequency, Duration) Notes Start Date End Date Status Losartan Potassium 100 MG 1 tablet Orally Once a day Active Vyvanse 40 MG 1 capsule in the morning Orally Once a day; Duration: 30 days 06/11/2025 Active Vyvanse 40 MG 1 capsule in the morning Orally Once a day; Duration: 30 days 05/14/2025 Active DULoxetine HCl 60 MG 1 capsule Orally On ce a day; Duration: 30 days Active buPROPion HCl ER (XL) 300 MG 1 tablet in the morning Orally Once a day; Duration: 30 days Active Vyvanse 40 MG 1 capsule in the morning Orally Once a day; Duration: 30 days 07/09/2025 Active Ozempic once a week Active Rosuvastatin Calcium 10 MG 1 tablet Orally Once a day Active Social History Tobacco Use: Social History Observation Description Date Details (start date - stop date) Unknown Sex Assigned At : Social History Observation Description Sex Assigned At Male Tobacco Control (Standard) Question Answer Notes Additional Findings: Tobacco non-user Ne nallely chewed tobacco,Does not use moist powdered tobacco,Never used moist powdered tobacco Tobacco use: Uses tobacco in other forms Additional Findings: Tobacco user e-cigarette Problems Problem Type SNOMED Code ICD Code Onset Dates Problem Status W/U Status Risk Notes Problem Generalized anxiety disorder (60257066) Generalized anxiety disorder (F41.1) Active confirmed Problem Major depression (359601154) Major depression (F32.9) Active confirmed Problem Overweight (817808019) Over weight (E66.3) Active confirmed Problem Obese (590055343) Obese (E66.9) Active confirme d Problem Attention deficit hyperactivity disorder (181953745) Adult ADHD (F90.9) Active confirmed Vital Signs Heart Rate 100 /min 05/14/2025 Temperature 98.5 degrees Fahrenheit 10/22/2024 Respiratory Rate 16 /min 05/14/2025 Blood pressure diastolic 72 mm Hg 05/14/2025 Oximetry 98 % 05/14/2025 Height 67 in 05/14/2025 Blood pressure systolic 118 mm Hg 05/14/2025 Weight 317.6 lbs 05/14/2025 BMI 49.74 kg/m2 05/14/2025 Encounters Encounter Location Date Provider Diagnosis [facility] [address] [place] [address] 09/04/2024 Cecelia Agee Generalized anxiety disorder F41.1 ; Major depression F32.9 ; Adult ADHD F90.9 ; Obese E66.9 and Medication monitoring encounter Z51.[address] [address] 10/22/2024 Cecelia Agee Nutritional counseling Z71.3 ; Generalized anxiety disorder F41.1 ; Major depression F32.9 ; Adult ADHD F90.9 ; Obese E66.9 and Medication monitoring encounter Z51.[address] [address] 02/04/2025 Cecelia Agee Nutritional counseling Z71.3 ; Generalized anxiety disorder F41.1 ; Major depression F32.9 ; Adult ADHD F90.9 ; Obese E66.9 and Medication monitoring encounter Z51.[address] [place] [address] 03/13/2025 Cecelia Agee Nutritional counseling Z71.3 ; Generalized anxiety disorder F41.1 ; Major depression F32.9 ; Adult ADHD F90.9 ; Obese E66.9 and Medication monitoring encounter Z51.81 [facility] [address] [place] [address] 05/14/2025 Cecelia Agee Over weight E66.3 ; Nutritional counseling Z71.3 ; Generalized anxiety disorder F41.1 ; Major depression F32.9 ; Adult ADHD F90.9 ; Obese E66.9 and Medication monitoring encounter Z51.[address] [address] 09/04/2024 Cecelia Agee [address] [address] 10/22/2024 Cecelia Agee [address] [address] 12/19/2024 Cecelia Agee Adult ADHD F90.[address] [address] 04/21/2025 Cecelia Agee Adult ADHD F90.9 ; Major depression F32.9 and Generalized anxiety disorder F41.1 Assessments Encounter Date Diagnosis (ICD Code) Assessment Notes Treatment Notes Treatment Clinical Notes Section Notes 09/04/2024 Generalized anxiety disorder (ICD-10 - F41.1) 10/22/2024 Nutritional counseling (ICD-10 - Z71.3) 12/19/2024 Adult ADHD (ICD-10 - F90.9) 02/04/2025 Nutritional counseling (ICD-10 - Z71.3) 03/13/2025 Nutritional counseling (ICD-10 - Z71.3) 04/21/2025 Adult ADHD (ICD-10 - F90.9) 05/14/2025 Over weight (ICD-10 - E66.3) 04/21/2025 Major depression (ICD-10 - F32.9) 05/14/2025 Nutritional counseling (ICD-10 - Z71.3) 03/13/2025 Generalized anxiety disorder (ICD-10 - F41.1) 02/04/2025 Generalized anxiety disorder (ICD-10 - F41.1) 10/22/2024 Generalized anxiety disorder (ICD-10 - F41.1) [...] if/as needed. PDMP checked without concerns. 10/22/2024 Major depression (ICD-10 - F32.9) Client [...] client to resume his CPAP at night. 02/04/2025 Major depression (ICD-10 - F32.9) PDMP checked without concerns. Client was on Cymbalta 60mg, Bupropion XL 300mg, and Vyvanse 40mg. Client was doing well on these medications without SE. 03/13/2025 Major depression (ICD-10 - F32.9) PDMP checked without concerns. Client was on Cymbalta 60mg, Bupropion XL 300mg, and Vyvanse 40mg. Client was doing well on these medications without SE. Increasing doses back to these doses and monitor. 05/14/2025 Generalized anxiety disorder (ICD-10 - F41.1) 04/21/2025 Generalized anxiety disorder (ICD-10 - F41.1) 03/13/2025 Adult ADHD (ICD-10 - F90.9) Stimulant education - reviewed risks including HTN, cardiac arrhythmias, sudden , stroke, seizures, clint, wt loss, insomnia, and harm. Client has tried Strattera, is not wanting to try Adderall due to addiction potential, started on Vyvanse and doing well. 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 PDMP checked without concerns. 05/14/2025 Major depression (ICD-10 - F32.9) PDMP checked without concerns. Client was on Cymbalta 60mg, Bupropion XL 300mg, and Vyvanse 40mg. Client was doing well on these medications without SE. Increasing doses back to these doses and monitor. 10/22/2024 Adult ADHD (ICD-10 - F90.9) Stimulant education - reviewed risks including HTN, cardiac arrhythmias, sudden , stroke, seizures, clint, wt loss, insomnia, and harm. Client has tried Strattera, is not wanting to try Adderall due to addiction potential, started on Vyvanse and doing well. 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 PDMP checked without concerns. 02/04/2025 Adult ADHD (ICD-10 - F90.9) Stimulant education - reviewed risks including HTN, cardiac arrhythmias, sudden , stroke, seizures, clint, wt loss, insomnia, and harm. Client has tried Strattera, is not wanting to try Adderall due to addiction potential, started on Vyvanse and doing well. 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 PDMP checked without concerns. 09/04/2024 Obese (ICD-10 - E66.9) Encouraged healthy diet, exercise. Continue Ozempic. 09/04/2024 Medication monitoring encounter (ICD-10 - Z51.81) 02/04/2025 Obese (ICD-10 - E66.9) Encouraged healthy diet, exercise. Continue Ozempic. 10/22/2024 Obese (ICD-10 - E66.9) Encouraged healthy diet, exercise. Continue Ozempic. 03/13/2025 Obese (ICD-10 - E66.9) Encouraged healthy diet, exercise. Continue Ozempic. 05/14/2025 Adult ADHD (ICD-10 - F90.9) Stimulant education - reviewed risks including HTN, cardiac arrhythmias, sudden , stroke, seizures, clint, wt loss, insomnia, and harm. Client has tried Strattera, is not wanting to try Adderall due to addiction potential, started on Vyvanse and doing well. 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 PDMP checked without concerns. 05/14/2025 Obese (ICD-10 - E66.9) Encouraged healthy diet, exercise. 03/13/2025 Medication monitoring encounter (ICD-10 - Z51.81) 10/22/2024 Medication monitoring encounter (ICD-10 - Z51.81) 02/04/2025 Medication monitoring encounter (ICD-10 - Z51.81) 05/14/2025 Medication monitoring encounter (ICD-10 - Z51.81) 09/04/2024 Other Reasons, potential benefits, potential risks, [...] May also contact the 24-hour crisis hotline ([facility]), refer to the closest emergency room or [...] May also contact the 24-hour crisis hotline ([facility]), refer to the closest emergency room or [...] of education, treatment plan and follow up. 02/04/2025 Other Reasons, potential benefits, potential risks, interactions [...] May also contact the 24-hour crisis hotline ([facility]), refer to the closest emergency room or [...] of education, treatment plan and follow up. 03/13/2025 Other Reasons, potential benefits, potential risks, interactions [...] May also contact the 24-hour crisis hotline ([facility]), refer to the closest emergency room or [...] assess appearance, affect, AIMS, or vital signs. 05/14/2025 Other Reasons, potential benefits, potential risks, interactions [...] May also contact the 24-hour crisis hotline ([facility]), refer to the closest emergency room or [...] plan and follow up. Plan Of Treatment Future Test Test Name Order Date 14 Panel Urine Drug Screen 05/14/2025 Insurance Providers Payer Name Payer Address Payer Phone Subscriber Number Group Number Insured Name Patient Relationship to Insured Coverage Start Date Coverage End Date [facility] Attn Claims Department [address] [place] [address] [id number] Oscar Kebede Self - patient is the insured 3 4 [facility] Attn Claims Department [address] [place] [address] [id number] Oscar Kebede Self - patient is the insured 3 4 Medical (General) History Medical History History ICD Code sleep apnea Hospitalization History Reason Date(Month/Year) sleep study diverticulitis 2020
--- OUTSIDE RECORDS SUMMARY | 2025-06-03 08:16 | XMS_ITS | Patient Health Record ---
Author Organization [facility] Address [address] [place] [id number] Reason For Referral No Information Medications Medication SIG (Take, Route, Frequency, Duration) Notes Start Date End Date Status Losartan Potassium 25 MG TAKE 1 TABLET B Y MOUTH EVERY DAY; Duration: 90 Active Calcitriol 0.25 MCG TAKE 1 CAPSULE BY MO UTH EVERY DAY; Duration: 30 Active Problems Problem Type SNOMED Code ICD Code Onset Dates Problem Status W/U Status Risk Notes Problem Secondary hyperparathyroidism (63324890) Secondary hyperparathyroid ism, not elsewhere classified (E21.1) Active confirmed Problem Essential hypertension (78170060) Essential (primary) hypertension (I10) Active confirmed Problem Chronic kidney disease stage 2 (110294143) Chronic kidney disease, stage 2 (mild) (N18.2) Active confirmed Problem Renal osteodystrophy (91247460) Renal osteodystrophy (N25.0) Active confirmed Problem Proteinuria (63202423) Other proteinuria (R80.8) Active confirmed Plan Of Treatment No Information
--- OUTSIDE RECORDS SUMMARY | 2025-06-03 08:17 | XMS_ITS | Clinical Summary ---
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
--- OUTSIDE RECORDS SUMMARY | 2025-06-03 08:17 | XMS_ITS | Data Portability ---
Author Organization [place] [facility], Main Office Address [address] [place] [address] Care Team Providers Care Support Service Tech Name Role Phone DANY RHOADES Primary Care Provider Assessment Encounter Date Assessment Date Assessment LastModified by Organization Details LastModified Time 01/24/2023 01/24/202302/19/22 Call office if worse, ER if life threatening illness RTC in 1month He voices understanding of plan and agrees Not available 01/24/2023 14:22:57 01/27/2023 01/27/2023 Spent [...] pavel Not available 01/27/2023 14:01:02 03/04/2023 03/04/2023 YEYO03/04/23 Call office if worse, ER if life [...] had a 11 minute TeleMedicine consultation via [employer] to discuss the following: [email or web address] Not available 03/29/2023 14:19:42 05/10/2023 05/10/2023 The [...] had a 12 minute TeleMedicine consultation via [employer] to discuss the following: Not available 05/10/2023 15:47:16 Plan of Treatment Reminders Order Date Submit Date Provider Last Modified By Organization Details Last Modified Time Details Appointments None recorded. Lab None recorded. Referral psychiatris t referral - adhd eval 2022 023 [email or web address] [facility], [address] [facility], [place], [address], 4 12:09:29 cardiologis t referral 2022 023 [email or web address] Robert Miner MD, [address] [facility], [facility] [address], [place], [address], 4 12:09:30 Procedures None recorded. Surgeries None recorded. Imaging None recorded. Medication Orders losartan 100 mg tablet 2022 023 [facility]armacy #[id number], [address], [place], [address], 3 16:35:12 losartan 100 mg tablet 2022 023 [facility]/Pharmacy #[id number], [address], [place], [address], 3 14:19:08 Patient TargetsNo targets recorded. Patient Instructions Encounter Date Encounter Id Patient Instructions Last Modified By Organization Details Last Modified Time 03/04/2023 [id number] INFLUENZA VACCIN E Next vaccination to be given fall of 2022 TD/TDAP Patient will get at local pharmacy/health department COLORECTAL SCREENING No screening necessary until age 45 DEPRESSION SCREENING Positive, History of depression, continue current medication BMI Obesity try to lose 10% of your body weight NUTRITION Continue healthy eating & exercise PHYSICAL ACTIVITY Need more activity minimum of 30-40 minutes of activity that causes mild breathlessness/day VISION Recommended today ALCOHOL USE No alcohol use TOBACCO USE current tobacco use Patient is not interested in smoking cessation at this time- Handout given SEXUALLY ACTIVE Yes, Patient is in monogamous relationship GLUCOSE SCREENING Not needed LIPID SCREENING Not needed [email or web address] Not available 03/04/2023 17:24:19 03/29/2023 [id number] Due to the COVID-19 (Novel Coronavirus) pandemic, it is within this context (and with the understanding that this method of patient encounter is in the patient s best interest as well as the health and safety of other patients and the public) that t elehealth is being provided for this patient encounter rather than a kwyv-qe-ezdu visit. This patient encounter is appropriate at [...] patient. [email or web address] Not available 03/29/2023 12:06:21 05/10/2023 [id number] Due to the COVID-19 (Novel Coronavirus) pandemic, it is within this context (and with the understanding that this method of patient encounter is in the patient s best interest as well as the health and safety of other patients and the public) that t elehealth is being provided for this patient encounter rather than a zgmp-wd-vbnc visit. This patient encounter is appropriate at [...] Rachel Julio, Internal Medicine, Encounter Date: 01/24/2023 [employer] Referral for Es sential hypertension Referring Physician: Rachel Julio, Internal Medicine, Encounter Date: 01/24/2023 Results Created Date Observation Date Name Description Value Unit Range Abnormal Flag Note LastModifiedBy Organization Detail LastModifiedTime 12/30/19 23 12/29/2022 PPD (charu fied prote in deriv ative ), skin test TB negati ve Not Available [facility] Internal [facility] [address] [facility], [facility] [address], [place], [address], 12/27/2022 10:12:22 01/12/20 23 01/11/2023 CT, abdom en + pelvi s, w/ contr ast No observ ation record ed. [address], [place], [address], 01/12/2023 13:58:48 11/08/19 25 10/25/2024 CT, abdom en + pelvi s, w/ contr ast No observ ation record ed. BARCODE Not Available 2024 15:09:08 12/20/19 25 12/18/2024 imagi ng inter preta tion No observ ation record ed. [email or web address] [facility] [address] [facility] [address], [place], [address], 05/30/2025 10:39:28 01/16/20 25 12/18/2024 imagi ng inter preta tion No observ ation record ed. [email or web address] [facility] [address] [place], [address], 05/30/2025 10:39:56 Result Notes None recorded. Problems Name Problem SNOMED Code Status Onset Date Resolution Date Notes Provider Name and Address Organization Details Recorded Time Proteinuria 93079369 Active 2021 Not Available [facility] 3 10:46:53 Vitamin D deficiency 92802801 Active 2021 Not Available [facility] 3 10:46:53 Diverticuliti s 456099836 Active 2021 Not Available [facility] 3 10:46:53 Hyperlipidemi a 63822488 Active 2022 Not Available [facility] 3 10:46:53 Unable to concentrate 28801552 Active 2022 Not Available [facility] 3 10:46:53 Mixed anxiety and depressive disorder 399637132 Active 2022 Not Available [facility] 3 10:46:53 Sleep apnea 30618816 Active 2022 Not Available [facility] 3 10:46:53 Obesity 113728604 Active 2022 Not Available [facility] 3 10:46:53 Nicotine dependence with current use 390519543 Active 2022 Not Available [facility] 3 10:46:53 Essential hypertension 75346536 Active 2022 Not Available [facility] 3 10:46:53 Prediabetes 035036529 Active 2022 Not Available [facility] 3 10:46:53 Obstructive sleep apnea syndrome 03922169 Active 2022 Not Available [facility] 3 10:46:53 Fatigue 47591291 Active 2022 Not Available [facility] 3 10:46:53 Notes:Medical History: Nicot ine dependence Anxiety/Depression Obesity with mild OSAHS, AHI = 8, 03/05/22, on CPAP Mixed hyperlipidemia Proteinuria PLMD Vit D deficiency Problem Notes None recorded. Medical Equipment None Reported. Allergies No known drug allergies Medications Name Sig Start Date Stop Date Status Note LastModified by Organization Details LastModified Time losartan 50 mg tablet TAKE 1 TABLET BY MOUTH EVERY DAY active Not Available Not Available No t Available carvedilo l 6.25 mg tablet TAKE 1 TABLET BY MOUTH TWICE A DAY WITH FOOD active Not Available Not Available No t Available carvedilo l 12.5 mg tablet TAKE 1 TABLET BY MOUTH TWICE A DAY WITH FOOD active Not Available Not Available No t Available nicotine 14 mg/24 hr daily transderm al patch APPLY 1 PATCH DAILY TO SKIN 11/07 completed Not Available Not Available Not Available clindamyc in HCl 300 mg capsule TAKE 1 CAPSULE BY MOUTH EVERY 8 HOURS FOR 5 DAYS. active Not Available Not Available No t Available cetirizin e 10 mg tablet TAKE 1 TABLET BY MOUTH EVERY DAY 01/19 completed Not Available Not Available Not Available ibuprofen 800 mg tablet TAKE 1 TABLET BY MOUTH TWICE A DAY FOR 10 DAYS 11/07 completed Not Available Not Available Not Available penicilli n V potassium 500 mg tablet TAKE 1 TABLET BY MOUTH FOUR TIMES A DAY UNTIL FINISHED active Not Available Not Available No t Available metronida zole 500 mg tablet TAKE 1 TABLET (500 MG) BY MOUTH TWICE A DAY FOR 10 DAYS active Not Available Not Available No t Available amlodipin e 5 mg tablet TAKE 1 TABLET BY MOUTH EVERY DAY active Not Available Not Available No t Available ciproflox acin 500 mg tablet TAKE 1 TABLET (500 MG) BY MOUTH EVERY 12 HOURS FOR 10 DAYS active Not Available Not Available No t Available amoxicill in 500 mg tablet TAKE 1 TABLET BY MOUTH THREE TIMES A DAY FOR 10 DAYS 11/07 completed Not Available Not Available Not Available amlodipin e 10 mg tablet TAKE 1 TABLET BY MOUTH EVERY DAY 11/07 completed Not Available Not Available Not Available losartan 25 mg tablet TAKE 1 TABLET BY MOUTH EVERY DAY 01/24 completed Not Available Not Available Not Available ergocalci ferol (vitamin D2) 1,250 mcg (50,000 unit) capsule TAKE 1 CAPSULE BY MOUTH ONE TIME PER WEEK active Not Available Not Available No t [...] HOURS NEEDED FOR NAUSEA AND VOMITING . 11/07 completed Not Available Not Available Not Available losartan 100 mg tablet TAKE 1 TABLET BY MOUTH EVERY DAY active Not Available Not Available No t Available fluticaso ne propionat e 50 mcg/actua tion nasal spray,poli pension INSTILL 1 SPRAY INTO EACH NOSTRIL TWICE DAILY 02/19 completed Not Available Not Available Not Available calcitrio l 0.25 mcg capsule TAKE 1 CAPSULE BY MOUTH EVERY DAY 11/07 completed Not Available Not Available Not Available amoxicill in 875 mg-potass ium clavulana te 125 mg tablet TAKE 1 TABLET BY MOUTH EVERY 12 HOURS 01/24 completed Not Available Not Available Not Available Strattera 40 mg capsule TAKE 1 CAPSULE BY MOUTH EVERY DAY IN THE MORNING FOR 30 DAYS 11/07 completed Not Available Not Available Not Available rosuvasta tin 5 mg tablet TAKE 1 TABLET BY MOUTH EVERY DAY active Not Available Not Available No t Available bupropion HCl XL 300 mg 24 hr tablet, extended release TAKE 1 TABLET BY MOUTH EVERY DAY 11/07 completed Not Available Not Available Not Available bupropion HCl XL 150 mg 24 hr tablet, extended release TAKE 1 TABLET BY MOUTH EVERY DAY IN THE MORNING FOR 30 DAYS active Not Available Not Available No t Available duloxetin e 30 mg capsule,d elayed release TAKE 1 CAPSULE BY MOUTH EVERY DAY 07/13 completed Not Available Not Available Not Available duloxetin e 60 mg capsule,d elayed release TAKE 1 CAPSULE BY MOUTH EVERY DAY 11/07 completed Not Available Not Available Not Available lisdexamf etamine 30 mg capsule TAKE 1 CAPSULE BY MOUTH EVERY DAY IN THE MORNING FOR 30 DAYS active Not Available Not Available No t Available Vyvanse 40 mg capsule TAKE 1 CAPSULE BY MOUTH EVERY DAY IN THE MORNING FOR 30 DAYS 11/07 completed Not Available Not Available Not Available Trulicity 1.5 mg/0.5 mL subcutane ous [...] 3mg Not Available Not Available Not Available duloxetin e 40 mg capsule,d elayed release TAKE 1 CAPSULE BY MOUTH EVERY DAY active Not Available Not Available No t Available ID NOW COVID-19 Test Kit DIRECTED 01/19 completed Not Available Not Available Not Available Trulicity 3 mg/0.5 mL subcutane ous pen injector INJECT THE CONTENTS OF 1 PEN UNDER THE SKIN ONCE WEEKLY 11/07 completed Not Available Not Available Not Available Vitals Date Recorded Body height Body mass index (BMI) Body weight Body temperature Heart rate Oxygen saturation Oxygen saturation in Arterial blood by Pulse oximetry Systolic And Diastolic Provider Name and Address Organization Details Last Updated DateTime 3 170.18 cm 46.5 kg/m2 392593. 93 g 98 [degF] 110 /min 97 % 97 % 168/92 mm[Hg] Sadie Phillip MA [facility] [employer] [facility] 3 14:00:19 Date Recorded Body height Body mass index (BMI) Body weight Heart rate Oxygen saturation Oxygen saturation in Arterial blood by Pulse oximetry Systolic And Diastolic Provider Name and Address Organization Details Last Updated DateTime 3 170.18 cm 46.9 kg/m2 548957. 84 g 104 /min 97 % 97 % 138/76 mm[Hg] Chelo Carroll [facility] [employer] [facility] 3 12:47:01 Date Recorded Body height Body mass index (BMI) Body weight Body temperature Heart rate Oxygen saturation Oxygen saturation in Arterial blood by Pulse oximetry Systolic And Diastolic Provider Name and Address Organization Details Last Updated DateTime 3 170.18 cm 46.4 kg/m2 101539. 34 g 98.1 [degF] 106 /min 98 % 98 % 136/78 mm[Hg] Sadie Phillip MA [facility] [employer] [facility] 3 16:24:23 Date Recorded Body height Provider Name an d Address Organization Details Last Updated DateTime 03/29/2023 170.18 cm Alivia Linda MA [place] [facility] 03/29/2023 12:06:28 Social History Question Answer Notes LastModified by Organizat ion Details LastModified Time Tobacco Smoking Status Never Smoker Not Available [employer] 10/14/2022 00:58:08 What Is Your Level Of Caffeine Consumption? Moderate [id number] Information not available 10/14/2022 In The 14 Days Before Symptom Onset, Have You Had Close Contact With A Laboratory-confi rmed COVID-19 While That Case Was Ill? No MIGRATION.83139 [id number] Information not available 10/14/2022 In The 14 Days Before Symptom Onset, Have You Had Close Contact With A Person Who Is Under Investigation For COVID-19 While That Person Was Ill? No MIGRATION.15211 [id number] Information not available 10/14/2022 What Type Of Diet Are You Following? REGULAR No Nuts MIGRATION.39158 [id number] Information not available 10/14/2022 What Is The Highest Grade Or Level Of School You Have Completed Or The Highest Degree You Have Received? [id number] MIGRATION.67010 04318 Information not available 10/14/2022 Have There Been Any Changes To Your Family Or Social Situation? Yes MIGRATION.36789 [id number] Information not available 10/14/2022 What Is The Fluoride Status Of Your Home? Unknown MIGRATION.55731 71359 Information not available 10/14/2022 Are There Any Guns Present In Your Home? No MIGRATION.71328 69302 Information not available 10/14/2022 Do You Use Insect Repellent Routinely? No MIGRATION.56991 90964 Information not available 10/14/2022 Where Do You Live? [place] MIGRATION.77785 79402 Information not available 10/14/2022 What Was The Date Of Your Most Recent Tobacco Screening? 03/04/2023 [email or web address] Information not available 03/04/2023 Do You Have Any Pets? Yes MIGRATION.90249 36094 Information not available 10/14/2022 What Is Your Relationship Status? MIGRATION.93338 25636 Information not available 10/14/2022 Do You Use Your Seat Belt Or Car Seat Routinely? Yes MIGRATION.09015 34198 Information not available 10/14/2022 Do You Have Smoke And Carbon Monoxide Detectors In Your Home? Yes MIGRATION.69083 87667 Information not available 10/14/2022 Are You Passively Exposed To Smoke? Yes MIGRATION.80402 72325 Information not available 10/14/2022 Are There Any Smokers In Your House? No MIGRATION.81540 28041 Information not available 10/14/2022 Do You Use Sunscreen Routinely? No MIGRATION.14585 70795 Information not available 10/14/2022 Have You Recently Traveled Abroad? No MIGRATION.54500 24816 Information not available 10/14/2022 Do You Have Any Dietary Restrictions? No MIGRATION.50816 38723 Information not available 10/14/2022 Sex: Unknown Functional Status Question Answer Note LastModified by Organization Details LastModified Time Do you use any illicit or recreational drugs? No MIGRATION.0301 [id number] Information not available 10/14/2022 Do you or have you ever used any other forms of tobacco or nicotine? Yes MIGRATION.0301 [id number] Information not available 10/14/2022 What is your level of alcohol consumption? Occasional MIGRATION.0301 354239 Information not available 10/14/2022 What is your occupation? [employer] MIGRATION.0301 [id number] Information not available 10/14/2022 Do you or have you ever used e-cigarettes or vape? Current user of electronic cigarettes vapes non nicotine ocassionally MIGRATION.0301 [id number] Information not available 10/14/2022 What is your exercise level? Occasional MIGRATION.0301 835265 Information not available 10/14/2022 Mental Status Question Answer Note LastModified by Organizat ion Details LastModified Time Do you feel stressed (tense, restless, nervous, or anxious, or unable to sleep at night)? [id number] [id number] Information not available 10/14/2022 Family History Relationship Description Onset Age of this Age Resolved Age Notes LastModified by Organization Details LastModified Time Father No current problems or disability [id number] Not available 10/14/2022 00:58:56 Mother No current problems or disability [id number] Not available 10/14/2022 00:58:56 Medical History Condition Response GI PROBLEMS Immunizations Vaccine Type Date Status Note Provider Nam e and Address Organization Details Recorded Time Influenza, split virus, quadrivalent, PF 07/16/2022 completed Not Available [employer] 01:55:05 COVID-19, mRNA, LNP-S, PF, karishma-sucrose, 30 mcg/0.3 mL 07/13/2023 completed Sadie Phillip, YAYO Alvarado [facility] 07/26/2023 10:57:25 Past Encounters Encounter ID Performer Location Encounter Start Date Encounter Closed Date Diagnosis/Indication Diagnosis SNOMED-CT Code Diagnosis ICD10 Code Diagnosis IMO Codes Diagnosis Note [id number] MD XIOMARA Jo_[facility] [address] [place] [address] 01/19/2022 00:00:00 01/19/2022 17:21:35 [id number] MD XIOMARA Jo_[facility] Internal Med [address] [place] [address] 02/19/2022 00:00:00 02/19/2022 15:40:23 [id number] MD XIOMARA Jo_[facility] Internal Med [address] [place] [address] 03/19/2022 00:00:00 03/19/2022 17:16:48 [id number] MD XIOMARA Jo_[facility] Internal Med [address] [place] [address] 04/30/2022 00:00:00 04/30/2022 17:17:16 [id number] MD XIOMARA Jo_[facility] Internal Med [address] [place] [address] 06/04/2022 00:00:00 06/04/2022 11:17:39 [id number] MD XIOMARA Jo_[facility] Internal Med [address] [place] [address] 07/16/2022 00:00:00 07/16/2022 13:18:02 [id number] MD XIOMARA Jo_[facility] Internal Med [address] [place] [address] 09/17/2022 00:00:00 09/17/2022 11:26:18 [id number] Melissa angelo MD [facility] Internal Med [address] [place] [address] 11/26/2022 14:22:33 11/26/2022 14:41:22 Mixed anxiety and depressive disorder 653267242 F41.8 on duloxetine - he is aware of side effects, risks, and benefitsCa office if any change in mood or behaviorHa s been referred to psychiatry - [place]- encouraged him to call for [facility] d -names/num bers previously given to patient Encouraged him to use the resources available at his school including the [employer] for tutoring help Sleep apnea 79073153 G47 .30 had CPAP titration last night, awaiting report Vitamin D deficiency 347 18549 E55.9 on supplement Proteinuria 70291373 R80 .9 following nephrology - Dr. Vasquez Hyperlipidemia 83498138 E78.5 mild, no meds, work on diet/exerc ise Unable to concentrate 60 673004 R41.840 on Wellbutrin -he is aware of side effects, risks, and benefitsCa office if any change in mood or behaviorps [facility] referral as above Obesity 781812698 E66.9 recommend healthy, well balanced mealsfocus on lean meats, fresh vegetables , fresh fruits, whole grainsredu ce fast/proce ssed foods or eating out to no more than 1-2 times per weekaim to get 30 min of exercise most days of the week- walking is a great choicealso recommend resistance training 2-3 times per week Nicotine d ependence with current use 408130057 F17.200 3 minutes spent with patient discussing risks, cessation options. Patient encouraged to quit. Wants to try nicotine patch, he is aware of side effects, risks, benefits Essential hypertension 90856545 I10 on losartan from nephrology on amlodipine , he is aware of side effects, risks, and benefitsge t appt with cardiology strongly encouraged him to stop smoking/va pingER precaution s discussed Prediabetes 990402066 R7 3.03 We discussed options to help with obesity, portion control and cravings. He elects a trial of Trulicityi acee mookity per his request pt is aware of side effects, risks, benefitspt denies any personal or family history of MEN II or MTC, denies and personal history of pancreatit ispt knows to call the office if any severe n/v or abdominal pain [id number] Krei Carrillo, [facility] Pul[facility]olo [facility] [address] [place] [address] 12/17/2022 09:51:56 12/20/2022 08:32:10 Obstructive sleep apnea syndrome 49547669 G47.33 Home study 02/2022 with AHI 8Titration completed 11/2022 with best pressure obtainedOr rhea for PAP today at 12 cm G8CDmxpdwl ed set up, use, mask comfort, cleaningEn [...] requiremen ts, call PRN for concerns Fatigue 16034699 R53.83 Multifacto ral, reassess after PAP initiation Essential hypertension 71808501 I10 Well controlled in office today, 122/70Foll ow with cardiology per PCM referral, BP log Body mass index 40+ - severely obese 435205739 Z68.42 Discussed weight management .DIscussed the relationsh ip between ONI and obesityHea lthy well balanced meals.Incr ease exercise, ideally 30 minutes most days of the week. [id number] Melissa angelo MD [facility] Internal Med [address] [facility] [address] [place] [address] 12/17/2022 15:12:09 12/17/2022 16:07:40 Immunization status unknown 704185256 Z76.89 check titers Drug of abuse screen 897 83842 Z02.83 check drug screen Tuberculos is screening 723677092 Z11.1 check PPD- he is aware he needs to come back Tuesday to have it read, then come back the following Tuesday for the 2nd test and the following Tuesday to have that one read Mixed anxi ety and depressive disorder 466957104 F41.8 on duloxetine - he is aware of side effects, risks, and benefitsCa office if any change in mood or behaviorHa s been referred to psychiatry - [place]- encouraged him to [facility] recommend[facility] d -names/num bers previously given to patient Encouraged him to use the resources available at his school including the [employer] for tutoring help Sleep apnea 16920715 G47 .30 on cpapnow following pulm- Keri Carrillo Vitamin D deficiency 347 09862 E55.9 on supplement Proteinuria 78918962 R80 .9 following nephrology - Dr. Vasquez Hyperlipidemia 13633352 E78.5 mild, no meds, work on diet/exerc ise Unable to concentrate 60 464379 R41.840 on Wellbutrin -he is aware of side effects, risks, and benefitsCa office if any change in mood or behaviorps [facility] referral as above Obesity 086723878 E66.9 recommend healthy, well balanced mealsfocus on lean meats, fresh vegetables , fresh fruits, whole grainsredu ce fast/proce ssed foods or eating out to no more than 1-2 times per weekaim to get 30 min of exercise most days of the week- walking is a great choicealso recommend resistance training 2-3 times per week Nicotine d ependence with current use 699791872 F17.200 3 minutes spent with patient discussing risks, cessation options. Patient encouraged to quit. Wants to try nicotine patch, he is aware of side effects, risks, benefits Essential hypertension 06334343 I10 on losartan from nephrology on amlodipine , he is aware of side effects, risks, and benefitsge t appt with cardiology - has been referredst peter encouraged him to stop smoking/beth De Jesus precaution s discussed Prediabetes 658705610 R7 3.03 We discussed options to help [...] abdominal pain History an d physical examination, [facility] 53221945 Z02.0 He needs to bring his Hep B and Tdap paperwork from the pharmacy next week so I can finish filling out his form [id number] Melissa angelo MD [facility] Internal Med [facility] [address] [address] 12/29/2022 12:10:40 12/29/2022 12:29:42 [id number] Melissa angelo MD [facility] Internal Med [facility] [address] [place] [place] [address] [address] 01/24/2023 13:50:32 01/24/2023 14:27:14 Mixed anxiety and depressive disorder [id number] F41.8 on duloxetine - he is aware of side effects, risks, and benefitsCa ll office if any change in mood or behaviorHa s been referred to psychiatry - [place]- encouraged him to call for his assesement Counseling recommende d -names/num bers previously given to patient Encouraged him to use the resources available at his school including the [employer] for tutoring help Sleep apnea 43368721 G47 .30 on cpapnow following pulm- Keri Carrillo Vitamin D deficiency 347 03547 E55.9 on supplement Proteinuria 32394018 R80 .9 following nephrology - Dr. Vasquez Hyperlipidemia 36497319 E78.5 mild, no meds, work on diet/exerc ise Unable to concentrate 60 376681 R41.840 on Wellbutrin -he is aware of side effects, risks, and benefitsCa ll office if any change in mood or behaviorps [facility] referral as above Obesity 126872974 E66.9 recommend healthy, well balanced mealsfocus on lean meats, fresh vegetables , fresh fruits, whole grainsredu ce fast/proce ssed foods or eating out to no more than 1-2 times per weekaim to get 30 min of exercise most days of the week- walking is a great choicealso recommend resistance training 2-3 times per week Nicotine d ependence with current use 448718226 F17.200 3 minutes spent with patient discussing risks, cessation options. Patient encouraged to quit. Wants to try nicotine patch, he is aware of side effects, risks, benefits Essential hypertension 06064768 I10 increase losartanon amlodipine , he is aware of side effects, risks, and benefitsge t appt with cardiology - has been referredst peter encouraged him to stop smoking/va pingER precaution s discussed Prediabetes 254899907 R7 3.03 We discussed options to help with obesity, portion control and cravings. He elects a trial of Trulicityi ncrease trulicity per his request pt is aware of side effects, risks, benefitspt denies any personal or family history of MEN II or MTC, denies and personal history of pancreatit ispt knows to call the office if any severe n/v or abdominal pain [id number] Keri Carrillo, [facility] Pulmonolo gy [place] [address] [facility] [address] [place] [address] 01/27/2023 12:45:38 01/27/2023 13:51:39 Sleep apnea 39199551 G47.30 Obstructiv e sleep apnea syndrome 11568307 G47.33 Home study 02/2022 with AHI 8Titration completed 11/2022 with best pressure obtainedOr rhea for PAP at last OV - 12 cm [id number] ed set up, use, mask comfort, cleaningEn [...] telehealth ), call PRN for concerns Fatigue 52468055 R53.83 Multifacto ral, reassess after PAP initiation Essential hypertension 37773215 I10 Well controlled in office todayFollo w with cardiology per PCM referral, BP log Body mass index 40+ - severely obese 911189744 Z68.42 Discussed weight management .Discussed the relationsh ip between ONI and obesityHea lthy well balanced meals.Incr ease exercise, ideally 30 minutes most days of the week. 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 Vasquez Hyperlipidemia 86088219 E78.5 mild, no meds, work on diet/exerc ise Unable to concentrate 60 034760 R41.840 on Wellbutrin -he is aware of side effects, risks, and benefitsCa office if any change in mood or behaviorps [facility] referral as above Obesity 632966609 E66.9 recommend healthy, well balanced mealsfocus on lean meats, fresh vegetables , fresh fruits, whole grainsredu ce fast/proce ssed foods or eating out to no more than 1-2 times per weekaim to get 30 min of exercise most days of the week- walking is a great choicealso recommend resistance training 2-3 times per week Nicotine d ependence with current use 800155221 F17.200 3 minutes spent with patient discussing risks, cessation options. Patient encouraged to quit. Wants to try nicotine patch, he is aware of side effects, risks, benefits Essential hypertension 58740984 I10 on losartanon amlodipine , he is aware of side effects, risks, and benefitsge t appt with cardiology - has been referred, he decided not to gostrongly encouraged him to stop smoking/va pingER precaution s discussed Prediabetes 858544383 R7 3.03 We discussed options to help [...] or abdominal pain Adult heal th examination 132888201 Z00.01 Depression screening 171 772031 Z13.31 [id number] Keri Carrillo, [facility] Pulmonolo [facility] [place] [address] [place] [address] 03/29/2023 12:05:27 03/30/2023 12:27:10 Obstructive sleep apnea syndrome 70969997 G47.33 Home study 02/2022 with AHI 8Titration [...] C in 4-6 weeks for compliance Fatigue 33252003 R53.83 Multifacto ral, reassess after PAP compliance [id number] Keri Carrillo, [employer] [facility] Pulmonolo gy [place] [address] [place] [address] 05/10/2023 12:20:03 05/10/2023 15:50:44 Obstructive sleep apnea syndrome 54985178 G47.33 Home study 02/2022 with AHI 8Titration [...] Recorded Advance Directives Directive None Recorded Payers Insurance Date Sequence Insurance Name Policy Number Policy Herrera Covered Member ID Herrera Member ID Guarantor Name 11/07/2024 1 [facility] - DOS ON OR AFTER 21 (MEDICAID REPLACEMENT - HMO) Oscar Kebede [id number] Oscar Kebede 02/04/2025 1 [employer] - OPEN ACCESS Oscar Kebede [id number] Oscar Kebede Notes Date Note Type Note Provider Name and Address Organization Details Recorded Time 01/24/2023 text/html Oscar presents today for follow-up. He tells me he was able to turn all of his paperwork and he starts the [employer] program in February. He is still struggling [...] is working well for him. Rachel Julio, [employer] [address] [facility], [facility] [address], [place], [address], [place] [employer] 01/24/2023 14:23:23 01/27/2023 text/html Mr Kebede presents today to follow up on +sleep study, fatigue, restless sleep.Continues to report fatigue and poor sleep patterns.Does not have a set bedtimeWakes around the same time each day regardless of bedtimeHe is in nursing school and tells me he has difficulty with concentration at times Keri Carrillo, [facility]- [address], [place], [address], [place] [employer] 01/27/2023 14:29:40 03/04/2023 text/html Oscar presents today for follow-up. He is also due for annual wellness exam. His blood pressure is finally well controlled after we increased his losartan. 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 He has decided he does not want to go. He did see the psychiatrist and they started him on Strattera. He reports he has been doing very well on this. He has started [employer] school and tells me he is at [...] not interested in cessation at this time. SHANDRA Marie [address], [address], [place], [address], [employer] [facility] [employer] 03/04/2023 17:24:46 03/29/2023 text/html Mr Kebede presents today via [employer] to follow up on +sleep study, fatigue, restless sleep, new ONI.Reports that he has had significant improvement with PAP useHe does continue to forget to put it on some nights and can tell a difference in his sleep qualityMask fits well, he does not wake R/T mask leakHerbert is in nursing school and tells me he can focus better after he uses his PAP at nightDenies aerophagia and xerostomiaMild burping in the morning when he wakes upNo morning headaches Keri Carrillo, [facility]- [address], [address], [place], [address], [employer] [facility] 03/29/2023 14:22:37 05/10/2023 text/html Mr Kebede presents today via Facetime to follow up on [...] morning when he wakes upNo morning headaches Keri Carrillo, [employer] [address], [place], [address], [employer] [facility] 05/10/2023 15:55:35
[2025-06-03 09:29] LABS: Add Urine Microscopic? NO; Appearance Urine Clear (Clear); Glucose Urine UA Negative (Negative); Leukocyte Esterase Ur Negative LEU/UL (Negative); Nitrate Urine Negative (Negative); Specific Grav Ur 1.018 (1.001-1.035)
== END 2025-06-03 10:55 | disposition home or self-care (01) ==
PROVIDERS: Emergency Provider Emergency Medicine; PCP Emergency Medicine
DX: K57.32 Diverticulitis of large intestine without perforation or abscess without bleeding (principal); F17.290 Nicotine dependence, other tobacco product, uncomplicated
CPT/HCPCS: 36415; 74177; 80053; 81003; 83690; 85025; 96361; 96374; 99284; J2550; J7030; Q9967